=== PATIENT | female | born 1985 | race Hispanic/Latino ===

== ENCOUNTER 2020-05-08 21:41 | Inpatient (IN) | payer SELFPAY ==
--- OUTSIDE RECORDS SUMMARY | 2020-05-08 21:43 | XMS REPORT | Continuity of Care Document ---
:1985 Author Organization [facility] t Address [address] [place] [address] Dr. Adamson [address] [place] [id number] Care Team Providers Name Role Phone Unavailable Unavailable Unavailable Problems This patient has no known problems. Allergies, Adverse Reactions, Alerts This patient has no known allergies or adverse reactions. Medications This patient has no known medications. Procedures This patient has no known procedures. Results This patient has no known results.
[2020-05-08] MEDS ORDERED: IBUPROFEN 200 MG TAB PO ONE (22:23)
[2020-05-08] MEDS ORDERED: IBUPROFEN 400 MG TAB ONE (22:23)
[2020-05-08] MEDS ORDERED: NA CHLORIDE 0.9% 1,000 ML ONE ×2 (23:35→23:48)
[2020-05-08] MEDS ORDERED: CEFTRIAXONE/SWI 1gm 1 GM/10 ML SYR ONE (23:48)
[2020-05-09] MEDS ORDERED: MORPHINE 2 MG/ML SYR ONE (00:16)
[2020-05-09] MEDS ORDERED: ONDANSETRON 4 MG/2 ML VIAL ONE (00:16)
[2020-05-09 00:23] LABS: Absolute Lymphocytes (CBC) 0.6 K/uL (0.7-4.9); Basophils % 0.2 % (0-1.3); Hematocrit 37.4 % (36.0-45.0); Lymphocytes % 2.8 % (15.3-44.8); MPV 8.9 fL (7.6-11.3); RBC Red Blood Cell Count 4.15 M/uL (3.86-4.86)
[2020-05-09 00:24] LABS: Albumin 3.7 g/dL (3.4-5.0); Bilirubin Total 0.3 mg/dL (0.2-1.0); Potassium 3.3 mmol/L (3.5-5.1)
[2020-05-09] MEDS ORDERED: DIPHENHYDRAMINE 50 MG/ML VIAL ONE (00:29)
[2020-05-09] MEDS ORDERED: AZITHROMYCIN 500 MG INJ IVPB ONE (01:17)
[2020-05-09] MEDS ORDERED: NA CHLORIDE 0.9% 0 ML ONE (01:18)
[2020-05-09 01:38] LABS: Blood Morphology Comment NOT SEEN (NOT SEEN); Platelet Estimate ADEQ
--- NOTE | 2020-05-09 01:48 | EDPHYS ---
Physician Documentation [facility] Name: Carmelita Veras Age: 35 yrs Sex: Female : 1985 Arrival Date: 05/08/2020 Time: 21:44 Bed 20 Private MD: ED Physician Nba Reynolds HPI: 05/08 22:37 This 35 yrs old Female presents to ER via Ambulatory with complaints of Fever, derek Cough. 22:37 The patient reports fever, that was measured at 102 degrees Fahrenheit. Onset: The derek symptoms/episode began/occurred 4 day(s) ago. Modifying factors: there are no obvious modifying factors. Associated signs and symptoms: Pertinent positives: arthralgias, cough, runny nose, sinus congestion, sore throat. Severity of symptoms: At their worst the symptoms were. 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 - Social history:: Smoking status: Patient reports the use of cigarette tobacco products, smokes one-half pack cigarettes per day. ROS: 22:37 Eyes: Negative for injury, pain, redness, and discharge, Neck: Negative for injury, derek pain, and swelling, Cardiovascular: Negative for chest pain, palpitations, and edema, Abdomen/GI: Negative for abdominal pain, nausea, vomiting, diarrhea, and constipation, Back: Negative for injury and pain, : Negative for injury, bleeding, discharge, and swelling, MS/Extremity: Negative for injury and deformity, Skin: Negative for injury, rash, and discoloration, Neuro: Negative for headache, weakness, numbness, tingling, and seizure, Psych: Negative for depression, anxiety, suicide ideation, homicidal ideation, and hallucinations, Allergy/Immunology: Negative for hives, rash, and allergies, Endocrine: Negative for neck swelling, polydipsia, polyuria, polyphagia, and marked weight changes, Hematologic/Lymphatic: Negative for swollen nodes, abnormal bleeding, and unusual bruising. 22:37 Constitutional: Positive for body aches, chills, fatigue, fever, malaise. 22:37 Eyes: 22:37 ENT: Positive for sore throat. 22:37 Cardiovascular: Positive for palpitations. 22:37 Respiratory: Positive for cough. 22:37 MS/extremity: Positive for pain, of the right leg and left leg. Exam: 22:37 Head/Face: Normocephalic, atraumatic. Eyes: Pupils equal round and reactive to light, derek extra-ocular motions intact. Lids and lashes normal. Conjunctiva and sclera are non-icteric and not injected. Cornea within normal limits. Periorbital areas with no swelling, redness, or edema. Neck: Trachea midline, no thyromegaly or masses palpated, and no cervical lymphadenopathy. Supple, full range of motion without nuchal rigidity, or vertebral point tenderness. No Meningismus. Chest/axilla: Normal chest wall appearance and motion. Nontender with no deformity. No lesions are appreciated. Cardiovascular: Regular rate and rhythm with a normal S1 and S2. No gallops, murmurs, or rubs. Normal PMI, no JVD. No pulse deficits. Respiratory: Lungs have equal breath sounds bilaterally, clear to auscultation and percussion. No rales, rhonchi or wheezes noted. No increased work of breathing, no retractions or nasal flaring. Abdomen/GI: Soft, non-tender, with normal bowel sounds. No distension or tympany. No guarding or rebound. No evidence of tenderness throughout. Back: No spinal tenderness. No costovertebral tenderness. Full range of motion. Skin: Warm, dry with normal turgor. Normal color with no rashes, no lesions, and no evidence of cellulitis. MS/ Extremity: Pulses equal, no cyanosis. Neurovascular intact. Full, normal range of motion. Neuro: Awake and alert, GCS 15, oriented to person, place, time, and situation. Cranial nerves II-XII grossly intact. Motor strength 5/5 in all extremities. Sensory grossly intact. Cerebellar exam normal. Normal gait. Psych: Awake, alert, with orientation to person, place and time. Behavior, mood, and affect are within normal limits. 22:37 ENT: Posterior pharynx: Airway: normal, no evidence of obstruction, Tonsils: bilaterally enlarged, with erythema, with exudate, Uvula: normal, midline, non-edematous, no erythema, swelling, is not appreciated, erythema, is not appreciated, exudate, is not appreciated, peritonsillar mass, is not appreciated, pooling of secretions, is not appreciated. 23:36 Musculoskeletal/extremity: DVT Exam: No signs of deep vein thrombosis. no pain, no derek swelling, no tenderness, negative Homans' sign noted on exam, no appreciated bluish discoloration, no erythema, no increased warmth. 05/09 00:39 Musculoskeletal/extremity: ROM: intact in all extremities, full active range of motion, derek full passive range of motion, Circulation is intact in all extremities. Sensation intact. Compartment Syndrome exam of affected extremity: is normal. 01:10 Neck: ROM/movement: is normal, no acute changes, Meningeal signs: are not present, derek Kernig's sign is negative, Brudzinski's sign is negative. Vital Signs: 05/08 22:07 BP 103 / 57; Pulse 89; Resp 18; Temp 101.8(O); Pulse Ox 99% on R/A; lp1 22:12 Weight 56.7 kg (R); Height 4 ft. 11 in. (149.86 cm); lp1 05/09 01:31 BP 98 / 55; Pulse 68; Resp 16; Temp 99.6(O); Pulse Ox 100% on R/A; Pain 2/10; jb4 02:18 BP 101 / 62; Pulse 69; Resp 16; Pulse Ox 100% on R/A; jb4 03:05 BP 91 / 47; Pulse 64; Resp 16; Pulse Ox 100% on R/A; jb4 04:04 BP 93 / 53; Pulse 67; Resp 16; Pulse Ox 100% on R/A; jb4 04:18 Temp 98.2(O); jb4 05/08 22:12 Body Mass Index 25.25 (56.70 kg, 149.86 cm) lp1 MDM: 05/08 22:25 Patient medically screened. [facility] 22:49 Data reviewed: vital signs, nurses notes, lab test result(s), radiologic studies, plain derek films. 22:49 Differential diagnosis: viral Infection, bacterial infection, URI, bronchitis, derek pneumonia UTI. 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 rate is 89 beats/min, rhythm is normal sinus rhythm, Pulse oximetry: on room air is 99 %. Test interpretation: by ED physician or midlevel provider: plain radiologic studies. Counseling: I had a detailed discussion with the patient and/or guardian regarding: the historical points, exam findings, and any diagnostic results supporting the discharge/admit diagnosis, lab results, radiology results. 23:33 ED course: improved, follow up pcp/ dr ross. [facility] 05/09 01:08 ED course: pt feeling better, no abd pain, no cvat, non toxic, mono pending, ct pe derek pending, no homans and or cords, no hx dvt. 05/08 22:12 Order name: Flu; Complete Time: 23:31 lp1 05/08 22:12 Order name: Strep; Complete Time: 23:31 [facility] 05/08 22:36 Order name: COVID-19 [facility] 05/08 22:49 Order name: CBC with Diff; Complete Time: 01:44 [facility] 05/08 22:49 Order name: Comprehensive Metabolic Panel; Complete Time: 00:26 [facility] 05/08 23:14 Order name: Throat Culture [facility] 05/08 23:34 Order name: [place] Screen Profile; Complete Time: 01:30 ma 05/09 00:36 Order name: Manual Differential; Complete Time: 01:44 [facility] 05/09 00:39 Order name: Blood Culture Adult (2) [facility] 05/09 00:39 Order name: Lactate; Complete Time: 01:46 [facility] 05/09 00:39 Order name: Procalcitonin; Complete Time: 02:11 [facility] 05/09 01:06 Order name: Urine Dipstick--Ancillary (enter results) ma 05/09 01:06 Order name: Urine --Ancillary (enter results) ma 05/09 01:34 Order name: Urine Culture [facility] 05/08 22:36 Order name: PO challenge; Complete Time: 22:42 [facility] 05/08 22:36 Order name: Chest Single View XRAY [facility] 05/08 22:50 Order name: Urine Dipstick-Ancillary (obtain specimen); Complete Time: 01:06 [facility] 05/08 22:50 Order name: Urine Test (obtain specimen); Complete Time: 01:06 [facility] 05/09 00:39 Order name: CT Chest For PE Angio [facility] 05/09 01:48 Order name: INCENTIVE SPIROMETRY [facility] 05/09 00:27 Order name: PO challenge: juice; Complete Time: 01:32 [facility] Administered Medications: 05/08 22:21 Drug: Motrin 600 mg Route: PO; lp1 05/09 00:00 Follow up: Response: No adverse reaction; Temperature is decreased jb4 00:28 Drug: Zofran (Ondansetron) 4 mg Route: IVP; Site: right forearm; jb4 01:00 Follow up: Response: No adverse reaction; Nausea is decreased jb4 00:30 Drug: NS 0.9% 1000 ml Route: IV; Rate: 1 bolus; Site: right forearm; jb4 01:30 Follow up: Response: No adverse reaction; IV Status: Completed infusion; IV Intake: jb4 1000ml 00:30 Drug: NS 0.9% 1000 ml Route: IV; Rate: 1 bolus; Site: right antecubital; jb4 00:32 Drug: morphine 2 mg Route: IVP; Site: right forearm; jb4 00:33 Follow up: Response: Adverse reaction, Physician notified; Pain is decreased jb4 00:35 Drug: Benadryl 25 mg Route: IVP; Site: right forearm; jb4 01:32 Follow up: Response: No adverse reaction; Marked relief of symptoms jb4 00:36 Drug: Rocephin 1 grams Route: IV; Rate: per protocol; Site: right antecubital; jb4 00:39 Follow up: Response: No adverse reaction; IV Status: Completed infusion jb4 01:15 Not Given (Duplicate Order): Zithromax 500 mg IVPB once over 1 hrs; mix in 250 mL NS [facility] 01:50 Drug: Tylenol 650 mg Route: PO; jb4 02:50 Follow up: Response: No adverse reaction; Pain is decreased jb4 02:08 Not Given (Physician Discretion): Augmentin 875 mg PO once jb4 Disposition: 05/09/20 02:14 Hospitalization ordered by Obed Quiroz for Observation. Preliminary diagnosis are Fever, unspecified, Acute tonsillitis, Malaise and fatigue, Elevated white blood cell count, Bandemia, Urinary tract infection, site not specified. - Bed requested for Telemetry/MedSurg (observation). - Status is Observation. ss - Condition is Stable. - Problem is new. - Symptoms have improved. Signatures: Dispatcher [employer] EDMS Nba Reynolds MD MD cha Smirch, Shelby, RN RN ss Lisa Jones RN RN lp1 Deborah Rubio RN RN tl1 Manuel Altamirano, RN RN jb4 Emmy Justin Corrections: (The following items were deleted from the chart) 02:10 01:47 05/09/2020 01:47 Discharged to Home. Impression: Fever, unspecified; Acute derek tonsillitis; Cough; Hypokalemia; Elevated white blood cell count; Urinary tract infection, site not specified; Bandemia. Condition is Stable. Discharge Instructions: Fever, Adult, Tonsillitis, [id number], Fever, Adult, [id number], Urinary Tract Infection, Adult, Urinary Tract Infection, Adult, [id number], Cough, Adult. Prescriptions for Zofran 4 mg Oral Tablet - take 1 tablet by ORAL route every 12 hours As needed; 14 tablet, Augmentin 875-125 mg Oral Tablet - take 1 tablet by ORAL route every 12 hours for 10 days; 20 tablet. and Forms are Medication Reconciliation Form, Thank You Letter, Antibiotic Education, Prescription Opioid Use. Follow up: Private Physician; When: 2 - 3 days; Reason: Recheck today's complaints, Continuance of care, Re-evaluation by your physician. Follow up: Jose Jordan; When: 2 - 3 days; Reason: Recheck today's complaints, Re-evaluation by your physician. Problem is new. Symptoms have improved. derek 04:17 02:14 Hospitalization Ordered by Obed Quiroz for Observation. Preliminary diagnosis tl1 is Fever, unspecified; Acute tonsillitis; Malaise and fatigue; Elevated white blood cell count; Bandemia; Urinary tract infection, site not specified. Bed requested for Telemetry/MedSurg (observation). Status is Observation. Condition is Stable. Problem is new. Symptoms have improved. derek 07:55 04:17 05/09/2020 02:14 Hospitalization Ordered by Obed Quiroz for Observation. eb Preliminary diagnosis is Fever, unspecified; Acute tonsillitis; Malaise and fatigue; Elevated white blood cell count; Bandemia; Urinary tract infection, site not specified. Bed requested for [facility] ER [facility]. Status is Observation. Condition is Stable. Problem is new. Symptoms have improved. tl1 08:35 07:55 05/09/2020 02:14 Hospitalization Ordered by Obed Quiroz for Observation. ss Preliminary diagnosis is Fever, unspecified; Acute tonsillitis; Malaise and fatigue; Elevated white blood cell count; Bandemia; Urinary tract infection, site not specified. Bed requested for Telemetry/MedSurg (observation). Status is Observation. Condition is Stable. Problem is new. Symptoms have improved. eb
--- NOTE | 2020-05-09 01:48 | ER ---
Nurse's Notes [facility] Name: Carmelita Veras Age: 35 yrs Sex: Female : 1985 Arrival Date: 05/08/2020 Time: 21:44 Bed 20 Private MD: Diagnosis: Fever, unspecified;Acute tonsillitis;Malaise and fatigue;Elevated white blood cell count;Bandemia;Urinary tract infection, site not specified Presentation: 05/08 22:07 Chief complaint: Patient states: Patient complaint of fever, cough, general body lp1 cramps, nausea, throat pain x 3 days; States fever of 103.3 an hour ago, took x2 650 mg Tylenol. Coronavirus screen: Patient reports a cough. Patient denies shortness of breath or difficulty breathing. Patient reports a measured and/or subjective temperature greater than 100.4F. Patient denies travel on a cruise ship or to a country the [facility] currently lists as an affected area. Patient denies contact with known and/or suspected case of COVID-19. Ebola Screen: No symptoms or risks identified at this time. Initial Sepsis Screen: Does the patient meet any 2 criteria? No. Patient's initial sepsis screen is negative. Does the patient have a suspected source of infection? No. Patient's initial sepsis screen is negative. Risk Assessment: Do you want to hurt yourself or someone else? Patient reports no desire to harm self or others. Onset of symptoms was December 05, 2019. 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 - Social history:: Smoking status: Patient reports the use of cigarette tobacco products, smokes one-half pack cigarettes per day. Screenin:10 Abuse screen: Denies threats or abuse. Denies injuries from another. Nutritional lp1 screening: No deficits noted. Tuberculosis screening: No symptoms or risk factors identified. Fall Risk None identified. Assessment: 22:50 General: Appears in no apparent distress. uncomfortable, Behavior is cooperative, jb4 anxious, crying. Pain: Complains of pain in abdomen, right leg and left leg Pain radiates to low back area Pain currently is 10 out of 10 on a pain scale. Quality of pain is described as burning. Neuro: Level of Consciousness is awake, alert, obeys commands, Oriented to person, place, time, situation. Cardiovascular: Patient's skin is warm and dry. Respiratory: Airway is patent Respiratory effort is even, unlabored, Respiratory pattern is regular, symmetrical, Denies shortness of breath. GI: Abdomen is flat, non-distended, Reports lower abdominal pain, nausea. : Reports pain in lower back. EENT: Throat is clear is reddened with gag reflex present. Derm: Skin is intact, Skin is pink, warm \T\ dry. Musculoskeletal: Circulation, motion, and sensation intact. Range of motion: intact in all extremities. 05/09 00:00 Reassessment: Patient appears in no apparent distress at this time. Patient and/or jb4 family updated on plan of care and expected duration. Pain level reassessed. Patient is alert, oriented x 3, equal unlabored respirations, skin warm/dry/pink. 01:00 Reassessment: Patient appears in no apparent distress at this time. Patient and/or jb4 family updated on plan of care and expected duration. Pain level reassessed. Patient is alert, oriented x 3, equal unlabored respirations, skin warm/dry/pink. Patient states feeling better. Patient states symptoms have improved. 01:30 Reassessment: Patient appears in no apparent distress at this time. Patient and/or jb4 family updated on plan of care and expected duration. Pain level reassessed. Patient is alert, oriented x 3, equal unlabored respirations, skin warm/dry/pink. Pt reports leg pain is much better. Patient states feeling better. 02:30 Reassessment: Patient appears in no apparent distress at this time. Patient and/or jb4 family updated on plan of care and expected duration. Pain level reassessed. Patient is alert, oriented x 3, equal unlabored respirations, skin warm/dry/pink. 03:30 Reassessment: Patient appears in no apparent distress at this time. Patient and/or jb4 family updated on plan of care and expected duration. Pain level reassessed. Patient is alert, oriented x 3, equal unlabored respirations, skin warm/dry/pink. Patient states feeling better. 04:04 Reassessment: Patient appears in no apparent distress at this time. Patient and/or jb4 family updated on plan of care and expected duration. Pain level reassessed. Patient is alert, oriented x 3, equal unlabored respirations, skin warm/dry/pink. Pt reports normally having low blood pressure. 04:18 Reassessment: REport given to RAIMUNDO Moreno. jb4 Vital Signs: 05/08 22:07 BP 103 / 57; Pulse 89; Resp 18; Temp 101.8(O); Pulse Ox 99% on R/A; lp1 22:12 Weight 56.7 kg (R); Height 4 ft. 11 in. (149.86 cm); lp1 05/09 01:31 BP 98 / 55; Pulse 68; Resp 16; Temp 99.6(O); Pulse Ox 100% on R/A; Pain 2/10; jb4 02:18 BP 101 / 62; Pulse 69; Resp 16; Pulse Ox 100% on R/A; jb4 03:05 BP 91 / 47; Pulse 64; Resp 16; Pulse Ox 100% on R/A; jb4 04:04 BP 93 / 53; Pulse 67; Resp 16; Pulse Ox 100% on R/A; jb4 04:18 Temp 98.2(O); jb4 05/08 22:12 Body Mass Index 25.25 (56.70 kg, 149.86 cm) lp1 ED Course: 05/08 21:44 Patient arrived in ED. cl3 22:10 Triage completed. lp1 22:10 Arm band placed on right wrist. lp1 22:21 Flu and/or RSV swab sent to lab. Strep swab sent to lab. lp1 22:25 Nba Reynolds MD is Attending Physician. [facility] 22:42 Manuel Altamirano, RAIMUNDO is Primary Nurse. jb4 22:53 Chest Single View XRAY In Process Unspecified. EDMS 05/09 01:22 CT Chest For PE Angio In Process Unspecified. EDMS 01:47 Jose Jordan MD is Referral Physician. [facility] 02:12 Obed Quiroz is Hospitalizing Provider. [facility] Administered Medications: 06/24 22:21 Drug: Motrin 600 mg Route: PO; lp1 05/09 00:00 Follow up: Response: No adverse reaction; Temperature is decreased jb4 00:28 Drug: Zofran (Ondansetron) 4 mg Route: IVP; Site: right forearm; jb4 01:00 Follow up: Response: No adverse reaction; Nausea is decreased jb4 00:30 Drug: NS 0.9% 1000 ml Route: IV; Rate: 1 bolus; Site: right forearm; jb4 01:30 Follow up: Response: No adverse reaction; IV Status: Completed infusion; IV Intake: jb4 1000ml 00:30 Drug: NS 0.9% 1000 ml Route: IV; Rate: 1 bolus; Site: right antecubital; jb4 00:32 Drug: morphine 2 mg Route: IVP; Site: right forearm; jb4 00:33 Follow up: Response: Adverse reaction, Physician notified; Pain is decreased jb4 00:35 Drug: Benadryl 25 mg Route: IVP; Site: right forearm; jb4 01:32 Follow up: Response: No adverse reaction; Marked relief of symptoms jb4 00:36 Drug: Rocephin 1 grams Route: IV; Rate: per protocol; Site: right antecubital; jb4 00:39 Follow up: Response: No adverse reaction; IV Status: Completed infusion jb4 01:15 Not Given (Duplicate Order): Zithromax 500 mg IVPB once over 1 hrs; mix in 250 mL NS derek 01:50 Drug: Tylenol 650 mg Route: PO; jb4 02:50 Follow up: Response: No adverse reaction; Pain is decreased jb4 02:08 Not Given (Physician Discretion): Augmentin 875 mg PO once jb4 Intake: 01:30 IV: 1000ml; Total: 1000ml. jb4 Outcome: 01:47 Discharge ordered by . derek 02:14 Decision to Hospitalize by Provider. derek 08:35 Patient left the ED. ss Signatures: Dispatcher [employer] EDCA Nba Reynolds MD MD cha Smirch, Shelby, RN RN ss Lisa Jones, RN RN lp1 Manuel Altamirano RN RN jb4 Linda Reyes cl3 Corrections: (The following items were deleted from the chart) 01:33 00:00 Response: No adverse reaction; Temperature is decreased jb4 jb4 04:18 04:04 Reassessment: Patient appears in no apparent distress at this time. Patient jb4 and/or family updated on plan of care and expected duration. Pain level reassessed. Patient is alert, oriented x 3, equal unlabored respirations, skin warm/dry/pink. jb4
[2020-05-09] MEDS ORDERED: ACETAMINOPHEN 325 MG TABLET ONE (01:54)
[2020-05-09 02:57] LABS: Urine Blood 2+ (NEG); Urine Glucose NEGATIVE (NEG); Urine Protein TRACE (NEG)
--- NOTE | 2020-05-09 03:30 | P.HP ---
Certification for Inpatient Patient admitted to: Observation With expected LOS: <2 Midnights Practitioner: I am a practitioner with admitting privileges, knowledge of patient current condition, hospital course, and medical plan of care. Services: Services provided to patient in accordance with Admission requirements found in Title 42 Section 412.3 of the Code of Federal Regulations Patient History Date of Service: 05/09/20 Reason for admission: Febrile illness History of Present Illness: 35-year-old woman with a history of nephrolithiasis presented emergency department with a complaint of fever, sore throat, generalized body aches, nausea and vomiting which has been present for 3 days. She reports painful swallowing and nonproductive cough. Workup in the ED revealed leukocytosis, fever up to 101, bandemia and elevated procalcitonin. Rapid Monospot test is negative. Patient is hospitalized for further management. Allergies Tramadol HCl Allergy (Uncoded 08/03/17 17:30) Unknown - Past Medical/Surgical History -: Nephrolithiasis -: Ovarian cyst - Family History Family History: Reviewed- Non-Contributory - Social History Smoking Status: Never smoker Alcohol use: No CD- Drugs: No Place of Residence: Home Review of Systems Other: Except as documented, all other systems reviewed and negative. Physical Examination - Physical Exam General: Alert, In no apparent distress HEENT: Mucous membr. moist/pink, Sclerae nonicteric Neck: Supple, JVD not distended Respiratory: Clear to auscultation bilaterally, Normal air movement Cardiovascular: No edema, Regular rate/rhythm, Normal S1 S2 Gastrointestinal: Normal bowel sounds, Soft and benign, No tenderness Musculoskeletal: No swelling, No erythema Integumentary: No rashes Neurological: Normal speech, Normal strength at 5/5 x4 extr - Studies Laboratory Data (last 24 hrs) 05/08/20 23:50: Sodium 135 L, Potassium 3.3 L, BUN 12, Creatinine 0.84, Glucose 133 H, Total Bilirubin 0.3, AST 47 H, ALT 36, Alkaline Phosphatase 64 05/08/20 23:50: WBC 22.0 H*, Hgb 12.2, Hct 37.4, Plt Count 184 Microbiology Data (last 24 hrs): 05/08/20 22:15 Nasopharnyx Influenza Type A Antigen Screen - Final 05/08/20 22:15 Nasopharnyx Influenza Type B Antigen Screen - Final 05/08/20 22:15 Throat Group A Streptococcus Rapid Screen - Final Assessment and Plan - Problems (Diagnosis) (1) Febrile illness, acute Current Visit: Yes Status: Acute (2) Leukocytosis Current Visit: Yes Status: Acute (3) Acute tonsillitis Current Visit: Yes Status: Acute - Plan Place under observation Supportive measures IV hydration Empiric IV Rocephin. Droplet isolation Screened for COVID 19 - Advance Directives Does patient have a Living Will: No Does patient have a Durable POA for Healthcare: No
[2020-05-09] MEDS ORDERED: ONDANSETRON 4 MG/2 ML VIAL IV PRN (04:37)
[2020-05-09] MEDS: NA CHLORIDE 0.9% 1,000 ML IV SCH ×2 (04:37→14:37)
[2020-05-09] MEDS ORDERED: NA CHLORIDE 0.9% 1,000 ML ONE (05:27)
[2020-05-09] MEDS: HYDROCODONE/APAP 5/325 MG TAB PO PRN ×3 (05:48→20:06)
[2020-05-09] MEDS ORDERED: HYDROCODONE/APAP 5/325 MG TAB ONE (05:51)
[2020-05-09] MEDS ORDERED: CEFTRIAXONE/SWI 1gm 1 GM/10 ML SYR ONE (07:00)
[2020-05-09] MEDS ORDERED: CEFTRIAXONE 1 GM/NS 50 ML 1 GM/50 ML BAG IV SCH (07:00)
--- NOTE | 2020-05-09 08:50 | RAD REPORT ---
EXAM DESCRIPTION: RAD - Chest Single View - 05/08/2020 10:53 pm CLINICAL HISTORY: Cough;Fever Chest pain. COMPARISON: Chest Single View dated 08/03/2017; CHEST PA AND LAT 2 VIEW dated 01/22/2014; CHEST SINGLE VIEW dated 09/17/2008; CHEST PA AND LAT 2 VIEW dated 07/02/1998 FINDINGS: Portable technique limits examination quality. The lungs are grossly clear. The heart is normal in size. No displaced fractures. IMPRESSION: No acute intrathoracic process suspected.
[2020-05-09] MEDS ORDERED: ACETAMINOPHEN 325 MG TABLET PO ONE (08:53)
[2020-05-09] MEDS: CEFTRIAXONE/SWI 1gm 1 GM/10 ML SYR IV SCH (09:48)
[2020-05-09] MEDS: ENOXAPARIN 40 MG/0.4 ML SQ SCH (09:49)
[2020-05-09] MEDS ORDERED: KETOROLAC 30 MG/ML INJ IV ONE ×2 (11:54→23:07)
[2020-05-09] MEDS ORDERED: PHENOL 1.4% ORAL SPRAY 180ML MM PRN (11:54)
[2020-05-09 12:08] VITALS: BMI 25.2
[2020-05-09] MEDS ORDERED: POTASSIUM CL SA 10 MEQ TAB PO ONE (14:19)
[2020-05-09] MEDS: MORPHINE 2 MG/ML SYR IV PRN ×2 (15:04→18:46)
--- NOTE | 2020-05-09 20:10 | PN ---
Date of Progress Note: 05/09/2020 Subjective: Patient continues to complain of some headache, which was improved with Toradol. Still having some sore throat. Medications: List reviewed. Physical Examination: Deferred. Patient was seen around 4 a.m. this morning by admitting physician. Due to risk of COVID transition physical examination has been deferred. Laboratory Data: Procalcitonin 25. [place] screen negative. UA shows trace leukocyte esterase. Influenza screen is negative. Group A strep rapid screen also negative. Assessment And Plan: 1. Acute febrile illness. I am suspecting Coronavirus disease. Patient is under investigation. Test has been sent out to [facility], currently pending. We will continue with supportive care. 2. Acute tonsillitis. 3. Abnormal urinalysis, possible urinary tract infection. We will start on Rocephin. 4. Deep vein thrombosis prophylaxis, Lovenox. PLAN: Continue droplet isolation. Follow up on COVID screening. We will adjust pain medications. CT angio chest shows no pulmonary embolism, no focal consolidation, mild interstitial edema and/or atelectasis. We will continue symptomatic treatment. BHUPENDRA Voice ID: [id number] Report ID: [id number] MARCELO
[2020-05-10] MEDS: NA CHLORIDE 0.9% 1,000 ML IV SCH ×2 (00:37→10:05)
[2020-05-10] MEDS ORDERED: MORPHINE 4 MG/ML SYR IV ONE (00:41)
[2020-05-10 00:59] VITALS: TEMP 98.4
[2020-05-10] MEDS: ACETAMINOPHEN 500 MG TAB PO PRN ×3 (01:00→11:07)
--- NOTE | 2020-05-10 02:51 | RAD REPORT ---
EXAM DESCRIPTION: CT Angiography Chest With Intravenous Contrast CLINICAL HISTORY: The patient is 35 years old and is Female; 22 k wbc;Chest pain;Dyspnea;Fever TECHNIQUE: Axial computed tomographic angiography images of the chest with intravenous contrast. T his CT exam was performed using one or more of the following dose reduction techniques: automated e xposure control, adjustment of the mA and/or kV according to patient size, and/or use of iterative re construction technique. MIP reconstructed images were created and reviewed. Oblique reformatted images were created and reviewed. DLP: 200 mGy*cm COMPARISON: Chest radiograph of the same day. FINDINGS: PULMONARY ARTERIES: Unremarkable. No pulmonary embolism. AORTA: No acute findings. No thoracic aortic aneurysm. LUNGS: Mild interlobular septal thickening. Dependent subsegmental atelectasis. No focal consolida tion. PLEURAL SPACE: Unremarkable. No significant effusion. No pneumothorax. HEART: Unremarkable. No cardiomegaly. No significant pericardial effusion. No evidence of RV dysfunction. BONES/JOINTS: No acute fracture. No dislocation. SOFT TISSUES: Bilateral breast implants. LYMPH NODES: Unremarkable. No enlarged lymph nodes. IMPRESSION: 1. No pulmonary embolism. No focal consolidation. 2. Mild interstitial edema and/or atelectasis. Electronically signed by: Chrisitan Cancino DO 05/09/2020 1:32 AM CDT Due to temporary technical issues with the PACS/Fluency reporting system, reports are being signed by the in house radiologist without review as a courtesy to ensure prompt reporting. The interpreting r adiologist is fully responsible for the content of the report.
[2020-05-10 05:36] LABS: Absolute Lymphocytes (CBC) 1.9 K/uL (0.7-4.9); Basophils % 0.3 % (0-1.3); Hematocrit 30.6 % (36.0-45.0); Lymphocytes % 14.3 % (15.3-44.8); MPV 9.3 fL (7.6-11.3); RBC Red Blood Cell Count 3.38 M/uL (3.86-4.86)
[2020-05-10 05:43] LABS: BUN Blood Urea Nitrogen 6 mg/dL (7-18); Bicarbonate 20 mmol/L (21-32); Glucose Level 100 mg/dL (74-106); Magnesium 2.2 mg/dL (1.8-2.4); Phosphorus 2.1 mg/dL (2.5-4.9); Potassium 4.4 mmol/L (3.5-5.1); Sodium Level 140 mmol/L (136-145)
[2020-05-10] MEDS ORDERED: POTASS/SODIUM PHOSPHATE 1 PKT POWD.PACK PO SCH (07:00)
[2020-05-10] MEDS: CEFTRIAXONE/SWI 1gm 1 GM/10 ML SYR IV SCH (07:37)
[2020-05-10] MEDS: ENOXAPARIN 40 MG/0.4 ML SQ SCH (07:38)
[2020-05-10 07:46] VITALS: O2SAT 98
[2020-05-10 09:47] VITALS: BP 98/51
--- NOTE | 2020-05-11 01:42 | DS ---
Date of Discharge: 05/10/2020 Consultants: Dr. Allan IRVIN. Discharge Diagnoses: 1.Febrile illness, acute, Coronavirus disease test negative. 2.Leukocytosis, improved. 3.Acute tonsillitis. 4.Urinary tract infection, acute cystitis without hematuria. Hospital Course: Patient is a 35-year-old female, came in with fevers, sore throat and viral type sy mptoms. Chest x-ray was negative. CT scan showed no PE, did show some atelectasis and mild intersti tial edema. Patient's UA showed trace leukocyte esterase, negative nitrite. Patient did have elevat ed white blood cell count of 22,000. She was started on Rocephin. White blood cell count improved. Her symptoms improved significantly. Procal was up to 25. Patient has been afebrile since admissio n. No further fevers. Blood pressure is stable. She has significant improvement in her symptoms in cluding her throat. She will be discharged on cefuroxime for another 4 days to complete course of an tibiotics for her UTI. She is to follow up with primary care physician in 2-3 days. Follow up with Dr. Lemus in 2 weeks. Return to ER for worsening condition due to abundance of caution she should c ontinue to self isolate for 14 days despite her COVID testing being negative due to high symptoms and possibility of false negative test, does not need to be in the hospital. Afebrile. Tolerating diet . No hypoxia. Not a candidate for convalescent plasma or Remdesivir as her test was negative. Diet: Regular. Activities: As tolerated. Physical Examination: General: Awake, alert, oriented x3. No acute distress. CV: S1, S2. Respiratory: Moving air well bilaterally. Abdomen: Soft, nontender, nondistended. Positive bowel sounds. Extremities: No clubbing, cyanosis, edema. Neurologic: Nonfocal. SA/MODL Voice ID: [id number] Report ID: [id number]
== END 2020-05-10 12:35 | disposition home or self-care (01) | DRG 864 ==
LOC: ER 21:41 → ERHOLD 05-09 03:40 → OBSVTOIN 05-09 07:58 → 4TH 05-09 08:17
PROVIDERS: ADMIT Internal Medicine; ATTEND Family Medicine
PROC: 8E0ZXY6 Isolation (ICD-10-PCS; principal; 2020-05-09)
DX: R50.9 Fever, unspecified (principal); N30.00 Acute cystitis without hematuria; J03.90 Acute tonsillitis, unspecified; D72.829 Elevated white blood cell count, unspecified; R05 Cough; R60.9 Edema, unspecified; Z88.5 Allergy status to narcotic agent; Z20.828 Contact with and (suspected) exposure to other viral communicable diseases
CPT/HCPCS: 36415; 71045; 71275; 80048; 80053; 81003; 81025; 83605; 83735; 84100; 84145; 85025; 86308; 87040; 87070; 87081; 87086; 87088; 87804; 96361; 96374; 96375; 99284; G0378; J0456; J0696; J1200; J1650; J2270; J2405; J7030; Q9967; U0002

== ENCOUNTER 2021-11-11 13:30 | Emergency (ER) | payer SELFPAY ==
[2021-11-11 15:19] LABS: SARS-COV-2 RT PCR NEGATIVE (NEGATIVE)
--- NOTE | 2021-11-11 16:01 | EDPHYS ---
Physician Documentation [facility] Name: Carmelita Veras Age: 36 yrs Sex: Female : 1985 Arrival Date: 11/11/2021 Time: 13:34 Bed Waiting Private MD: ED Physician Jonh Mooney HPI: 11/11 16:55 This 36 yrs old Female presents to ER via Ambulatory with complaints of Sore kb Throat, Headache. 16:55 The patient presents with sore throat. The patient describes throat pain as constant. kb Onset: The symptoms/episode began/occurred last night. Severity of symptoms: At their worst the symptoms were mild, in the emergency department the symptoms are unchanged. Modifying factors: The symptoms are alleviated by nothing, the symptoms are aggravated by swallowing, Patient's oral intake status: good. Associated signs and symptoms: Pertinent positives: headache, Sore throat sneezing. The patient has not experienced similar symptoms in the past. The patient has not recently seen a physician. Pt reports headache, sore throat and sneezing since last night. ROS: 16:54 Constitutional: Negative for fever, chills, and weight loss. kb 16:54 ENT: Positive for sore throat, sneezing. 16:54 Neuro: Positive for headache. 16:54 All other systems are negative. Exam: 16:54 Constitutional: This is a well developed, well nourished patient who is awake, alert, kb and in no acute distress. Head/Face: Normocephalic, atraumatic. ENT: Moist Mucous membranes Cardiovascular: Regular rate and rhythm with a normal S1 and S2. No gallops, murmurs, or rubs. No pulse deficits. Respiratory: Respirations even and unlabored. No increased work of breathing. Talking in full sentences Skin: Warm, dry with normal turgor. Normal color. MS/ Extremity: Pulses equal, no cyanosis. Neurovascular intact. Full, normal range of motion. Neuro: Awake and alert, GCS 15, oriented to person, place, time, and situation. Moves all extremities. Normal gait. Psych: Awake, alert, with orientation to person, place and time. Behavior, mood, and affect are within normal limits. Vital Signs: 14:13 BP 103 / 64; Pulse 59; Resp 18; Temp 97.1; Pulse Ox 100% ; Weight 74.84 kg; Height 4 5 ft. 11 in. (149.86 cm); 14:13 Body Mass Index 33.33 (74.84 kg, 149.86 cm) [facility] MDM: 14:16 Patient medically screened. 16:53 Data reviewed: vital signs, nurses notes. Data interpreted: Pulse oximetry: on room air kb is 100 %. Interpretation: normal. Counseling: I had a detailed discussion with the patient and/or guardian regarding: the historical points, exam findings, and any diagnostic results supporting the discharge/admit diagnosis, lab results, the need for outpatient follow up, a family practitioner, to return to the emergency department if symptoms worsen or persist or if there are any questions or concerns that arise at home. 11/11 14:15 Order name: COVID-19/FLU A+B (Document "Date of Onset" if Symptomatic) 11/11 14:15 Order name: Strep 11/11 14:16 Order name: COVID-19/FLU A+B; Complete Time: 15:26 EDCO 11/11 14:16 Order name: Group A Streptococcus Rapid Sc; Complete Time: 15:26 EDCO 11/11 15:11 Order name: Throat Culture EDCO Administered Medications: No medications were administered Disposition: 17:22 Co-signature as Attending Physician, Jonh Mooney MD I agree with the assessment and kdr plan of care. Disposition Summary: 11/11/21 16:00 Discharge Ordered Location: Home kb Condition: Stable kb Diagnosis - Acute pharyngitis, unspecified kb Followup: kb - With: Emergency Department - When: As needed - Reason: Worsening of condition Followup: kb - With: Private Physician - When: 2 - 3 days - Reason: Recheck today's complaints, Continuance of care, Re-evaluation by your physician Discharge Instructions: - Discharge Summary Sheet kb - Pharyngitis, [id number]-me-[id number] kb Forms: - Medication Reconciliation Form kb - Thank You Letter kb - Antibiotic Education kb - Prescription Opioid Use kb Signatures: Dispatcher [employer] EDMS Lay Lo, GEOPHYSICAL DATA TECHNICIAN-C BERTHA-Jonh Quintanilla MD MD kdr
--- NOTE | 2021-11-11 16:01 | ER ---
Nurse's Notes [facility] Name: Carmelita Veras Age: 36 yrs Sex: Female : 1985 Arrival Date: 11/11/2021 Time: 13:34 Bed Waiting Private MD: Diagnosis: Acute pharyngitis, unspecified Presentation: 11/11 14:13 Chief complaint: Patient states: sore throat, GALARZA. Coronavirus screen: Vaccine status: [facility] Patient reports being unvaccinated. Client denies travel out of the [place] in the last 14 days. Ebola Screen: Patient negative for fever greater than or equal to 101.5 degrees Fahrenheit, and additional compatible Ebola Virus Disease symptoms Patient denies exposure to infectious person. Patient denies travel to an Ebola-affected area in the 21 days before illness onset. Initial Sepsis Screen: Does the patient meet any 2 criteria? No. Patient's initial sepsis screen is negative. Does the patient have a suspected source of infection? No. Patient's initial sepsis screen is negative. Risk Assessment: Do you want to hurt yourself or someone else? Patient reports no desire to harm self or others. 14:13 Method Of Arrival: Ambulatory [facility] 14:13 Acuity: JOSEFINA 4 [facility] Vital Signs: 14:13 BP 103 / 64; Pulse 59; Resp 18; Temp 97.1; Pulse Ox 100% ; Weight 74.84 kg; Height 4 [facility] ft. 11 in. (149.86 cm); 14:13 Body Mass Index 33.33 (74.84 kg, 149.86 cm) [facility] ED Course: 13:34 Patient arrived in ED. am2 14:15 Lay Lo FNP-C is [facility] abdoulaye 14:15 Jonh Mooney MD is Attending Physician. kb 14:17 Triage completed. [facility] Administered Medications: No medications were administered Outcome: 16:00 Discharge ordered by . kb 16:57 Patient left the ED. kb Signatures: Lay Lo FNP-C FNP-Ckb Moreno, Amanda am2 Ivet Mcpherson RN RN [facility]
[2021-11-11 17:21] VITALS: BP 103/64; TEMP 97.1; O2SAT 100
== END 2021-11-11 16:57 | disposition home or self-care (01) ==
LOC: ER 13:30
DX: J02.9 Acute pharyngitis, unspecified (principal); Z20.822 Contact with and (suspected) exposure to COVID-19
CPT/HCPCS: 0240U; 87070; 87081; 99281

== ENCOUNTER → 2023-11-08 | Emergency (ER) | payer SELFPAY ==
[~2023-11-08] MED LIST: CODEINE 30MG/APAP 300MG TAB ONE; CYCLOBENZAPRINE 10 MG TAB ONE; DIAZEPAM 5 MG TABLET ONE; IBUPROFEN 400 MG TAB ONE; PROMETHAZINE 25 MG TABLET ONE
--- OUTSIDE RECORDS SUMMARY | 2023-11-08 05:45 | XMS REPORT | Continuity of Care Document ---
Author Name Unknown Address [address] [place] [address] [address] thconnect Address [address] [facility] [address] [place] [address] Care Team Providers Care Right Of Way Appraiser Name Role Phone Unavailable Unavailable Unavailable Encounters Start Date/Time End Date/Time Encounter Type Admission Type Attending Clinicians Care Facility Care Department Encounter ID Source 2023-02-22 10:41:58 2023-02-22 10:41:58 Outpatient [facility] [id number] Ankit Ireland 2023-02-11 15:43:26 2023-02-11 15:43:26 Outpatient [facility] [id number] Ankit Ireland
--- NOTE | 2023-11-08 07:27 | EDPHYS ---
Physician Documentation [facility] Name: Carmelita Veras Age: 38 yrs Sex: Female : 1985 Arrival Date: 11/08/2023 Time: 05:41 Bed 13 Private MD: ED Physician Prakash Mckeon HPI: 11/08 06:05 This 38 yrs old Female presents to ER via Ambulatory with complaints of Cough, sp4 Congestion, Sore Throat, MUSCLE ACHES, Nausea/Vomiting. 06:10 Very pleasant 38-year-old female who presents with acute onset of chills, subjective sp4 fever, vomiting, body aches, sore throat, runny eyes. Is also associated cough that is dry. Muscle aches, nausea, and congestion. Patient has history of bilateral tubal ligation.. [employer]: 05:59 LMP 10/2023, unknown as6 Historical: - Allergies: 05:59 Tramadol HCl; as6 - PMHx: 05:59 Kidney stones; Ovarian cyst; as6 - PSHx: 05:59 Cholecystectomy; as6 - Immunization history:: Adult Immunizations up to date. - Social history:: Smoking status: Reported history of juuling and/or vaping. - Family history:: not pertinent. ROS: 06:10 Constitutional: Positive subjective fever, positive chills, positive cough, positive sp4 congestion, positive sore throat, positive body aches, positive nausea, positive vomit. Positive overall feeling unwell 06:10 All other systems are negative, Exam: 06:10 Constitutional: This is a well developed, well nourished patient who is awake, alert, sp4 uncomfortable appearing, nontoxic Head/Face: Normocephalic, atraumatic. Eyes: Pupils equal round and reactive to light, extra-ocular motions intact. Lids and lashes normal. Conjunctiva and sclera are not injected. Cornea within normal limits. Periorbital areas with no swelling, redness, or edema. ENT: Nares patent. No nasal discharge, no septal abnormalities noted. Tympanic membranes are normal and external auditory canals are clear. Positive bilateral pharyngeal erythema without exudates, positive bilateral tears, Neck: Trachea midline, no thyromegaly or masses palpated, and no cervical lymphadenopathy. Supple, full range of motion without nuchal rigidity, or vertebral point tenderness. Chest/axilla: Normal chest wall appearance and motion. Nontender with no deformity. No lesions are appreciated. Cardiovascular: Regular rate and rhythm with a normal S1 and S2. No gallops, murmurs, or rubs. Normal PMI, no JVD. No pulse deficits. Respiratory: Lungs have equal breath sounds bilaterally, clear to auscultation and percussion. No rales, rhonchi or wheezes noted. No increased work of breathing, no retractions or nasal flaring. Abdomen/GI: Soft, non-tender, with normal bowel sounds. No distension or tympany. No guarding or rebound. No evidence of tenderness throughout. Back: No spinal tenderness. No costovertebral tenderness. Skin: Warm, dry with normal turgor. Normal color with no rashes, no lesions, and no evidence of cellulitis. MS/ Extremity: Pulses equal, no cyanosis. Neurovascular intact. Full, normal range of motion. Neuro: Awake and alert, GCS 15, oriented to person, place, time, and situation. Cranial nerves II-XII grossly intact. Motor strength 5/5 in all extremities. Sensory grossly intact. Psych: Awake, alert, with orientation to person, place and time. Behavior, mood, and affect are within normal limits Vital Signs: 05:57 BP 94 / 58; Pulse 70; Resp 18 S; Temp 98.6(TE); Pulse Ox 100% on R/A; Weight 65.77 kg as6 (R); Height 4 ft. 11 in. (R); Pain 9/10; 07:24 BP 117 / 74; Pulse 62; Resp 17 S; Pulse Ox 100% on R/A; kc6 05:57 Body Mass Index 29.29 (65.77 kg, 149.86 cm) as6 05:57 Pain Scale: Adult as6 Prosper Coma Score: 06:09 Eye Response: spontaneous(4). Motor Response: obeys commands(6). Verbal Response: nw1 oriented(5). Total: 15. MDM: 06:33 Patient medically screened. sp4 07:24 Differential Diagnosis: Bronchitis Influenza Upper Respiratory Infection Sinusitis sp4 Pharyngitis. Data reviewed: vital signs, nurses notes, lab test result(s), Flu: positive. Consideration of Admission/Observation Escalation of care including admission/observation considered. ED course: Is positive for influenza B. Will prescribe ondansetron, Tamiflu, dextromethorphan, high-dose ibuprofen. COVID-19 negative. ED course: Patient had moderate to prominent anxiety attack in the emergency department and Valium p.o. was administered for acute anxiety attack . 11/08 06:05 Order name: Influenza Screen (a \T\ B) sp4 11/08 06:28 Order name: SARS-COV-2 RT PCR EDMS 11/08 06:28 Order name: Influenza Screen (A ; Complete Time: 07:11 EDMS Administered Medications: 06:24 Drug: Acetaminophen-Codeine PO (300 mg-30 mg) 2 tabs PO once; RASS on ADMIN: Combtv4, la4 Very Agttd3, Agttd2, Rstlss1, AlertClm0, Drwsy-1, Lt Sdtn-2, Mod Sdtn-3, Dp Sdtn-4, UnArsble-5 Route: PO; 07:25 Follow up: Response: No adverse reaction; Pain is decreased; RASS: Alert and Calm (0) kc6 06:24 Drug: Cyclobenzaprine PO 10 mg PO once Route: PO; la4 07:25 Follow up: Response: No adverse reaction; Pain is decreased; RASS: Alert and Calm (0) kc6 06:25 Drug: Ibuprofen PO 800 mg PO once Route: PO; la4 07:24 Follow up: Response: No adverse reaction; Pain is decreased kc6 06:25 Drug: Promethazine PO 25 mg PO once Route: PO; la4 07:24 Follow up: Response: No adverse reaction; Nausea is decreased; Vomiting decreased kc6 07:17 Not Given (Other Intervention Used): diazepam5 mg IVP once kc6 07:17 Drug: Diazepam PO 5 mg PO once Route: PO; kc6 07:45 Follow up: Response: No adverse reaction; Pain is decreased; Anxiety decreased; RASS: kc6 Alert and Calm (0) Disposition Summary: 11/08/23 07:26 Discharge Ordered Problem: new sp4 Symptoms: have improved sp4 Condition: Stable sp4 Diagnosis - Other specified viral diseases sp4 - Influenza B, acute anxiety attack sp4 Followup: sp4 - With: Private Physician - When: 7 - 10 days - Reason: Recheck today's complaints Discharge Instructions: - Discharge Summary Sheet sp4 - Influenza, Adult, Unbd-lf-Hqft sp4 Forms: - Patient Portal Instructions sp4 Prescriptions: - dextromethorphan-guaifenesin 10-200 mg Oral capsule - take 2 capsule ORAL route every 6 hours as needed for cough; 60 capsule; sp4 Refills: 0, Product Selection Permitted - Ibuprofen 800 mg Oral Tablet - take 1 tablet ORAL route every 8 hours As needed take with food; 30 tablet; sp4 Refills: 0, Product Selection Permitted - Tamiflu 75 mg Oral capsule - take 1 tablet ORAL route every 12 hours for 5 days; 10 tablet; Refills: 0, sp4 Product Selection Permitted - ondansetron 8 mg Oral Tablet,disintegrating - take 1 tablet ORAL route every 8 hours PRN vomiting; 30 tablet; Refills: 0, sp4 Product Selection Permitted Signatures: Dispatcher [employer] Jamison Jeronimo RN RN as6 Denisha Meneses RN RN kc6 Prakash Mckeon MD MD sp4 Elmira Nice RN RN la4
--- NOTE | 2023-11-08 07:27 | ER ---
Nurse's Notes [facility] Name: Carmelita Veras Age: 38 yrs Sex: Female : 1985 Arrival Date: 11/08/2023 Time: 05:41 Bed 13 Private MD: Diagnosis: Other specified viral diseases;Influenza B, acute anxiety attack Presentation: 11/08 05:57 Chief complaint: Patient states: flu like symptoms that started Wednesday and have been as6 worsening. Coronavirus screen: At this time, the client does not indicate any symptoms associated with coronavirus-19. Ebola Screen: No symptoms or risks identified at this time. Initial Sepsis Screen: Does the patient meet any 2 criteria? No. Patient's initial sepsis screen is negative. Does the patient have a suspected source of infection? No. Patient's initial sepsis screen is negative. Risk Assessment: Do you want to hurt yourself or someone else? Patient reports no desire to harm self or others. Onset of symptoms was November 05, 2023. 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 - Social history:: Smoking status: Reported history of juuling and/or vaping. - Family history:: not pertinent. Screenin:09 [facility] ED Fall Risk Assessment (Adult) History of falling in the last 3 months, nw1 including since admission No falls in past 3 months (0 pts) Confusion or Disorientation No (0 pts) Intoxicated or Sedated No (0 pts) Impaired Gait No (0 pts) Mobility Assist Device Used No (0 pt) Altered Elimination No (0 pt) Score/Fall Risk Level 0 - 2 = Low Risk Oriented to surroundings, Provided non-skid footwear, Hourly rounding (assess needs \T\ fall precautionary measures) done, Used ambulatory aids as needed (educated on \T\ assisted with). Abuse screen: Denies threats or abuse. Denies injuries from another. Nutritional screening: No deficits noted. Tuberculosis screening: No symptoms or risk factors identified. Assessment: 06:09 General: Appears uncomfortable, well groomed, well developed, Behavior is calm, nw1 cooperative, appropriate for age. Pain: Complains of pain in generalized. Neuro: Level of Consciousness is awake, alert, obeys commands, Oriented to person, place, time, situation, Appropriate for age Reports headache. Cardiovascular: Reports fatigue, nausea, Capillary refill < 3 seconds Rhythm is regular. Respiratory: Airway is patent Trachea midline Respiratory effort is even, unlabored, Respiratory pattern is regular, symmetrical, Sputum is thick, yellow Breath sounds are coarse. GI: Reports nausea. EENT: Reports nasal congestion since 11/04/23 nasal discharge pain. Derm: Skin is intact, is healthy with good turgor, Skin is dry, Skin is pale. 06:50 Reassessment: Pt states pain after receiving pain medication and MD notified. Per nw1 Linda, pt is to allow time for medication to work. Patient notified and continues to push call light 1 min after leaving room. Nurse Jerson Nice made aware. 07:00 Reassessment: Patient appears in no apparent distress at this time. Patient and/or kc6 family updated on plan of care and expected duration. Pain level reassessed. Patient is alert, oriented x 3, equal unlabored respirations, skin warm/dry/pink. Vital Signs: 05:57 BP 94 / 58; Pulse 70; Resp 18 S; Temp 98.6(TE); Pulse Ox 100% on R/A; Weight 65.77 kg as6 (R); Height 4 ft. 11 in. (R); Pain 9/10; 07:24 BP 117 / 74; Pulse 62; Resp 17 S; Pulse Ox 100% on R/A; kc6 05:57 Body Mass Index 29.29 (65.77 kg, 149.86 cm) as6 05:57 Pain Scale: Adult as6 Prosper Coma Score: 06:09 Eye Response: spontaneous(4). Motor Response: obeys commands(6). Verbal Response: nw1 oriented(5). Total: 15. ED Course: 05:45 Patient arrived in ED. jj6 05:58 Triage completed. as6 05:59 Arm band placed on. as6 06:03 Lauryn Marie, RAIMUNDO is Primary Nurse. nw1 06:04 Prakash Mckeon MD is Attending Physician. sp4 06:09 Patient has correct armband on for positive identification. Bed in low position. Call nw1 light in reach. Side rails up X2. Provided Education on: POC. 06:09 No provider procedures requiring assistance completed. Patient did not have IV access nw1 during this emergency room visit. 06:18 Influenza Screen (a \T\ B) Sent. nw1 06:18 SARS RAPID Sent. nw1 06:24 Elmira Nice RN is Primary Nurse. la4 07:00 Report received from Lauryn Marie RN. kc6 Administered Medications: 06:24 Drug: Acetaminophen-Codeine PO (300 mg-30 mg) 2 tabs PO once; RASS on ADMIN: Combtv4, la4 Very Agttd3, Agttd2, Rstlss1, AlertClm0, Drwsy-1, Lt Sdtn-2, Mod Sdtn-3, Dp Sdtn-4, UnArsble-5 Route: PO; 07:25 Follow up: Response: No adverse reaction; Pain is decreased; RASS: Alert and Calm (0) kc6 06:24 Drug: Cyclobenzaprine PO 10 mg PO once Route: PO; la4 07:25 Follow up: Response: No adverse reaction; Pain is decreased; RASS: Alert and Calm (0) kc6 06:25 Drug: Ibuprofen PO 800 mg PO once Route: PO; la4 07:24 Follow up: Response: No adverse reaction; Pain is decreased kc6 06:25 Drug: Promethazine PO 25 mg PO once Route: PO; la4 07:24 Follow up: Response: No adverse reaction; Nausea is decreased; Vomiting decreased kc6 07:17 Not Given (Other Intervention Used): diazepam5 mg IVP once kc6 07:17 Drug: Diazepam PO 5 mg PO once Route: PO; 6 07:45 Follow up: Response: No adverse reaction; Pain is decreased; Anxiety decreased; RASS: [facility] Alert and Calm (0) Medication: 06:09 VIS not applicable for this client. nw1 Outcome: 07:26 Discharge ordered by . sp4 07:45 Discharged to home ambulatory, with significant other, 6 07:45 Condition: improved 07:45 Discharge instructions given to patient, Instructed on discharge instructions, follow up and referral plans. medication usage, Demonstrated understanding of instructions, follow-up care, medications, Prescriptions given X 4, 07:45 Patient left the ED. kc6 Signatures: Ely Ivana jj6 Jamison Patterson RN RN jean paul6 Denisha Meneses RN RN kc6 Prakash Mckeon MD MD sp4 Elmira Nice RN RN la4 Lauryn Marie RN RN nw1 Corrections: (The following items were deleted from the chart) 06:52 06:50 Reassessment: Pt states pain after receiving pain medication and MD notified. Per nw1 MD Mckeon, pt is to allow time for medication to work. Patient notified and continues to push call light 1 min after leaving room. nw1
[2023-11-08 08:34] VITALS: BP 117/74; TEMP 98.6; O2SAT 100
== END ==
LOC: ER 05:41
DX: J10.1 Influenza due to other identified influenza virus with other respiratory manifestations (principal); B33.8 Other specified viral diseases; F41.0 Panic disorder [episodic paroxysmal anxiety]; Z11.52 Encounter for screening for COVID-19
CPT/HCPCS: 87635; 87804; 99283; Q0169

== ENCOUNTER 2024-12-13 06:56 | Emergency (ER) | payer OTHER, SELFPAY ==
--- OUTSIDE RECORDS SUMMARY | 2024-12-13 07:01 | XMS REPORT | Continuity of Care Document ---
Author Name Unknown Address [address] [facility] [place] [address] [facility] Address [address] [facility] [place] [address] Care Team Providers Care Robotics Testing Technician Name Role Phone PCP, PATIENT DOES NOT HAVE A Primary Care Physic flora Unavailable NEHAL AKBAR Attending Clinician Unavailab Nehal Chase Attending Clinician [phone] SHERICE MCMAHON Attending Clinician Unavailable SHERICE MCMAHON Attending Clinician Unavailable AURORA SPENCER Attending Clinician Unavailable Alton Calderon MD Attending Clinician [phone] Aurora Spencer MD Attending Clinician [phone] PUSHPA KRAFT Attending Clinician Unavailable James De Jesus DO Attending Clinician [phone] Pushpa Kraft MD Attending Clinician [phone] NIRMAL ACEVES Attending Clinician UnavailNirmal Ruiz MD Attending Clinician [phone] AURORA SPENCER Admitting Clinician Unavailable PUSHPA KRAFT Admitting Clinician Unavailable Pushpa Kraft MD Admitting Clinician [phone] NIRMAL ACEVES Admitting Clinician Unavailsherita cordero Payers Payer Name Policy Type Policy Number Effective Date Expirati on Date Source [employer] [id number] 2023 00:00:00 Problems Condition Name Condition Details Condition Category Status Onset Date Resolution Date Last Treatment Date Treating Clinician Comments Source Abnormal EKG Abnormal EKG Disease Active 07-06 00:00: 00 [facility] RUQ abdominal pain RUQ abdominal pain Disease Active 07-05 00:00: 00 [facility] Biliary colic Biliary colic Disease Active 07-05 00:00: 00 [facility] Sinus bradycardi a Sinus bradycardi a Disease Active 07-05 00:00: 00 [facility] Hepatomega ly Hepatomega ly Disease Active 2016-11 00:00: 00 Overview: Formattin g of this note might be different from the original. Tayo Veras is a 32 year old female with Alcohol abuse, with CT findings consisten t with hepatomeg dharmesh during hospital stay in 07/2017 [facility] Recurrent pyelonephr itis Recurrent pyelonephr itis Disease Active 07-19 00:00: 00 [facility] Alcohol abuse Alcohol abuse Disease Active [facility] Allergies, Adverse Reactions, Alerts Allergy Name Allergy Type Status Severity Reaction(s) Onset Date Inactive Date Treating Clinician Comments Source Tramadol Propensi ty to adverse reaction s to drug Active Hallucinatio ns 07-25 00:00: 00 [facility] TRAMADOL DRUG INGREDI Active Low Anxiety 07-25 00:00: 00 [facility] Social History Social Habit Start Date Stop Date Quantity Comments Source History of tobacco use Cigarette Smoker [facility] Alcohol intake 2023-07-20 00:00:00 2023-07-20 00:00:00 Ex-drinker (finding) [facility] History of Social function 2023-07-20 00:00:00 2023-07-20 00:00:00 [facility] Cigarettes smoked current (pack per day) - Reported 2023-07-05 00:00:00 2023-07-05 00:00:00 [facility] Cigarette pack-years 2023-07-05 00:00:00 2023-07-05 00:00:00 [facility] Tobacco use and exposure 2023-07-05 00:00:00 2023-07-05 00:00:00 Smokeless tobacco non-user [facility] Tobacco Comment 2023-07-05 00:00:00 2023-07-05 00:00:00 half packet a day, vapes. [facility] Exposure to SARS-CoV-2 (event) 2023-01-26 00:00:00 2023-02-05 08:12:00 Not sure [facility] Alcohol Comment 2017-07-26 00:00:00 2017-07-26 00:00:00 6 pack every other day [facility] Sex Assigned At 1985 00:00:00 1985 00:00:00 [facility] Smoking Status Start Date Stop Date Source Ex-smoker 2023-07-05 00:00:00 2023-07-05 00:00:00 [facility] Medications Ordered Medication Name Filled Medication Name Start Date Stop Date Current Medication? Ordering Clinician Indication Dosage Frequency Signature (SIG) Comments Components Source ondansetron 4 mg disintegrat ing tablet 11-26 00:00: 00 11-26 00:00 :00 No [id number] 4mg Take 1 tablet by mouth every 8 (eight) hours as needed for Nausea and Vomiting (N/V) for up to 5 days. [facility] benzonatate 100 mg capsule 11-26 00:00: 00 11-26 00:00 :00 No [id number] 100mg Take 1 capsule by mouth 3 (three) times daily as needed for Cough. [facility] albuterol 90 mcg/actuati on inhaler 11-26 00:00: 00 11-26 00:00 :00 No [id number] 2{puff} Inhale 2 Puffs every 4 (four) hours as needed for Wheezing or Shortness of Breath. [facility] nirmatrelvi r-ritonavir 300 mg (150 mg x 2)-100 mg tablet 11-26 00:00: 00 11-26 00:00 :00 No [id number] 3{tbl} Take 3 tablets by mouth in the morning and 3 tablets in the evening. [facility] ketorolac (TORADOL) injection 30 mg 07-20 14:30: 00 07-20 13:55 :00 No 30mg 30 mg, Slow IV Push, ONCE, 1 dose, On Wed07/20/23 at 0930, JUANITA [facility] iopamidol (ISOVUE 370-500 mL) injection 75 mL 07-20 14:15: 00 07-20 14:15 :00 No [id number] 75mL 75 mL, Intravenou s, ONCE, 1 dose, On Wed07/20/23 at 0915, Routine [facility] maalox:diph enhydrAMINE :lidocaine 2 % viscous 1:1:1 (FIRST-MOUT [facility]) oral suspension 15 mL 07-20 14:00: 00 07-20 13:51 :00 No 15mL 15 mL, Oral, ONCE, 1 dose, On Wed07/20/23 at 0900, JUANITA [facility] FENTanyl PF (SUBLIMAZE (PF)) injection 50 mcg 07-20 11:30: 00 07-20 10:46 :00 No 50ug 50 mcg, Slow IV Push, ONCE, 1 dose, On Wed07/20/23 at 0630, Routine [facility] iopamidol (ISOVUE 370-500 mL) injection 100 mL 07-20 11:30: 00 07-20 11:30 :00 No [id number] 100mL 100 mL, Intravenou s, ONCE, 1 dose, On Wed07/20/23 at 0630, Routine [facility] NaCl 0.9% (NS) bolus infusion 1,000 mL 07-20 11:00: 00 07-20 12:06 :00 No 1000mL at 999 mL/hr, 1,000 mL, IV Infusion, ONCE, 1 dose, On Wed07/20/23 at 0600, STAT [facility] famotidine (PEPCID) 40 mg tablet 07-07 11:34: 06 Yes 40mg Take 1 tablet by mouth in the morning and 1 tablet in the evening. [facility] phenoL (SORE THROAT (PHENOL)) 1.4 % spray bottle 1 [place] 07-07 09:21: 46 Yes 1{spray } 1 [place], Oral, PRN, Starting on Wed07/07/23 at 0421, Until Discontinu ed, Routine, Sore throat [facility] benzocaine (HURRICAINE ONE) 20 % mucosal spray 1 [place] 07-07 04:45: 00 07-07 05:15 :00 No 1{spray } 1 [place], Oral, ONCE, 1 dose, On Wed07/06/23 at 2345, Routine [facility] HYDROcodone -acetaminop hen 5-325 mg tablet 07-07 00:00: 00 07-13 04:59 :00 No [id number] 1{tbl} Take 1 tablet by mouth every 6 (six) hours as needed for Pain (scale 4-6) for up to 5 days. Indication s: acute pain [facility] ketorolac (TORADOL) injection 15 mg 07-06 23:00: 00 07-09 22:59 :00 No 15mg 15 mg, Slow IV Push, Q6H, 12 doses, First dose on Wed07/06/23 at 1800, Last dose on Wed07/09/23 at 1200, Routine [facility] pantoprazol e (PROTONIX) injection 40 mg 07-06 21:30: 00 07-06 20:46 :00 No 40mg 40 mg, Slow IV Push, ONCE, 1 dose, On Wed07/06/23 at 1630 [facility] proMETHazin e (PHENERGAN) 12.5 mg in NaCl 0.9% (NS) 50 mL IV piggyback 07-06 20:21: 45 Yes 12.5mg 12.5 mg, IV Piggyback, Q4HPRN, Starting on Wed07/06/23 at 1521, Until Discontinu ed, Routine, N/V unresponsi ve to oral antiemetic s [facility] HYDROcodone -acetaminop hen (NORCO 5) 5-325 mg tablet 1 tablet 07-06 18:00: 00 07-06 18:32 :00 No 1{tbl} 1 tablet, Oral, ONCE, 1 dose, On Wed07/06/23 at 1300, Routine, PACU [facility] ondansetron (ZOFRAN (PF)) injection 4 mg 07-06 17:47: 57 07-06 18:13 :00 No 4mg 4 mg, Slow IV Push, PRN, 1 dose, Starting on Wed07/06/23 at 1247, Until Wed07/06/23 at 1313, Routine, Nausea and Vomiting (N/V), PACU [facility] FENTanyl PF (SUBLIMAZE (PF)) injection 25 mcg 07-06 17:47: 57 07-06 19:33 :10 No 25ug 25 mcg, Slow IV Push, Q5MIN PRN, 4 doses, Starting on Wed07/06/23 at 1247, Until Wed07/06/23 at 1433, Routine, Pain (scale 4-6), PACU [facility] bupivacaine (preserv free) (SENSORCAIN E MPF) 0.25 % (2.5 mg/mL) injection 07-06 16:42: 00 07-06 17:55 :05 No PRN, Starting on Wed07/06/23 at 1142, Until Wed07/06/23 at 1255, Routine, Intra-op [facility] sodium chloride 0.9 % irrigation solution 07-06 16:39: 00 07-06 17:55 :05 No PRN, Starting on Wed07/06/23 at 1139, Until Wed07/06/23 at 1255, Intra-op [facility] lactated ringers IV infusion 1,000 mL 07-06 14:15: 00 07-06 14:08 :00 No 1000mL at 42 mL/hr, 1,000 mL, IV Infusion, ONCE, 1 dose, On Wed07/06/23 at 0915, Routine, DSU Pre-op [facility] sulfur hexafluorid e microsphr (LUMASON) injection 5 mL 07-06 13:45: 00 07-06 13:45 :00 No [id number] 5mL 5 mL, Intravenou s, ONCE, 1 dose, On Wed07/06/23 at 0845, Routine
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 Restricted medication : SHAY SELLERS [facility] famotidine (PEPCID AC) tablet 40 mg 07-06 01:00: 00 Yes 40mg 40 mg, Oral, BID, First dose on Wed07/05/23 at 2000, Until Discontinu ed, Routine [facility] enoxaparin (LOVENOX) injection 40 mg 07-05 22:00: 00 Yes 40mg 40 mg, Subcutaneo us, DAILY, First dose on Wed07/05/23 at 1700, Until Discontinu ed, Routine [facility] NaCl 0.9% (NS) IV infusion 1,000 mL 07-05 19:45: 00 07-06 23:18 :58 No 1000mL at 125 mL/hr, IV Infusion, CONTINUOUS , Starting on Wed07/05/23 at 1445, Until Wed07/06/23 at 1818, Routine [facility] ondansetron (ZOFRAN (PF)) injection 4 mg 07-05 19:42: 11 Yes 4mg 4 mg, Slow IV Push, Q6HPRN, Starting on Wed07/05/23 at 1442, Until Discontinu ed, Routine, Nausea and Vomiting (N/V) [facility] morpHINE (2 mg/mL) injection 4 mg 07-05 19:42: 09 07-06 19:41 :09 No 4mg 4 mg, Slow IV Push, Q4HPRN, Starting on Wed07/05/23 at 1442, Until Wed07/06/23 at 1441, Routine, Pain (scale 7-10) [facility] HYDROcodone -acetaminop hen (NORCO 5) 5-325 mg tablet 1 tablet 07-05 19:42: 06 07-07 19:41 :06 No 1{tbl} 1 tablet, Oral, Q6HPRN, Starting on Wed07/05/23 at 1442, Until Wed07/07/23 at 1441, Routine, Pain (scale 4-6) [facility] acetaminoph en (TYLENOL) tablet 650 mg 07-05 19:41: 59 Yes 650mg 650 mg, Oral, Q6HPRN, Starting on Wed07/05/23 at 1441, Until Discontinu ed, Routine, Pain (scale 1-3), Temp > 38 C [facility] ondansetron (ZOFRAN (PF)) injection 4 mg 07-05 14:30: 00 07-05 13:33 :00 No 4mg 4 mg, Slow IV Push, ONCE, 1 dose, On Wed07/05/23 at 0930, Routine [facility] morpHINE (4 mg/mL) injection 4 mg 07-05 13:22: 44 07-05 19:43 :31 No 4mg 4 mg, Slow IV Push, Q4HPRN, Starting on Wed07/05/23 at 0822, Until Wed07/05/23 at 1443, Routine, Pain (scale 7-10) [facility] dicyclomine 20 mg tablet 07-05 00:00: 00 Yes [id number] 20mg Take 1 tablet by mouth 4 (four) times daily. [facility] NaCl 0.9% (NS) bolus infusion 1,000 mL 02-05 14:15: 00 02-05 15:49 :00 No 1000mL at 999 mL/hr, 1,000 mL, IV Infusion, ONCE, 1 dose, On Wed02/05/23 at 0915, JUANITA [facility] maalox:diph enhydrAMINE :lidocaine 2 % viscous 1:1:1 (FIRST-MOUT [facility]) oral suspension 15 mL 02-05 14:00: 00 02-05 13:56 :00 No 15mL 15 mL, Oral, ONCE, 1 dose, On Wed02/05/23 at 0900, [facility] ondansetron (ZOFRAN (PF)) injection 8 mg 02-05 13:30: 00 02-05 13:30 :00 No 8mg 8 mg, Slow IV Push, ONCE, 1 dose, On Wed02/05/23 at 0830, [facility] famotidine (PEPCID (PF)) injection 20 mg 02-05 13:30: 00 02-05 13:32 :00 No 20mg 20 mg, Slow IV Push, ONCE, 1 dose, On Wed02/05/23 at 0830, [facility] ondansetron 4 mg tablet 02-05 00:00: 00 Yes [id number] 1-2 tablets every 8 hours as needed for nausea [facility] sucralfate 1 gram tablet 02-05 00:00: 00 Yes [id number] 1g Take 1 tablet by mouth before meals and at bedtime. [facility] acetaminoph en-codeine 300-30 mg tablet 01-03 00:00: 02-05 00:00 :00 No [id number] 1{tbl} Take 1 tablet by mouth every 4 (four) hours as needed for Pain (scale 4-6) (Cough). [facility] ibuprofen 600 mg tablet 01-03 00:00: 02-05 00:00 :00 No [id number] 600mg Take 1 tablet by mouth 3 (three) times daily with meals. [facility] levoFLOXaci n 750 mg tablet 04-06 00:00: 00 02-05 00:00 :00 No 750mg Take 1 tablet by mouth daily. [facility] acetaminoph en-codeine (TYLENOL-CO DEINE #3) 300-30 mg tablet 04-06 00:00: 02-05 00:00 :00 No 1{tbl} Take 1 tablet by mouth every 8 (eight) hours as needed for Pain (scale 4-6). [facility] proMETHazin e 25 mg tablet 04-06 00:00: 00 02-05 00:00 :00 No 25mg Take 1 tablet by mouth every 6 (six) hours as needed for Nausea and Vomiting (N/V). [facility] HYDROcodone -acetaminop hen 5-325 mg tablet 1-29 00:00: 00 02-05 00:00 :00 No 1{tbl} Take 1 tablet by mouth every 6 (six) hours as needed for Pain (scale 7-10). [facility] Lactobacill us acidophilus (PROBIOTIC) 10 billion cell capsule 07-27 00:00: 00 02-05 00:00 :00 No 1{capsu le} Take 1 capsule by mouth daily. Take at least 2 hours after morning dose of antibiotic s before taking probiotic [facility] Vital Signs Vital Name Observation Time Observation Value Comments S ource Systolic blood pressure 2023-11-26 23:14:00 103 mm[Hg[facility] Diastolic blood pressure 2023-11-26 23:14:00 71 mm[Hg] [facility] Heart rate 2023-11-26 23:14:00 75 /min [facility] Body temperature 2023-11-26 23:14:00 37.61 Marichuy [facility] Respiratory rate 2023-11-26 23:14:00 16 /min [facility] Body height 2023-11-26 23:14:00 149.9 cm [facility] Body weight 2023-11-26 23:14:00 74.844 kg [facility] BMI 2023-11-26 23:14:00 33.33 kg/m2 [facility] Oxygen saturation in Arterial blood by Pulse oximetry 2023-11-26 23:14:00 100 /min [facility] Systolic blood pressure 2023-07-20 14:00:00 107 mm[Hg] [facility] Diastolic blood pressure 2023-07-20 14:00:00 54 mm[Hg] [facility] Heart rate 2023-07-20 14:00:00 52 /min [facility] Respiratory rate 2023-07-20 14:00:00 17 /min [facility] Oxygen saturation in Arterial blood by Pulse oximetry 2023-07-20 14:00:00 97 /min [facility] Body temperature 2023-07-20 10:05:00 36.11 Marichuy [facility] Body height 2023-07-20 10:05:00 149.9 cm [facility] Body weight 2023-07-20 10:05:00 65.772 kg [facility] BMI 2023-07-20 10:05:00 29.29 kg/m2 [facility] Systolic blood pressure 2023-07-07 12:34:00 109 mm[Hg] [facility] Diastolic blood pressure 2023-07-07 12:34:00 53 mm[Hg] [facility] Heart rate 2023-07-07 12:34:00 51 /min [facility] Body temperature 2023-07-07 12:34:00 35.94 Marichuy [facility] Respiratory rate 2023-07-07 12:34:00 19 /min [facility] Oxygen saturation in Arterial blood by Pulse oximetry 2023-07-07 12:34:00 98 /min [facility] Body weight 2023-07-07 08:27:00 61.961 kg [facility] BMI 2023-07-07 08:27:00 27.59 kg/m2 [facility] Body height 2023-07-05 18:35:00 149.9 cm [facility] Systolic blood pressure 2023-07-06 18:50:00 94 mm[Hg] [facility] Diastolic blood pressure 2023-07-06 18:50:00 57 mm[Hg] [facility] Heart rate 2023-07-06 18:50:00 59 /min [facility] Respiratory rate 2023-07-06 18:50:00 17 /min [facility] Oxygen saturation in Arterial blood by Pulse oximetry 2023-07-06 18:50:00 96 /min [facility] Body temperature 2023-07-06 17:52:00 36.06 Marichuy [facility] Body weight 2023-07-06 09:53:00 60.963 kg [facility] BMI 2023-07-06 09:53:00 27.59 kg/m2 [facility] Body height 2023-07-05 18:35:00 149.9 cm [facility] Systolic blood pressure 2023-02-05 15:49:00 101 mm[Hg] [facility] Diastolic blood pressure 2023-02-05 15:49:00 57 mm[Hg] [facility] Heart rate 2023-02-05 15:49:00 56 /min [facility] Respiratory rate 2023-02-05 15:49:00 14 /min [facility] Oxygen saturation in Arterial blood by Pulse oximetry 2023-02-05 15:49:00 99 /min [facility] Body temperature 2023-02-05 13:13:00 36.44 [facility] Body height 2023-02-05 13:13:00 149.9 cm [facility] Body weight 2023-02-05 13:13:00 65.772 kg [facility] BMI 2023-02-05 13:13:00 29.29 kg/m2 [facility] Procedures Procedure Date / Time Performed Performing Clinician Source ASSIGNMENT OF BENEFITS 2023-11-26 23:24:04 Docto r Unassigned, Halfway [facility] RAPID INFLUENZA A/B 2023-11-26 23:19:00 Nehal Akbar [facility] COVID-19 (ID NOW RAPID TESTING) 2023-11-26 23:19:00 Nehal Akbar [facility] CONSENT/REFUSAL FOR DIAGNOSIS AND TREATMENT 2023-11-26 22:49:10 Doctor Unassigned, Halfway [facility] CT CHEST PULMONARY ANGIOGRAM 2023-07-20 13:19:03 Aurora Spencer [facility] TROPONIN I 2023-07-20 12:06:00 Alton Calderon [facility] EKG-12 LEAD 2023-07-20 12:02:47 Alton Calderon [facility] CT ABDOMEN PELVIS W CONTRAST 2023-07-20 10:36:59 Alton Calderon [facility] LIPASE 2023-07-20 10:11:00 Alton Calderon [facility] TROPONIN I 2023-07-20 10:11:00 Alton Calderon [facility] COMP. METABOLIC PANEL ([id number]) 2023-07-20 10:11:00 Alton Calderon [facility] CBC WITH DIFF 2023-07-20 10:11:00 Alton Calderon [facility] BASIC METABOLIC PANEL (NA, K, CL, CO2, GLUCOSE, BUN, CREATININE, CA) 2023-07-07 09:12:00 Abeba [facility] CBC WITH DIFF 2023-07-07 09:12:00 AbebaLaci levine [facility] BASIC METABOLIC PANEL (NA, K, CL, CO2, GLUCOSE, BUN, CREATININE, CA) 2023-07-07 09:12:00 Abeba [facility] CBC WITH DIFF 2023-07-07 09:12:00 Laci Us [facility] LAPAROSCOPIC CHOLECYSTECTOMY 2023-07-06 15:42:00 Britt [facility] UMBILICAL HERNIORRHAPHY 2023-07-06 15:42:00 Clover Mcmahon [facility] LAPAROSCOPIC CHOLECYSTECTOMY 2023-07-06 15:42:00 Britt [facility] UMBILICAL HERNIORRHAPHY 2023-07-06 15:42:00 Clover Mcmahon [facility] TRANSTHORACIC ECHO (TTE) COMPLETE W/ CONTRAST 2023-07-06 13:34:15 Abena [facility] TRANSTHORACIC ECHO (TTE) COMPLETE W/ CONTRAST 2023-07-06 13:34:15 Pushpa Kraft [facility] MAGNESIUM 2023-07-06 09:52:00 Pushpa Kraft [facility] COMP. METABOLIC PANEL ([id number]) 2023-07-06 09:52:00 [facility] 2023-07-06 09:52:00 Pushpa Kraft [facility] MAGNESIUM 2023-07-06 09:52:00 Pushpa Kraft [facility] COMP. METABOLIC PANEL ([id number]) 2023-07-06 09:52:00 Abena [facility] CBC WITH DIFF 2023-07-06 09:52:00 Pushpa Kraft [facility] GALL BLADDER 2023-07-05 14:00:[address] [facility] GALL BLADDER 2023-07-05 14:00:00 James De Jesus [facility] POCT TEST 2023-07-05 13:31:00 Chasity De Jesus [facility] POCT TEST 2023-07-05 13:31:00 Chasity De Jesus [facility] LIPASE 2023-07-05 13:28:00 [facility] THYROID STIMULATING HORMONE 2023-07-05 13:28:00 [facility] COMP. METABOLIC PANEL ([id number]) 2023-07-05 13:28:00 James De Jesus [facility] CBC WITH DIFF 2023-07-05 13:28:00 James De Jesus [facility] URINALYSIS 2023-07-05 13:28:00 [facility] LIPASE 2023-07-05 13:28:00 [facility] THYROID STIMULATING HORMONE 2023-07-05 13:28:00 Fred [facility] COMP. METABOLIC PANEL ([id number]) 2023-07-05 13:28:00 James De Jesus [facility] CBC WITH DIFF 2023-07-05 13:28:00 [facility] 2023-07-05 13:28:00 James De Jesus [facility] CONSENT/REFUSAL FOR DIAGNOSIS AND TREATMENT 2023-07-05 12:44:38 Doctor Unassigned, Halfway [facility] CONSENT/REFUSAL FOR DIAGNOSIS AND TREATMENT 2023-07-05 12:44:38 Doctor Unassigned, Halfway [facility] EKG-12 LEAD 2023-02-05 15:29:55 Nirmal Aceves [facility] LIPASE 2023-02-05 13:24:00 Nirmal Aceves [facility] TEST, SERUM 2023-02-05 13:24:00 Tiago Aceves [facility] TROPONIN I 2023-02-05 13:24:00 Nirmal Aceves [facility] COMP. METABOLIC PANEL ([id number]) 2023-02-05 13:24:00 Nirmal Aceves [facility] CBC WITH DIFF 2023-02-05 13:24:00 [facility]REFUS[facility] FOR [facility]AG[facility]IS AND TREATMENT 2023-02-05 13:07:07 Doctor Unassigned, Halfway [facility] Encounters Start Date/Time End Date/Time Encounter Type Admission Type Attending [facility] Care Facility Care Department Encounter ID Source 2023-11-26 17:17:00 2023-11-26 18:30:00 Emergency X LEELEEMATY NEHAL [facility] ERT [id number] [facility] 2023-11-26 17:17:00 2023-11-26 18:30:00 Emergency Nehal Akbar Beth [facility] [id number] [id number] [facility] 2023-07-28 13:15:00 2023-07-28 13:15:00 Outpatient SHERICE FUENTES [facility] [id number] [facility] 2023-07-20 04:58:00 2023-07-20 09:33:00 Emergency X AURORA SPENCER [facility] ERT [id number] [facility] 2023-07-20 04:58:00 2023-07-20 09:33:00 Emergency Alton Calderon Donnell [facility] [id number] [id number] [facility] 2023-07-05 07:53:00 2023-07-07 11:30:00 Outpatient X [facility] [id number] [facility] 2023-07-05 07:53:00 2023-07-07 11:30:00 Emergency James De Jesus [facility] [id number] [id number] [facility] 2023-07-06 11:25:00 2023-07-06 13:54:00 Surgery Sherice Mcmahon [facility] [id number] [id number] [id number] [id number] [facility] 2023-02-22 10:41:58 2023-02-22 10:41:58 Outpatient [facility] [id number] Ankit Son Beka 2023-02-11 15:43:26 2023-02-11 15:43:26 Outpatient [facility] [id number] Ankit Son Beka 2023-02-05 08:10:00 2023-02-05 10:52:00 Emergency X NIRMAL ACEVES [facility] ERT [id number] [facility] 2023-02-05 08:10:00 2023-02-05 10:52:00 Emergency Nirmal Aceves [facility] [id number] [facility] Results Test Description Test Time Test Comments Results Result Co mments Source [facility] WITH [id number] 11:29:39* Test Item Value Reference Range Interpretation Comme nts WBC (test code = 6690-2) 10.73 See_Comment [Automated messa ge] The system which generated this result transmitted reference range: 4.30 - 11.10 10*3/?L. The reference range was not used to interpret this result as normal/abnormal. RBC (test code = 789-8) 3.98 See_Comment [Automated messa ge] The system which generated this result transmitted reference range: 3.93 - 5.25 10*6/?L. The reference range was not used to interpret this result as normal/abnormal. HGB (test code = 718-7) 11.3 g/dL 11.6-15.0 L HCT (test code = 4544-3) 34.4 % 35.7-45.2 L MCV (test code = 787-2) 86.4 fL 80.6-95.5 MCH (test code = 785-6) 28.4 pg 25.9-32.8 MCHC (test code = 786-4) 32.8 g/dL 31.6-35.1 RDW-SD (test code = 35697-5) 47.2 fL 39.0-49.9 RDW-CV (test code = 788-0) 14.8 % 12.0-15.5 PLT (test code = 777-3) 368 See_Comment H [Automated messa ge] The system which generated this result transmitted reference range: 166 - 358 10*3/?L. The reference range was not used to interpret this result as normal/abnormal. MPV (test code = 92420-5) 10.5 fL 9.5-12.9 NRBC/100 WBC (test code = 4316637997) 0.0 See_Comment [Automated me ssage] The system which generated this result transmitted reference range: 0.0 - 10.0 /100 WBCs. The reference range was not used to interpret this result as normal/abnormal. NRBC x10^3 (test code = 0550520239) See_Comment [Automated messa ge] The system which generated this result transmitted reference range: 10*3/?L. The reference range was not used to interpret this result as normal/abnormal. GRAN MAT (NEUT) % (test code = 770-8) 52.8 % IMM GRAN % (test code = 8227546975) 0.30 % LYMPH % (test code = 736-9) 40.0 % MONO % (test code = 5905-5) 4.9 % EOS % (test code = 713-8) 1.3 % BASO % (test code = 706-2) 0.7 % GRAN MAT x10^3(ANC) (test code = 7650009709) 5.66 10*3/uL 1.88-7.09 IMM GRAN x10^3 (test code = 7402366582) 0.03 10*3/uL 0.00-0.06 LYMPH x10^3 (test code = 731-0) 4.29 10*3/uL 1.32-3.29 H MONO x10^3 (test code = 742-7) 0.53 10*3/uL 0.33-0.92 EOS x10^3 (test code = 711-2) 0.14 10*3/uL 0.03-0.39 BASO x10^3 (test code = 704-7) 0.08 10*3/uL 0.01-0.07 H Lab Interpretation (test code = 04707-5) [facility] [id number] 11:00:29* Test Item Value Reference Range Interpretation Comme nts TROPONIN I (test code = 8336004931) 0.001 ng/mL <=0.034 CHINO (test code = CHINO) Reference (Normal) Range (defined by the 99th percentile reference limit): <= 0.034 ng/mL Note: Cardiac troponin begins to rise 3-4 hours after the onset of ischemia. Repeat in 4-6 hours if the sample was drawn within 3-4 hours of the onset of the symptom and found normal. Diagnosis of myocardial injury is made with acute changes in cTn concentrations with at least one serial sample above the 99th percentile upper reference limit (URL), taken together with the patient's clinical presentation. Biotin has been reported to cause a negative bias, interpret results relative to patient's use of biotin. Lab Interpretation (test code = 02244-5) Normal [facility]. METABOLIC PANEL ([id number])2023-07-20 10:48:47* Test Item Value Reference Range Interpretation Comme nts NA (test code = 0034736293) 137 mmol/L 135-145 K (test code = 9344193328) 3.5 mmol/L 3.5-5.0 CL (test code = 9198282226) 107 mmol/L 98-108 CO2 TOTAL (test code = 2773813703) 21 mmol/L 23-31 L AGAP (test code = 8847475885) 9 2-16 BUN (test code = 0370357109) 13 mg/dL 7-23 GLUCOSE (test code = 0864937087) 109 mg/dL 70-110 CREATININE (test code = 0682951149) 0.70 mg/dL 0.50-1.04 TOTAL BILI (test code = 8286133892) 0.1 mg/dL 0.1-1.1 CALCIUM (test code = 1103719509) 8.8 mg/dL 8.6-10.6 T PROTEIN (test code = 6407213529) 7.1 g/dL 6.3-8.2 ALBUMIN (test code = 2148379796) 4.1 g/dL 3.5-5.0 ALK PHOS (test code = 6419190042) 58 U/L 34-122 ALTv (test code = 1742-6) 20 U/L 5-35 AST(SGOT) (test code = 3355426109) 27 U/L 13-40 eGFR (test code = 6095234023) 92.7 mL/min/1.73m2 CHINO (test code = CHINO) Association of Glomerular Filtration Rate (GFR) and Staging of Kidney Disease* + --+ --+ ------+| GFR (mL/min/1.73 m2) ?| With Kidney Damage ?| ?Without Kidney Damage+ --------+ --------+ +| ?>90 ?| ?Stage one ?| ? Normal ?+ ---+ ---+ -------+| ?60-89 ?| ?Stage two ?| ? Decreased GFR ? + --+ --+ ------+| ?30-59 ?| ?Stage three ?| ? Stage three ? + --+ --+ ------+| ?15-29 ?| ?Stage four ? | ? Stage four ?+ ---+ ---+ -------+| ?<15 (or dialysis) ? ?| ?Stage five ? | ? Stage five ?+ ---+ ---+ -------+ *Each stage assumes the associated GFR level has been in effect for at least three months. ?Stages 1 to 5, with or without kidney disease, indicate chronic kidney disease. Notes: Determination of stages one and two (with eGFR >59mL/min/1.73 m2) requires estimation of kidney damage for at least three months as defined by structural or functional abnormalities of the kidney, manifested by either:Pathological abnormalities or Markers of kidney damage (including abnormalities in the composition of the blood or urine or abnormalities in imaging tests). Lab Interpretation (test code = 81819-1) [facility]48:31* Test Item Value Reference Range Interpretation Comme nts LIPASE (test code = 4706861531) 79 U/L 0-220 Lab Interpretation (test cod e = 23776-8) [facility] MET[facility]OLIC PANEL ([id number])2023-07-06 11:53:10* Test Item Value Reference Range Interpretation Comme nts NA (test code = 2003080437) 139 mmol/L 135-145 K (test code = 5687938123) 4.1 mmol/L 3.5-5.0 CL (test code = 1524255055) 112 mmol/L 98-108 H CO2 TOTAL (test code = 7615356399) 22 mmol/L 23-31 L AGAP (test code = 5542683780) 5 2-16 BUN (test code = 0671621918) 8 mg/dL 7-23 GLUCOSE (test code = 6019774800) 85 mg/dL 70-110 CREATININE (test code = 3790328527) 0.67 mg/dL 0.50-1.04 TOTAL BILI (test code = 5717926509) 0.1-1.1 L CALCIUM (test code = 9206545291) 7.8 mg/dL 8.6-10.6 L T PROTEIN (test code = 0873866298) 5.3 g/dL 6.3-8.2 L ALBUMIN (test code = 3976284768) 3.1 g/dL 3.5-5.0 L ALK PHOS (test code = 8169550775) 48 U/L 34-122 ALTv (test code = 1742-6) 14 U/L 5-35 AST(SGOT) (test code = 1601012003) 27 U/L 13-40 eGFR (test code = 9879867921) 97.5 mL/min/1.73m2 CHINO (test code = CHINO) Association of Glomerular Filtration Rate (GFR) and Staging of Kidney Disease* + --+ --+ ------+| GFR (mL/min/1.73 m2) ?| With Kidney Damage ?| ?Without Kidney Damage+ --------+ --------+ +| ?>90 ?| ?Stage one ?| ? Normal ?+ ---+ ---+ -------+| ?60-89 ?| ?Stage two ?| ? Decreased GFR ? + --+ --+ ------+| ?30-59 ?| ?Stage three ?| ? Stage three ? + --+ --+ ------+| ?15-29 ?| ?Stage four ? | ? Stage four ?+ ---+ ---+ -------+| ?<15 (or dialysis) ? ?| ?Stage five ? | ? Stage five ?+ ---+ ---+ -------+ *Each stage assumes the associated GFR level has been in effect for at least three months. ?Stages 1 to 5, with or without kidney disease, indicate chronic kidney disease. Notes: Determination of stages one and two (with eGFR >59mL/min/1.73 m2) requires estimation of kidney damage for at least three months as defined by structural or functional abnormalities of the kidney, manifested by either:Pathological abnormalities or Markers of kidney damage (including abnormalities in the composition of the blood or urine or abnormalities in imaging tests). Lab Interpretation (test code = 33141-8) Abnormal [facility]. METABOLIC PANEL (35213)2023-07-06 11:53:10* Test Item Value Reference Range Interpretation Comme nts NA (test code = 8090547018) 139 mmol/L 135-145 K (test code = 1127413424) 4.1 mmol/L 3.5-5.0 CL (test code = 2098491978) 112 mmol/L 98-108 H CO2 TOTAL (test code = 9560127725) 22 mmol/L 23-31 L AGAP (test code = 3832905115) 5 2-16 BUN (test code = 4056818717) 8 mg/dL 7-23 GLUCOSE (test code = 1813897750) 85 mg/dL 70-110 CREATININE (test code = 0907474611) 0.67 mg/dL 0.50-1.04 TOTAL BILI (test code = 5201633087) 0.1-1.1 L CALCIUM (test code = 2600825020) 7.8 mg/dL 8.6-10.6 L T PROTEIN (test code = 2491932200) 5.3 g/dL 6.3-8.2 L ALBUMIN (test code = 2846009287) 3.1 g/dL 3.5-5.0 L ALK PHOS (test code = 7744521829) 48 U/L 34-122 ALTv (test code = 1742-6) 14 U/L 5-35 AST(SGOT) (test code = 6400006741) 27 U/L 13-40 eGFR (test code = 7447926312) 97.5 mL/min/1.73m2 CHINO (test code = CHINO) Association of Glomerular Filtration Rate (GFR) and Staging of Kidney Disease* + --+ --+ ------+| GFR (mL/min/1.73 m2) ?| With Kidney Damage ?| ?Without Kidney Damage+ --------+ --------+ +| ?>90 ?| ?Stage one ?| ? Normal ?+ ---+ ---+ -------+| ?60-89 ?| ?Stage two ?| ? Decreased GFR ? + --+ --+ ------+| ?30-59 ?| ?Stage three ?| ? Stage three ? + --+ --+ ------+| ?15-29 ?| ?Stage four ? | ? Stage four ?+ ---+ ---+ -------+| ?<15 (or dialysis) ? ?| ?Stage five ? | ? Stage five ?+ ---+ ---+ -------+ *Each stage assumes the associated GFR level has been in effect for at least three months. ?Stages 1 to 5, with or without kidney disease, indicate chronic kidney disease. Notes: Determination of stages one and two (with eGFR >59mL/min/1.73 m2) requires estimation of kidney damage for at least three months as defined by structural or functional abnormalities of the kidney, manifested by either:Pathological abnormalities or Markers of kidney damage (including abnormalities in the composition of the blood or urine or abnormalities in imaging tests). Lab Interpretation (test code = 39142-8) [facility] 11:52:29* Test Item Value Reference Range Interpretation Comme nts MAGNESIUM (test code = 8911064624) 1.9 mg/dL 1.7-2.4 Lab Interpretation (test cod e = 00755-3) [facility]:52:29* Test Item Value Reference Range Interpretation Comme nts MAGNESIUM (test code = 5528065607) 1.9 mg/dL 1.7-2.4 Lab Interpretation (test cod e = 46328-0) [facility] with [id number] 11:13:08* Test Item Value Reference Range Interpretation Comme nts WBC (test code = 6690-2) 8.01 See_Comment [Automated [employer]] The system which generated this result transmitted reference range: 4.30 - 11.10 10*3/?L. The reference range was not used to interpret this result as normal/abnormal. RBC (test code = 789-8) 3.50 See_Comment L [Automated [employer]] The system which generated this result transmitted reference range: 3.93 - 5.25 10*6/?L. The reference range was not used to interpret this result as normal/abnormal. HGB (test code = 718-7) 9.9 g/dL 11.6-15.0 L HCT (test code = 4544-3) 30.2 % 35.7-45.2 L MCV (test code = 787-2) 86.3 fL 80.6-95.5 MCH (test code = 785-6) 28.3 pg 25.9-32.8 MCHC (test code = 786-4) 32.8 g/dL 31.6-35.1 RDW-SD (test code = 93954-6) 48.2 fL 39.0-49.9 RDW-CV (test code = 788-0) 15.4 % 12.0-15.5 PLT (test code = 777-3) 236 See_Comment [Automated messa ge] The system which generated this result transmitted reference range: 166 - 358 10*3/?L. The reference range was not used to interpret this result as normal/abnormal. MPV (test code = 14686-7) 10.7 fL 9.5-12.9 NRBC/100 WBC (test code = 1218350842) 0.0 See_Comment [Automated [employer] ssage] The system which generated this result transmitted reference range: 0.0 - 10.0 /100 WBCs. The reference range was not used to interpret this result as normal/abnormal. NRBC x10^3 (test code = 1955198829) See_Comment [Automated messa ge] The system which generated this result transmitted reference range: 10*3/?L. The reference range was not used to interpret this result as normal/abnormal. GRAN MAT (NEUT) % (test code = 770-8) 45.3 % IMM GRAN % (test code = 0801826752) 0.40 % LYMPH % (test code = 736-9) 46.9 % MONO % (test code = 5905-5) 5.2 % EOS % (test code = 713-8) 1.6 % BASO % (test code = 706-2) 0.6 % GRAN MAT x10^3(ANC) (test code = 2293874642) 3.62 10*3/uL 1.88-7.09 IMM GRAN x10^3 (test code = 3069278264) 0.03 10*3/uL 0.00-0.06 LYMPH x10^3 (test code = 731-0) 3.76 10*3/uL 1.32-3.29 H MONO x10^3 (test code = 742-7) 0.42 10*3/uL 0.33-0.92 EOS x10^3 (test code = 711-2) 0.13 10*3/uL 0.03-0.39 BASO x10^3 (test code = 704-7) 0.05 10*3/uL 0.01-0.07 Lab Interpretation (test code = 41269-1) Abnormal [facility] with Bgznwfsueezt4435-75-19 11:13:08* Test Item Value Reference Range Interpretation Comme nts WBC (test code = 6690-2) 8.01 See_Comment [Automated messa ge] The system which generated this result transmitted reference range: 4.30 - 11.10 10*3/?L. The reference range was not used to interpret this result as normal/abnormal. RBC (test code = 789-8) 3.50 See_Comment L [Automated messa ge] The system which generated this result transmitted reference range: 3.93 - 5.25 10*6/?L. The reference range was not used to interpret this result as normal/abnormal. HGB (test code = 718-7) 9.9 g/dL 11.6-15.0 L HCT (test code = 4544-3) 30.2 % 35.7-45.2 L MCV (test code = 787-2) 86.3 fL 80.6-95.5 MCH (test code = 785-6) 28.3 pg 25.9-32.8 MCHC (test code = 786-4) 32.8 g/dL 31.6-35.1 RDW-SD (test code = 44372-0) 48.2 fL 39.0-49.9 RDW-CV (test code = 788-0) 15.4 % 12.0-15.5 PLT (test code = 777-3) 236 See_Comment [Automated messa ge] The system which generated this result transmitted reference range: 166 - 358 10*3/?L. The reference range was not used to interpret this result as normal/abnormal. MPV (test code = 85366-2) 10.7 fL 9.5-12.9 NRBC/100 WBC (test code = 6561048008) 0.0 See_Comment [Automated me ssage] The system which generated this result transmitted reference range: 0.0 - 10.0 /100 WBCs. The reference range was not used to interpret this result as normal/abnormal. NRBC x10^3 (test code = 3536977559) See_Comment [Automated messa ge] The system which generated this result transmitted reference range: 10*3/?L. The reference range was not used to interpret this result as normal/abnormal. GRAN MAT (NEUT) % (test code = 770-8) 45.3 % IMM GRAN % (test code = 9259567500) 0.40 % LYMPH % (test code = 736-9) 46.9 % MONO % (test code = 5905-5) 5.2 % EOS % (test code = 713-8) 1.6 % BASO % (test code = 706-2) 0.6 % GRAN MAT x10^3(ANC) (test code = 0434692075) 3.62 10*3/uL 1.88-7.09 IMM GRAN x10^3 (test code = 1368575181) 0.03 10*3/uL 0.00-0.06 LYMPH x10^3 (test code = 731-0) 3.76 10*3/uL 1.32-3.29 H MONO x10^3 (test code = 742-7) 0.42 10*3/uL 0.33-0.92 EOS x10^3 (test code = 711-2) 0.13 10*3/uL 0.03-0.39 BASO x10^3 (test code = 704-7) 0.05 10*3/uL 0.01-0.07 Lab Interpretation (test code = 96280-6) Abnormal [facility] [id number] 13:31:00* Test Item Value Reference Range Interpretation Comme nts POCT PREG (test code = 1605) Negative On board controls acceptable with C Line (test code = 3574) Yes POCT PREG LOT # (test code = 3575) [id number] POCT PREG TEST DATE ( test code = 3576) 11/17/2024 Lab Interpretation (test cod e = 91362-5) [id number] 13:31:00* Test Item Value Reference Range Interpretation Comme nts POCT PREG (test code = 1605) Negative On board controls acceptable with C Line (test code = 3574) Yes POCT PREG LOT # (test code = 3575) [id number] POCT PREG TEST DATE ( test code = 3576) 11/17/2024 Lab Interpretation (test cod e = 38932-7) Normal [facility] Consult Notes Date/Time Note Provider Source 2023-07-05 21:41:59 Associated Order(s): CONSULT CARDIOLOGY [facility] Cardiology Consult PCP: PATIENT DOES NOT HAVE A PCP Date of Service: 07/05/2023 CHIEF COMPLAINT/reason for consult: Bradycardia HISTORY OF PRESENT ILLNESS This is a 38 years old female with significant past medical history who presented to [facility] emergency room with epigastric pain. She was found to have severe biliary colic and surgery is being planned for tomorrow. She was noted to have sinus bradycardia. She denies dizziness or syncope. PAST MEDICAL HISTORY Past Medical History: Diagnosis Date Alcohol abuse Recurrent pyelonephritis Past Surgical History: Procedure Laterality Date BREAST SURGERY PARTIAL REMOVAL OF OVARY(S) Bilateral 2009 2/2 cysts TUBAL LIGATION Family History Problem Relation Age of Onset Hypertension Father Cancer Brother 40 brain CA AR (myocardial infarction) Paternal Grandfather ALLERGIES Allergies Allergen Reactions Tramadol Anxiety and Hallucinations MEDICATIONS No current facility-administered medications on file prior to encounter. Current Outpatient Medications on File Prior to Encounter Medication Sig Dispense Refill famotidine (PEPCID) 40 mg tablet Take 1 tablet by mouth in the morning and 1 tablet in the evening. ondansetron 4 mg tablet 1-2 tablets every 8 hours as needed for nausea 20 tablet 0 sucralfate 1 gram tablet Take 1 tablet by mouth before meals and at bedtime. 30 tablet 0 SOCIAL HISTORY Social History Socioeconomic History Marital status: Single Occupational History Occupation: none Tobacco Use Smoking status: Former Packs/day: 0.30 Years: 10.00 Additional pack years: 0.00 Total pack years: 3.00 Types: Cigarettes Smokeless tobacco: Never Tobacco comments: half packet a day, vapes. Vaping Use Vaping Use: Every day Substance and Sexual Activity Alcohol use: Not Currently Comment: 6 pack every other day Drug use: No Social History Narrative Lives with and 2 daughters REVIEW OF SYSTEMS At least 10 systems reviewed, negative except as mentioned in HPI PHYSICAL EXAMINATION Vitals: 07/05/23 1326 07/05/23 1335 07/05/23 1637 07/05/23 1953 BP: 101/57 104/57 97/50 Pulse: 54 (!) 48 (!) 49 Resp: 18 18 20 Temp: 36.1 ?C (97 ?F) 36.2 ?C (97.1 ?F) 36.2 ?C (97.1 ?F) TempSrc: SpO2: 99% 98% 98% Weight: 59.5 kg (131 lb 1.6 oz) Height: 1.499 m (4' 11") Constitutional: alert and oriented x 3 (person, place and date/time); no apparent distress ENT: normocephalic atraumatic, supple, no lymphadenopathy, no bruits, no JVD Lungs: clear to auscultation bilaterally Cardiovascular: S1, S2 normal, regular; no murmurs, rubs or gallops GI: soft; non-tender; non-distended; normoactive bowel sounds : not examined Musculoskeletal: Extremities: no clubbing, cyanosis, or edema Skin: no rashes Neuro: no focal deficits LABS - reviewed pertinent labs as below: CBC BMP PT/INR WBC (10*3/?L) Date Value 07/05/2023 8.68 NA (mmol/L) Date Value 07/05/2023 139 No results found for: "PT" PLT (10*3/?L) Date Value 07/05/2023 264 K (mmol/L) Date Value 07/05/2023 4.1 No results found for: "PTINR" HGB (g/dL) Date Value 07/05/2023 11.2 (L) BUN (mg/dL) Date Value 07/05/2023 13 HCT (%) Date Value 07/05/2023 34.2 (L) CREATININE (mg/dL) Date Value 07/05/2023 0.65 LIPID PROFILE GLUCOSE (mg/dL) Date Value 07/05/2023 89 No results found for: "CHOL" TSH No results found for: "LDL" TSH (mIU/L) Date Value 07/05/2023 2.05 CARDIAC ENZYMES No results found for: "HDL" No results found for: "CK" No results found for: "TRIG" LFTs No results found for: "CKMB" AST(SGOT) (U/L) Date Value 07/05/2023 21 TROPONIN I (ng/mL) Date Value 02/05/2023 0.007 ALT(SGPT) (U/L) Date Value 01/03/2019 16 ALTv (U/L) Date Value 07/05/2023 17 No results found for: "BNP" EKG: Sinus bradycardia, nonspecific T wave abnormality ASSESSMENT/PLAN Principal Problem: RUQ abdominal pain Active Problems: Biliary colic Sinus bradycardia Biliary colic-defer to primary team and surgery team. Sinus bradycardia-according to the patient, she has chronic bradycardia. Probably exacerbated by abdominal pain, vagal reaction and pain medications. No major cardiac risk factors. No concerning cardiac symptoms. EKG showed nonspecific abnormalities. Echocardiogram to assess structural heart disease. She does not have significant AV block or pauses. Consider as needed atropine if symptomatic bradycardia develops perioperatively. Probably low to intermediate cardiac risk, mainly for symptomatic bradycardia. Her TSH was normal. Thank you for allowing us to participate in the care of your patient. Please feel free to contact us for any questions or if we can be of further assistance. Payton Ibarra MD, FACC, DOREEN [facility] Division of Cardiovascular Medicine [facility] 2023-07-05 10:20:54 Formatting of this n ote is different from the original. General Surgery Consult Reason for Consult: "biliary colic" History of Present Illness: Tayo Veras is a 38 year old female presenting with right upper quadrant abdominal pain concerning for severe biliary colic. Symptoms first started 6 months ago and are localized to the right upper quadrant. This most recent episode started 3 days ago. It is associated with nausea, vomiting, and heartburn. She has been treated with antiemetics and antiacids without relief. She has never had EGD. She has had 2 major episodes and weekly minor episodes. On arrival, vital signs were within normal limits and the patient was not febrile. Garcia sign was not present. Labs were within normal limits. US scan showed no signs of acute cholecystitis, but did show two large stones. Past Medical History: Patient has a past medical history of Alcohol abuse and Recurrent pyelonephritis. Past Surgical History: Patient has a past surgical history that includes partial removal of ovary(s) (Bilateral, 2009). Family History: Patient's family history includes AR (myocardial infarction) in her paternal grandfather. Social History: Patient reports that she has quit smoking. She has a 3.00 pack-year smoking history. She has never used smokeless tobacco. She reports current alcohol use. She reports that she does not use drugs. Review of systems: Constitutional: (-) fever, (-) chills, (-) weight change Integumentary: (-) rash, (-) lesion Head: (-) headache, (-) change in hearing, (-) change in vision Neck: (-) pain, (-) difficulty swallowing, (-) mass Hematologic: (-) bleeding disorder Pulmonary: (-) cough, (-) shortness of breath Cardiovascular: (-) chest pain, (-) palpitations, (-) syncope Gastrointestinal: (+) abdominal pain, (+) vomiting, (-) diarrhea Genitourinary: (-) dysuria, (-) increased frequency Endocrine: (-) heat intolerance, (-) cold intolerance, (-) polyuria, (-) polydipsia Neurologic: (-) numbness, (-) tingling, (-) weakness Back: (-) pain, (-) spasms Musculoskeletal: (-) muscle pain, (-) joint pain, (-) claudication Psychiatric: (-) anxiety, (-) depression, (-) psychiatric disorder Objective: Vitals: Temp: [36.8 ?C (98.2 ?F)] Pulse: [52-60] Resp: [14-16] BP: (100-101)/(48-65) MAP (mmHg): [63-70] Physical exam: General: no apparent distress Neurologic: alert and oriented to person, place, and time Cardiac: regular rate and rhythm Chest: unlabored breathing Extremities: no gross deformities or injuries Vascular: pulses palpable and equal Abdomen: no rebound, guarding, or point tenderness Skin: no rashes Laboratory: There are no current results on file for these tests and/or test for 1 year. Recent Labs 07/05/23 0828 WBC 8.68 HGB 11.2* PLT 264 Recent Labs 07/05/23 0828 NA 139 K 4.1 CL 106 TCO2 25 BUN 13 CREAT 0.65 GLU 89 CA 8.9 Recent Labs 07/05/23 0828 BILIT 0.2 ALT 17 AST 21 ALKPHOS 53 ALB 3.9 LIPASE 70 There are no current results on file for these tests and/or test for 1 year. Recent Labs 02/05/23 0824 TROPNI 0.007 There are no current results on file for these tests and/or test for 1 year. Radiology: No final results containing an impression from the past 30 days were found. Microbiology: N/A Pathology: N/A Assessment: The patient is presenting with a picture consistent with severe biliary colic based off of imaging and laboratory findings. The patient would likely benefit from surgical intervention given that she cannot schedule a case given that she is uninsured and disabled from the pain. After a discussion of the risks, benefits, and alternatives of the procedure, they would like to proceed with surgical intervention. Recommendations: - Admit to floor - NPO past midnight with IVF - Multimodal pain and nausea control - Consented and posted for laparoscopy cholecystectomy +/- IOC Patient was discussed with the attending surgeon television maintenance worker. Laci Us MD 07/05/2023 10:21 Associated attestation - Sherice Mcmahon MD - 07/05/2023 12:47 PM CDT I personally examined the patient on 07/05/[address] Us's resident note as written . I actively participated in the decision-making process. Please see the resident's note for additional details. Will plan for Lap aide tomorrow NPO after midnight Risks and benefits of surgeries discussed with patient Sherice Mcmahon MD ELISA-SURGERY [facility] - Health History and Physical Notes Date/Time Note Provider Source 2023-07-05 18:05:46 Formatting of this n ote is different from the original. [facility] Hospitalist Admission H&P Date of Service: 07/05/2023 CHIEF COMPLAINT: Epigastric pain HISTORY OF PRESENT ILLNESS Tayo Veras is a 38 year old female with no significant past medical history who presents with epigastric pain and discomfort for the past 12 hours. Patient stated that she has had gallbladder issues in the past and have been dealing with this intermittently for about 6 months. Patient reports that the discomfort and pain begin late last night in the right upper epigastric quadrant 06/24. Patient denies chest pain, nausea, vomiting, shortness of breath, alcohol use or abuse. Hospitalist were consulted for inpatient admission and further evaluation. PAST MEDICAL HISTORY Past Medical History: Diagnosis Date Alcohol abuse Recurrent pyelonephritis PAST SURGICAL HISTORY Past Surgical History: Procedure Laterality Date BREAST SURGERY PARTIAL REMOVAL OF OVARY(S) Bilateral 2009 2/2 cysts TUBAL LIGATION ALLERGIES Allergies Allergen Reactions Tramadol Anxiety and Hallucinations MEDICATIONS Current home medication list reviewed: Current Discharge Medication List START taking these medications Details dicyclomine 20 mg tablet Take 1 tablet by mouth 4 (four) times daily. Qty: 25 tablet, Refills: 0 Associated Diagnoses: Biliary colic STOP taking these medications famotidine (PEPCID) 40 mg tablet Comments: Reason for Stopping: ondansetron 4 mg tablet Comments: Reason for Stopping: sucralfate 1 gram tablet Comments: Reason for Stopping: FAMILY HISTORY Family History Problem Relation Age of Onset Hypertension Father Cancer Brother 40 brain CA AR (myocardial infarction) Paternal Grandfather SOCIAL HISTORY Social History Socioeconomic History Marital status: Single Occupational History Occupation: none Tobacco Use Smoking status: Former Packs/day: 0.30 Years: 10.00 Additional pack years: 0.00 Total pack years: 3.00 Types: Cigarettes Smokeless tobacco: Never Tobacco comments: half packet a day, vapes. Vaping Use Vaping Use: Every day Substance and Sexual Activity Alcohol use: Not Currently Comment: 6 pack every other day Drug use: No Social History Narrative Lives with and 2 daughters REVIEW OF SYSTEMS Constitutional: negative fevers/chills, weight changes Eyes: negative acute blurry vision, eye discharge Ears, Nose, Mouth, Throat: negative dysphagia, runny nose, sore throat, tinnitus Cardiovascular: negative chest pain, paplitaitons Respiratory: negative sob, cough Gastrointestinal: Positive for abd pain Genitourinary: Negative dysuria, hematuria Musculoskeletal: negative calf pain, swelling Integumentray: negative rash, itching Neurological: negative syncope, focal weakness Psychiatric: negative hallucinations PHYSICAL EXAMINATION BP 104/57 | Pulse (!) 48 | Temp 36.2 ?C (97.1 ?F) | Resp 18 | Ht 1.499 m (4' 11") | Wt 59.5 kg (131 lb 1.6 oz) | SpO2 98% | BMI 26.48 kg/m? General: No acute distress HEENT: Normal oral mucosa, anicteric sclerae, NCAT Cardiovascular: RRR, strong symmetric radial pulses Lungs: CTAB Abdomen: Soft, NTND Musculoskeletal: Normal ROM, normal muscle mass Genitourinary: Normal Skin: No rash, lesions Neuro: AAOx3, no focal deficits Psych: Normal affect LABS - reviewed pertinent labs as below: CBC BMP PT/INR WBC (10*3/?L) Date Value 07/05/2023 8.68 NA (mmol/L) Date Value 07/05/2023 139 No results found for: "PT" RBC (10*6/?L) Date Value 07/05/2023 3.94 K (mmol/L) Date Value 07/05/2023 4.1 No results found for: "PTINR" PLT (10*3/?L) Date Value 07/05/2023 264 CALCIUM (mg/dL) Date Value 07/05/2023 8.9 HGB (g/dL) Date Value 07/05/2023 11.2 (L) CL (mmol/L) Date Value 07/05/2023 106 aPTT HCT (%) Date Value 07/05/2023 34.2 (L) BUN (mg/dL) Date Value 07/05/2023 13 No results found for: "APTTPAT" CREATININE (mg/dL) Date Value 07/05/2023 0.65 IMAGING - reviewed, pertinent results as below: Hospital Encounter on 07/05/23 US GALL BLADDER Narrative EXAM: US GALL BLADDER HISTORY: 38 years-old Female; evaluate for cholecystitis TECHNIQUE: Limited abdominal ultrasound focused on the gallbladder was performed. The main portal vein was evaluated with color Doppler. Supervisor Rough End images were obtained for the record. COMPARISON: Gallbladder ultrasound dated 02/05/2023. CT abdomen and pelvis dated 04/06/2018. FINDINGS: PANCREAS: The pancreatic head and body display normal echogenicity to the extent visualized. LIVER: Parenchyma: The liver parenchyma exhibits normal hepatic echogenicity and echotexture. MPV: The main portal vein measures 0.8 cm in diameter and demonstrates hepatopedal flow. The MPV velocity measures 20.0 cm/s. BILE DUCTS: No intra- or extrahepatic biliary dilatation is visualized. The common duct diameter is normal and measures 0.2 cm. GALLBLADDER: Multiple echogenic areas projecting over the gallbladder lumen with density shadow, compatible with gas within the adjacent antrum/duodenal bulb. Of note, this may obscure tiny stones. The gallbladder is physiologically distended. The gallbladder wall thickness is normal and measures 0.1 cm. No pericholecystic fluid is visualized. Garcia's sign was elicited. Impression No cholecystitis or cholelithiasis. Preliminary Report Dictated by Resident: Tommy Mcmanus I, Daniac Walters MD., have reviewed this study and agree with the above report. ASSESSMENT/PLAN Tayo Veras 38 year old female Abdominal pain likely severe biliary colic based on ultrasound imaging. -- Consulted surgery for laparoscopic cholecystectomy plus or minus IOC likely to be performed on 07/06/2023 -- N.p.o. after midnight -- Supportive care for pain -- Antiemetic as needed -- Cardiology consulted for surgical clearance will appreciate your recommendation Prophylaxis: DVT- enoxaparin Stress Ulcer: no indication for prophylaxis Advanced Care Planning (Z71.89) Above assessment and plan discussed at length with patient, patient expressed full understanding. Questions and concerned addressed, I spent 18 minutes discussing the advance care plan. Surrogate decision maker: self Level of care expected after discharge: independent Code status: Full code Smoking Cessation: (Z71.6) Tobacco user?: Former smoker, Present Vapor Observation [facility] was viewed during this stay BERTHA Marcos Associated attestation - Pushpa Kraft MD - 07/05/2023 8:19 PM CDT I have independently seen and evaluated this patient. I agree with the findings and documentation provided in the MANO[facility]'s notes. Patient is a 38 y/o F with PMH of recurrent pyelonephritis/UTIs and alcohol abuse who presented with symptomatic cholelithiasis. General surgery was consulted and plans for laparoscopic cholecystectomy tomorrow. I agree with PO diet, IVFs, analgesics and antiemetics. NPO after midnight. Management discussed with Dr. Mcmahon, general surgeon, who agrees with the current plan. Medicine team will continue to provide daily care. Pushpa Kraft MD 07/05/2023 8:16 PM [facility]
[2024-12-13] MEDS ORDERED: CYCLOBENZAPRINE 10 MG TAB ONE (07:24)
[2024-12-13] MEDS ORDERED: ONDANSETRON 4 MG/2 ML VIAL ONE (07:24)
[2024-12-13] MEDS ORDERED: GABAPENTIN 300 MG CAP ONE (07:24)
[2024-12-13 07:55] LABS: Absolute Basophils 0.1 K/uL (0-0.5); Absolute Eosinophils 0.1 K/uL (0-0.5); Absolute Lymphocytes (CBC) 2.5 K/uL (0.7-4.9); Absolute Monocytes 0.7 K/uL (0.1-1.3); Basophils % 0.8 % (0-1.3); Eosinophils % 1.5 % (0-4.4); Hematocrit 36.6 % (36.0-45.0); Hemoglobin 11.9 g/dL (12.0-15.0); Lymphocytes % 26.5 % (15.3-44.8); MCH 27.6 pg (27.0-35.0); MCHC 32.6 g/dL (32.0-36.0); MCV 84.9 fL (80-100); MPV 8.5 fL (7.6-11.3); Monocytes % 7.1 % (3.3-12.3); Neutrophils % 64.1 % (41.7-73.7); Nucleated Red Blood Cells % 0.1 % (0-0); Platelets 314 thou/uL (152-406); RBC Red Blood Cell Count 4.31 M/uL (3.86-4.86)
[2024-12-13 07:58] LABS: Specific Gravity > 1.030 (1.005-1.030)
[2024-12-13 07:59] LABS: Specific Gravity > 1.030 (1.005-1.030); Transitional Epithelial <5 /HPF (None Seen); Urine Bacteria <20 /HPF (<20); Urine Bilirubin NEGATIVE (Negative); Urine Blood Negative (Negative); Urine Clarity Turbid (Clear); Urine Color Yellow (Yellow); Urine Culture Reflex Order NOT NEEDED; Urine Glucose NEGATIVE (Negative); Urine Ketones NEGATIVE (Negative); Urine Microscopic Reflex YN ORDER UMIC; Urine Mucus 2+ /HPF (None Seen); Urine Nitrite NEGATIVE (Negative); Urine Protein TRACE (Negative); Urine RBC <5 /HPF (None Seen); Urine Urobilinogen 1+ (Normal); Urine WBC <5 /HPF (<5); Urine pH 5.5 (5.0-7.0)
[2024-12-13 08:15] LABS: ALT/SGPT 15 U/L (13-56); Albumin 3.5 g/dL (3.4-5.0); Albumin/Globulin Ratio 1.1 (1.1-1.8); Alkaline Phosphatase 59 U/L (45-117); Anion Gap 10.9 mEq/L (5.0-15.0); BUN Blood Urea Nitrogen 15 mg/dL (7-18); Bicarbonate 21 mEq/L (21-32); Bilirubin Total 0.3 mg/dL (0.2-1.0); Globulin 3.3 g/dL (2.3-3.5); Glomerular Filtration Rate 89 ml/min (=/>90); Glucose Level 107 mg/dL (74-106); Lipase 34 U/L (13-75); Potassium 3.9 mEq/L (3.5-5.1); Protein, Total 6.8 g/dL (6.4-8.2); Sodium Level 137 mEq/L (136-145)
--- NOTE | 2024-12-13 08:19 | RAD REPORT ---
EXAMINATION: CT ABDOMEN AND PELVIS stone protocol WITHOUT CONTRAST CLINICAL INDICATION: Female, 39 years old.right flank pain/back pain TECHNIQUE: CT abdomen and pelvis stone protocol was performed, without IV contrast, as per department protocol. Axial, sagittal and coronal reconstructions were obtained. One or more of the following dose reduction techniques were used: Automated exposure control, adjustment of the mA and/or kV accor ding to the patient size, and/or iterative reconstruction. Unless otherwise specified, incidental findings do not require dedicated imaging follow-up. [id number]. IV CONTRAST: Not administered. COMPARISON: 09/29/2010 FINDINGS: The lack of intravenous contrast limits the sensitivity of this exam for evaluation of solid visceral organs, vascular structures, and retroperitoneum. LOWER CHEST: No acute process identified.No significant pericardial effusion. Mild circumferential th ickening of the distal esophagus which could reflect esophagitis. Breast prostheses. UPPER GI: No significant abnormality. LIVER: No significant focal abnormality. GALLBLADDER/BILE DUCTS: Cholecystectomy. No significant biliary ductal dilatation.? PANCREAS: No mass, ductal dilation, or fabricio-pancreatic fluid. SPLEEN: Unremarkable. ADRENALS: No adrenal masses. KIDNEYS AND URETERS: No hydronephrosis.Within the limitations of a noncontrast CT, no suspicious lee l lesions.No urinary tract calculi. ABDOMINAL AORTA AND OTHER VESSELS: Normal caliber aorta and IVC. PERITONEUM: No abnormal free fluid. No free air. LYMPH NODES: No pathologic lymphadenopathy. ABDOMINAL WALL: Small fat containing umbilical hernia. SMALL BOWEL/COLON: Small bowel has normal course and caliber. No colonic wall thickening or pericolon ic inflammatory changes.Normal appendix. URINARY BLADDER: Underdistended but grossly unremarkable. REPRODUCTIVE ORGANS: No pathologic process. MUSCULOSKELETAL: No acute or suspicious osseous abnormality. ADDITIONAL FINDINGS: None. IMPRESSION: No acute or significant abnormalities in the abdomen or pelvis, with evaluation limited by lack of IV contrast. No urinary tract calculi.
[2024-12-13 08:23] LABS: AST/SGOT < 10 U/L (15-37)
--- NOTE | 2024-12-13 09:09 | ER ---
Nurse's Notes [facility] Name: Carmelita Veras Age: 39 yrs Sex: Female : 1985 Arrival Date: 12/13/2024 Time: 06:56 Bed 23 Private MD: Diagnosis: Back pain;Muscle spasm of back Presentation: 12/13 07:10 Chief complaint: Patient states: R FLANK PAIN x3 DAYS, NOW EXTENDING TO R SCIATIC bp PATTERN. DENIES TRAUMA, BUT DID START NEW JOB [employer]. Coronavirus screen: At this time, the client does not indicate any symptoms associated with coronavirus-19. Ebola Screen: No symptoms or risks identified at this time. Initial Sepsis Screen: Does the patient meet any 2 criteria? No. Patient's initial sepsis screen is negative. Does the patient have a suspected source of infection? No. Patient's initial sepsis screen is negative. Risk Assessment: Do you want to hurt yourself or someone else? Patient reports no desire to harm self or others. Onset of symptoms is unknown. 07:10 Method Of Arrival: Ambulatory bp 07:10 Acuity: JOSEFINA 3 bp Triage Assessment: 07:11 General: Appears distressed, uncomfortable, Behavior is cooperative, appropriate for bp age, anxious. Pain: Complains of pain in back. EENT: No deficits noted. Neuro: No deficits noted. Cardiovascular: No deficits noted. Respiratory: No deficits noted. GI: No signs and/or symptoms were reported involving the gastrointestinal system. : Reports pain in right flank(s). Derm: No deficits noted. Musculoskeletal: Circulation, motion, and sensation intact. Range of motion: intact in all extremities. Historical: - Allergies: 07:11 Tramadol HCl; bp - PMHx: 07:11 Kidney stones; Ovarian cyst; bp - PSHx: 07:11 Cholecystectomy; bp - Immunization history:: Adult Immunizations up to date. - Infectious Disease History:: Denies. - Social history:: Smoking status: Patient denies any tobacco usage or history of. - Family history:: not pertinent. - Hospitalizations: : No recent hospitalization is reported. Screenin:12 [facility] ED Fall Risk Assessment (Adult) History of falling in the last 3 months, bp including since admission No falls in past 3 months (0 pts) Confusion or Disorientation No (0 pts) Intoxicated or Sedated No (0 pts) Impaired Gait No (0 pts) Mobility Assist Device Used No (0 pt) Altered Elimination No (0 pt) Score/Fall Risk Level 0 - 2 = Low Risk Oriented to surroundings. Abuse screen: Denies threats or abuse. Denies injuries from another. Nutritional screening: No deficits noted. Tuberculosis screening: No symptoms or risk factors identified. Assessment: 07:13 General: Appears in no apparent distress. uncomfortable, Behavior is cooperative, bp appropriate for age, anxious. Pain: Complains of pain in back. Neuro: Level of Consciousness is awake, alert, obeys commands, Oriented to Appropriate for age Gait is steady. Vital Signs: 07:10 BP 113 / 68; Pulse 65; Resp 20; Temp 97.6; Pulse Ox 100% ; Weight 65.77 kg; Height 4 bp ft. 11 in. ; 09:26 BP 117 / 63; Pulse 67; Resp 18; Pulse Ox 100% ; bp 07:10 Body Mass Index 29.29 (65.77 kg, 149.86 cm) bp ED Course: 07:00 Patient arrived in ED. mr 07:02 Fernando Infante MD is Attending Physician. rn 07:03 Brent Helm, RAIMUNDO is Primary Nurse. bp 07:11 Triage completed. bp 07:11 Arm band placed on. bp 07:12 Patient has correct armband on for positive identification. Provided Education on: NA. bp 07:36 Initial lab(s) drawn, by me, sent to lab. Urine collected: clean catch specimen, clear. bp Inserted saline lock: 20 gauge in right forearm, using aseptic technique. Blood collected. Flushed with 10 mL NS. 08:05 CT Stone Protocol In Process Unspecified. EDMS 09:26 No provider procedures requiring assistance completed. IV discontinued, intact, bp bleeding controlled, No redness/swelling at site. Pressure dressing applied. Administered Medications: 07:30 Drug: Gabapentin PO 300 mg PO once Route: PO; bp 09:06 Follow up: Response: No adverse reaction bp 07:30 Drug: Cyclobenzaprine PO 10 mg PO once Route: PO; bp 09:06 Follow up: Response: No adverse reaction bp 07:30 Drug: Ondansetron IVP 4 mg IVP once; over 2 minutes Route: IVP; Site: right forearm; bp 09:06 Follow up: Response: No adverse reaction bp 09:15 Drug: Ketorolac IVP 30 mg IVP once Route: IVP; Site: right forearm; bp 09:27 Follow up: Response: No adverse reaction bp Medication: : VIS not applicable for this client. bp Outcome: 09:08 Discharge ordered by . rn 09:26 Discharged to home ambulatory, with family, bp 09:26 Condition: stable 09:26 Discharge instructions given to patient, family, Instructed on discharge instructions, follow up and referral plans. medication usage, Demonstrated understanding of instructions, follow-up care, medications, Prescriptions given X 3, :27 Patient left the ED. bp Signatures: Dispatcher [employer] EDMS Nikki Savage, Reg Aryan mr Fernando Infante MD MD rn Peltier, Brian, RN RN bp
--- NOTE | 2024-12-13 09:09 | EDPHYS ---
Physician Documentation [facility] Name: Carmelita Veras Age: 39 yrs Sex: Female : 1985 Arrival Date: 12/13/2024 Time: 06:56 Bed 23 Private MD: ED Physician Fernando Infante HPI: 12/13 07:33 This 39 yrs old Female presents to ER via Ambulatory with complaints of Back rn Pain. 07:33 The patient presents with pain that is acute. The symptoms are located in the right mid rn back. Onset: The symptoms/episode began/occurred yesterday. The pain does not radiate. Associated signs and symptoms: Pertinent positives: nausea, Pertinent negatives: chest pain, fever, hematuria, incontinence, numbness, tingling, urinary retention. Modifying factors: The patient symptoms are alleviated by nothing, the patient symptoms are aggravated by any movement. Severity of symptoms: At their worst the symptoms were moderate, in the emergency department the symptoms are unchanged. The patient has not experienced similar symptoms in the past. Patient denies any trauma. reports sudden onset back pain while sitting, right flank pain, worse with any movement and worsened with TENS units. No fever or chills. No chest pain. No abdominal pain. Does has history of kidney stones. States this feels different from her previous kidney stones. Historical: - Allergies: 07:11 Tramadol HCl; bp - PMHx: 07:11 Kidney stones; Ovarian cyst; bp - PSHx: 07:11 Cholecystectomy; bp - Immunization history:: Adult Immunizations up to date. - Infectious Disease History:: Denies. - Social history:: Smoking status: Patient denies any tobacco usage or history of. - Family history:: not pertinent. - Hospitalizations: : No recent hospitalization is reported. ROS: 07:33 Constitutional: Negative for fever, chills, and weight loss, Cardiovascular: Negative rn for chest pain, palpitations, and edema, Respiratory: Negative for shortness of breath, cough, wheezing, and pleuritic chest pain, Abdomen/GI: Negative for abdominal pain, nausea, vomiting, diarrhea, and constipation, Back: + back pain : Negative for injury, bleeding, discharge, and swelling, MS/Extremity: Negative for injury and deformity, Neuro: Negative for headache, weakness, numbness, tingling, and seizure, Exam: 07:33 Constitutional: This is a well developed, well nourished patient who is awake, alert, rn appears uncomfortable Cardiovascular: Regular rate and rhythm with a normal S1 and S2. No gallops, murmurs, or rubs. Normal PMI, no JVD. No pulse deficits. Respiratory: Lungs have equal breath sounds bilaterally, clear to auscultation and percussion. No rales, rhonchi or wheezes noted. No increased work of breathing, no retractions or nasal flaring. Abdomen/GI: Soft, non-tender, with normal bowel sounds. No distension or tympany. No guarding or rebound. No evidence of tenderness throughout. Back: No spinal tenderness. No costovertebral tenderness. Neuro: Awake and alert, GCS 15 Vital Signs: 07:10 BP 113 / 68; Pulse 65; Resp 20; Temp 97.6; Pulse Ox 100% ; Weight 65.77 kg; Height 4 bp ft. 11 in. ; 09:26 BP 117 / 63; Pulse 67; Resp 18; Pulse Ox 100% ; bp 07:10 Body Mass Index 29.29 (65.77 kg, 149.86 cm) bp MDM: 07:02 Medical Screening Exam initiated rn 09:07 Differential diagnosis: arthritis, Pyelonephritis sprain, Ureterolithiasis Gastritis, rn esophagitis, muscle spasm. Data reviewed: vital signs, nurses notes, lab test result(s), radiologic studies, CT scan, and as a result, I will discharge patient. Counseling: I had a detailed discussion with the patient and/or guardian regarding the historical points, exam findings, and any diagnostic results supporting the discharge/admit diagnosis, lab results, radiology results, the need for outpatient follow up, to return to the emergency department if symptoms worsen or persist or if there are any questions or concerns that arise at home. Special discussion: I discussed with the patient/guardian in detail that at this point there is no indication for admission to the hospital. It is understood, however, that if the symptoms persist or worsen the patient needs to return immediately for re-evaluation. Based on the history and exam findings, there is no indication for further emergent testing or inpatient evaluation. I discussed with the patient/guardian the need to see the primary care provider for further evaluation of the symptoms. ED course: I have personally reviewed all of the results, including but not limited to blood tests and imaging deemed necessary to safely discharge this patient at this time. All results given to and printed out for patient. I personally went over all the results with the patient and answered all questions. Patient will follow-up with PCP and or specialist as discussed. Return precautions given and understood. Will add Protonix given findings of esophagitis. 12/13 07:20 Order name: CBC with Diff; Complete Time: 08:59 rn 12/13 07:20 Order name: CMP; Complete Time: 08:59 rn 12/13 07:20 Order name: Lipase; Complete Time: 08:59 rn 12/13 07:20 Order name: Urinalysis w/ reflexes; Complete Time: 08:59 rn 12/13 07:35 Order name: Test, Urine; Complete Time: 08:59 bp 12/13 07:20 Order name: CT Stone Protocol; Complete Time: 08:59 rn 12/13 07:20 Order name: IV Saline Lock; Complete Time: 07:35 rn 12/13 07:20 Order name: Labs collected and sent; Complete Time: 07:35 rn Administered Medications: 07:30 Drug: Gabapentin PO 300 mg PO once Route: PO; bp 09:06 Follow up: Response: No adverse reaction bp 07:30 Drug: Cyclobenzaprine PO 10 mg PO once Route: PO; bp 09:06 Follow up: Response: No adverse reaction bp 07:30 Drug: Ondansetron IVP 4 mg IVP once; over 2 minutes Route: IVP; Site: right forearm; bp 09:06 Follow up: Response: No adverse reaction bp 09:15 Drug: Ketorolac IVP 30 mg IVP once Route: IVP; Site: right forearm; bp 09:27 Follow up: Response: No adverse reaction bp Disposition Summary: 12/13/24 09:08 Discharge Ordered Notes: Location: Home rn Problem: new rn Symptoms: have improved rn Condition: Stable rn Diagnosis - Back pain rn - Muscle spasm of back rn Followup: rn - With: Private Physician - When: As needed - Reason: Recheck today's complaints, Re-evaluation by your physician Discharge Instructions: - Discharge Summary Sheet rn - Muscle Cramps and Spasms rn - Back Exercises rn Forms: - Work release form bd - Family Work Release bd - Medication Reconciliation Form rn - Antibiotic rn behavioral health - Prescription Opioid Use rn - Patient Portal Instructions rn - Leadership Thank You Letter rn Prescriptions: - Protonix 40 mg Oral Tablet - take 1 tablet ORAL route once daily; 30 tablet; Refills: 0, Product Selection rn Permitted - Cyclobenzaprine 10 mg Oral tablet - take 1 tablet ORAL route every 8 hours As needed; 15 tablet; Refills: 0, rn Product Selection Permitted - Medrol (Erick) 4 mg Oral Tablets, Dose Pack - take 1 tablet ORAL route as directed - follow package instructions; 1 packet; rn Refills: 0, Product Selection Permitted Signatures: Dispatcher [employer] EDSD Fernando Infante MD MD rn Peltier, Brian, RN RN bp Corrections: (The following items were deleted from the chart) 07:20 07:20 CBC+H.LAB.BRZ ordered. [facility] 07:20 07:20 COMPREHENSIVE METABOLIC PANEL+C.LAB.BRZ ordered. [facility] 07:20 07:20 LIPASE+C.LAB.BRZ ordered. [facility] 07:20 07:20 Urinalysis+U.LAB.BRZ ordered. [facility] 07:20 07:20 Stone Protocol+CT.RAD.BRZ ordered. [facility] 07:35 07:33 Constitutional: Negative for fever, chills, and weight loss, Cardiovascular: rn Negative for chest pain, palpitations, and edema, Respiratory: Negative for shortness of breath, cough, wheezing, and pleuritic chest pain, Abdomen/GI: Negative for abdominal pain, nausea, vomiting, diarrhea, and constipation, Back: + back pain MS/Extremity: Negative for injury and deformity, Neuro: Negative for headache, weakness, numbness, tingling, and seizure, rn 07:37 07:33 Constitutional: This is a well developed, well nourished patient who is awake, rn alert, and in no acute distress. Cardiovascular: Regular rate and rhythm with a normal S1 and S2. No gallops, murmurs, or rubs. Normal PMI, no JVD. No pulse deficits. Respiratory: Lungs have equal breath sounds bilaterally, clear to auscultation and percussion. No rales, rhonchi or wheezes noted. No increased work of breathing, no retractions or nasal flaring. Abdomen/GI: Soft, non-tender, with normal bowel sounds. No distension or tympany. No guarding or rebound. No evidence of tenderness throughout. Back: No spinal tenderness. No costovertebral tenderness. Neuro: Awake and alert, GCS 15 rn
[2024-12-13] MEDS ORDERED: KETOROLAC 30 MG/ML INJ ONE (09:16)
[2024-12-13 16:08] VITALS: TEMP 97.6; O2SAT 100
[2024-12-13 16:09] VITALS: BP 117/63
== END 2024-12-13 09:27 | disposition home or self-care (01) ==
LOC: ER 06:56
DX: M62.830 Muscle spasm of back (principal); Z87.442 Personal history of urinary calculi
CPT/HCPCS: 36415; 74176; 76377; 80053; 81001; 81025; 83690; 85025; J2405

== ENCOUNTER 2025-02-14 08:21 | Emergency (ER) | payer SELFPAY ==
--- OUTSIDE RECORDS SUMMARY | 2025-02-14 08:26 | XMS REPORT | Continuity of Care Document ---
Author Name Unknown Address [address] [facility] [address] [place] [address] [facility] Address [address] [facility] [address] [place] [address] Care Team Providers Care Pole Shaver Name Role Phone PCP, PATIENT DOES NOT HAVE A Primary Care Physic flora Unavailable NEHAL AKBAR Attending Clinician Unavailab Nehal Chase Attending Clinician [phone] SHERICE MCMAHON Attending Clinician Unavailable SHERICE MCMAHON Attending Clinician Unavailable AURORA SPENCER Attending Clinician Unavailable Alton Caledron MD Attending Clinician [phone] Aurora Spencer MD Attending Clinician [phone] PUSHPA KRAFT Attending Clinician Unavailable James De Jesus DO Attending Clinician [phone] Pushpa Kraft MD Attending Clinician [phone] NIRMAL ACEVES Attending Clinician UnavailNirmal Ruiz MD Attending Clinician + [phone] AURORA SPENCER Admitting Clinician Unavailable PUSHPA KRAFT Admitting Clinician Unavailable Pushpa Kraft MD Admitting Clinician [phone] NIRMAL ACEVES Admitting Clinician Unavailsherita cordero Payers Payer Name Policy Type Policy Number Effective Date Expirati on Date Source [employer] [id number] 2023 00:00:00 Problems Condition Name Condition Details Condition Category Status Onset Date Resolution Date Last Treatment Date Treating Clinician Comments Source Abnormal EKG Abnormal EKG Disease Active 07-06 00:00: 00 [facility] RUQ abdominal pain RUQ abdominal pain Disease Active 07-05 00:00: 00 [facility] Biliary colic Biliary colic Disease Active 07-05 00:00: 00 [facility] Sinus bradycardi a Sinus bradycardi a Disease Active 07-05 00:00: 00 [facility] Hepatomega ly Hepatomega ly Disease Active 2016-11 00:00: 00 Overview: Formattin g of this note might be different from the original. Tayo Veras is a 32 year old female with Alcohol abuse, with CT findings consisten t with hepatomeg dharmesh during hospital stay in 07/2017 [facility] Recurrent pyelonephr itis Recurrent pyelonephr itis Disease Active 07-19 00:00: 00 [facility] Alcohol abuse Alcohol abuse Disease Active [facility] Allergies, Adverse Reactions, Alerts Allergy Name Allergy Type Status Severity Reaction(s) Onset Date Inactive Date Treating Clinician Comments Source Tramadol Propensi ty to adverse reaction s to drug Active Hallucinatio ns 07-25 00:00: 00 [facility] TRAMADOL DRUG INGREDI Active Low Anxiety 07-25 00:00: 00 [facility] Social History Social Habit Start Date Stop Date Quantity Comments Source History of tobacco use Cigarette Smoker [facility] Alcohol intake 2023-07-20 00:00:00 2023-07-20 00:00:00 Ex-drinker (finding) [facility] History of Social function 2023-07-20 00:00:00 2023-07-20 00:00:00 [facility] Cigarettes smoked current (pack per day) - Reported 2023-07-05 00:00:00 2023-07-05 00:00:00 [facility] Cigarette pack-years 2023-07-05 00:00:00 2023-07-05 00:00:00 [facility] Tobacco use and exposure 2023-07-05 00:00:00 2023-07-05 00:00:00 Smokeless tobacco non-user [facility] Tobacco Comment 2023-07-05 00:00:00 2023-07-05 00:00:00 half packet a day, vapes. [facility] Exposure to SARS-CoV-2 (event) 2023-01-26 00:00:00 2023-02-05 08:12:00 Not sure [facility] Alcohol Comment 2017-07-26 00:00:00 2017-07-26 00:00:00 6 pack every other day [facility] Sex Assigned At 1985 00:00:00 1985 00:00:00 [facility] Smoking Status Start Date Stop Date Source Ex-smoker 2023-07-05 00:00:00 2023-07-05 [facility]00[facility] Medications Ordered Medication Name Filled Medication Name Start Date Stop Date Current Medication? Ordering Clinician Indication Dosage Frequency Signature (SIG) Comments Components Source ondansetron 4 mg disintegrat ing tablet 11-26 00:00: 00 11-26 00:00 :00 No [id number] 4mg Take 1 tablet by mouth every 8 (eight) hours as needed for Nausea and Vomiting (N/V) for up to 5 days. [facility] benzonatate 100 mg capsule 11-26 00:00: 00 11-26 00:00 :00 No [id number] 100mg Take 1 capsule by mouth 3 (three) times daily as needed for Cough. [facility] albuterol 90 mcg/actuati on inhaler 11-26 00:00: 00 11-26 00:00 :00 No [id number] 2{puff} Inhale 2 Puffs every 4 (four) hours as needed for Wheezing or Shortness of Breath. [facility] nirmatrelvi r-ritonavir 300 mg (150 mg x 2)-100 mg tablet 11-26 00:00: 00 11-26 00:00 :00 No [id number] 3{tbl} Take 3 tablets by mouth in the morning and 3 tablets in the evening. [facility] ketorolac (TORADOL) injection 30 mg 07-20 14:30: 00 07-20 13:55 :00 No 30mg 30 mg, Slow IV Push, ONCE, 1 dose, On Wed07/20/23 at 0930, JUANITA [facility] iopamidol (ISOVUE 370-500 mL) injection 75 mL 07-20 14:15: 00 07-20 14:15 :00 No [id number] 75mL 75 mL, Intravenou s, ONCE, 1 dose, On Wed07/20/23 at 0915, Routine [facility] maalox:diph enhydrAMINE :lidocaine 2 % viscous 1:1:1 ([facility] oral suspension 15 mL 07-20 14:00: 00 07-20 13:51 :00 No 15mL 15 mL, Oral, ONCE, 1 dose, On Wed07/20/23 at 0900, JUANITA [facility] FENTanyl PF (SUBLIMAZE (PF)) injection 50 mcg 07-20 11:30: 00 07-20 10:46 :00 No 50ug 50 mcg, Slow IV Push, ONCE, 1 dose, On Wed07/20/23 at 0630, Routine [facility] iopamidol (ISOVUE 370-500 mL) injection 100 mL 07-20 11:30: 00 07-20 11:30 :00 No [id number] 100mL 100 mL, Intravenou s, ONCE, 1 dose, On Wed07/20/23 at 0630, Routine [facility] NaCl 0.9% (NS) bolus infusion 1,000 mL 07-20 11:00: 00 07-20 12:06 :00 No 1000mL at 999 mL/hr, 1,000 mL, IV Infusion, ONCE, 1 dose, On Wed07/20/23 at 0600, STAT [facility] famotidine (PEPCID) 40 mg tablet 07-07 11:34: 06 Yes 40mg Take 1 tablet by mouth in the morning and 1 tablet in the evening. [facility] phenoL (SORE THROAT (PHENOL)) 1.4 % spray bottle 1 [place] 07-07 09:21: 46 Yes 1{spray } 1 [place], Oral, PRN, Starting on Wed07/07/23 at 0421, Until Discontinu ed, Routine, Sore throat [facility] benzocaine (HURRICAINE ONE) 20 % mucosal spray 1 [place] 07-07 04:45: 00 07-07 05:15 :00 No 1{spray } 1 [place], Oral, ONCE, 1 dose, On Wed07/06/23 at 2345, Routine [facility] HYDROcodone -acetaminop hen 5-325 mg tablet 07-07 00:00: 00 07-13 04:59 :00 No [id number] 1{tbl} Take 1 tablet by mouth every 6 (six) hours as needed for Pain (scale 4-6) for up to 5 days. Indication s: acute pain [facility] ketorolac (TORADOL) injection 15 mg 07-06 23:00: 00 07-09 22:59 :00 No 15mg 15 mg, Slow IV Push, Q6H, 12 doses, First dose on Wed07/06/23 at 1800, Last dose on Wed07/09/23 at 1200, Routine [facility] pantoprazol e (PROTONIX) injection 40 mg 07-06 21:30: 00 07-06 20:46 :00 No 40mg 40 mg, Slow IV Push, ONCE, 1 dose, On Wed07/06/23 at 1630 [facility] proMETHazin e (PHENERGAN) 12.5 mg in NaCl 0.9% (NS) 50 mL IV piggyback 07-06 20:21: 45 Yes 12.5mg 12.5 mg, IV Piggyback, Q4HPRN, Starting on Wed07/06/23 at 1521, Until Discontinu ed, Routine, N/V unresponsi ve to oral antiemetic s [facility] HYDROcodone -acetaminop hen (NORCO 5) 5-325 mg tablet 1 tablet 07-06 18:00: 00 07-06 18:32 :00 No 1{tbl} 1 tablet, Oral, ONCE, 1 dose, On Wed07/06/23 at 1300, Routine, PACU [facility] ondansetron (ZOFRAN (PF)) injection 4 mg 07-06 17:47: 57 07-06 18:13 :00 No 4mg 4 mg, Slow IV Push, PRN, 1 dose, Starting on Wed07/06/23 at 1247, Until Wed07/06/23 at 1313, Routine, Nausea and Vomiting (N/V), PACU [facility] FENTanyl PF (SUBLIMAZE (PF)) injection 25 mcg 07-06 17:47: 57 07-06 19:33 :10 No 25ug 25 mcg, Slow IV Push, Q5MIN PRN, 4 doses, Starting on Wed07/06/23 at 1247, Until Wed07/06/23 at 1433, Routine, Pain (scale 4-6), PACU [facility] bupivacaine (preserv free) (SENSORCAIN E MPF) 0.25 % (2.5 mg/mL) injection 07-06 16:42: 00 07-06 17:55 :05 No PRN, Starting on Wed07/06/23 at 1142, Until Wed07/06/23 at 1255, Routine, Intra-op [facility] sodium chloride 0.9 % irrigation solution 07-06 16:39: 00 07-06 17:55 :05 No PRN, Starting on Wed07/06/23 at 1139, Until Wed07/06/23 at 1255, Intra-op [facility] lactated ringers IV infusion 1,000 mL 07-06 14:15: 00 07-06 14:08 :00 No 1000mL at 42 mL/hr, 1,000 mL, IV Infusion, ONCE, 1 dose, On Wed07/06/23 at 0915, Routine, DSU Pre-op [facility] sulfur hexafluorid e microsphr (LUMASON) injection 5 mL 07-06 13:45: 00 07-06 13:45 :00 No [id number] 5mL 5 mL, Intravenou s, ONCE, 1 dose, On Wed07/06/23 at 0845, Routine
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 medication : SHAY SELLERS [facility] famotidine (PEPCID AC) tablet 40 mg 07-06 01:00: 00 Yes 40mg 40 mg, Oral, BID, First dose on Wed07/05/23 at 2000, Until Discontinu ed, Routine [facility] enoxaparin (LOVENOX) injection 40 mg 07-05 22:00: 00 Yes 40mg 40 mg, Subcutaneo us, DAILY, First dose on Wed07/05/23 at 1700, Until Discontinu ed, Routine [facility] NaCl 0.9% (NS) IV infusion 1,000 mL 07-05 19:45: 00 07-06 23:18 :58 No 1000mL at 125 mL/hr, IV Infusion, CONTINUOUS , Starting on Wed07/05/23 at 1445, Until Wed07/06/23 at 1818, Routine [facility] ondansetron (ZOFRAN (PF)) injection 4 mg 07-05 19:42: 11 Yes 4mg 4 mg, Slow IV Push, Q6HPRN, Starting on Wed07/05/23 at 1442, Until Discontinu ed, Routine, Nausea and Vomiting (N/V) [facility] morpHINE (2 mg/mL) injection 4 mg 07-05 19:42: 09 07-06 19:41 :09 No 4mg 4 mg, Slow IV Push, Q4HPRN, Starting on Wed07/05/23 at 1442, Until Wed07/06/23 at 1441, Routine, Pain (scale 7-10) [facility] HYDROcodone -acetaminop hen (NORCO 5) 5-325 mg tablet 1 tablet 07-05 19:42: 06 07-07 19:41 :06 No 1{tbl} 1 tablet, Oral, Q6HPRN, Starting on Wed07/05/23 at 1442, Until Wed07/07/23 at 1441, Routine, Pain (scale 4-6) [facility] acetaminoph en (TYLENOL) tablet 650 mg 07-05 19:41: 59 Yes 650mg 650 mg, Oral, Q6HPRN, Starting on Wed07/05/23 at 1441, Until Discontinu ed, Routine, Pain (scale 1-3), Temp > 38 C [facility] ondansetron (ZOFRAN (PF)) injection 4 mg 07-05 14:30: 00 07-05 13:33 :00 No 4mg 4 mg, Slow IV Push, ONCE, 1 dose, On Wed07/05/23 at 0930, Routine [facility] morpHINE (4 mg/mL) injection 4 mg 07-05 13:22: 44 07-05 19:43 :31 No 4mg 4 mg, Slow IV Push, Q4HPRN, Starting on Wed07/05/23 at 0822, Until Wed07/05/23 at 1443, Routine, Pain (scale 7-10) [facility] dicyclomine 20 mg tablet 07-05 00:00: 00 Yes [id number] 20mg Take 1 tablet by mouth 4 (four) times daily. [facility] NaCl 0.9% (NS) bolus infusion 1,000 mL 02-05 14:15: 00 02-05 15:49 :00 No 1000mL at 999 mL/hr, 1,000 mL, IV Infusion, ONCE, 1 dose, On Wed02/05/23 at 0915, JUANITA [facility] maalox:diph enhydrAMINE :lidocaine 2 % viscous 1:1:1 (FIRST-MOUT [facility] BLM) oral suspension 15 mL 02-05 14:00: 00 02-05 13:56 :00 No 15mL 15 mL, Oral, ONCE, 1 dose, On Wed02/05/23 at 0900, [facility] ondansetron (ZOFRAN (PF)) injection 8 mg 02-05 13:30: 00 02-05 13:30 :00 No 8mg 8 mg, Slow IV Push, ONCE, 1 dose, On Wed02/05/23 at 0830, [facility] famotidine (PEPCID (PF)) injection 20 mg 02-05 13:30: 00 02-05 13:32 :00 No 20mg 20 mg, Slow IV Push, ONCE, 1 dose, On Wed02/05/23 at 0830, [facility] ondansetron 4 mg tablet 02-05 00:00: 00 Yes [id number] 1-2 tablets every 8 hours as needed for nausea [facility] sucralfate 1 gram tablet 02-05 00:00: 00 Yes [id number] 1g Take 1 tablet by mouth before meals and at bedtime. [facility] acetaminoph en-codeine 300-30 mg tablet 01-03 00:00: 02-05 00:00 :00 No [id number] 1{tbl} Take 1 tablet by mouth every 4 (four) hours as needed for Pain (scale 4-6) (Cough). [facility] ibuprofen 600 mg tablet 01-03 00:00: 02-05 00:00 :00 No [id number] 600mg Take 1 tablet by mouth 3 (three) times daily with meals. [facility] levoFLOXaci n 750 mg tablet 04-06 00:00: 00 02-05 00:00 :00 No 750mg Take 1 tablet by mouth daily. [facility] acetaminoph en-codeine (TYLENOL-CO DEINE #3) 300-30 mg tablet 04-06 00:00: 02-05 00:00 :00 No 1{tbl} Take 1 tablet by mouth every 8 (eight) hours as needed for Pain (scale 4-6). [facility] proMETHazin e 25 mg tablet 04-06 00:00: 00 02-05 00:00 :00 No 25mg Take 1 tablet by mouth every 6 (six) hours as needed for Nausea and Vomiting (N/V). [facility] HYDROcodone -acetaminop hen 5-325 mg tablet 1-29 00:00: 00 02-05 00:00 :00 No 1{tbl} Take 1 tablet by mouth every 6 (six) hours as needed for Pain (scale 7-10). [facility] Lactobacill us acidophilus (PROBIOTIC) 10 billion cell capsule 07-27 00:00: 00 02-05 00:00 :00 No 1{capsu le} Take 1 capsule by mouth daily. Take at least 2 hours after morning dose of antibiotic s before taking probiotic [facility] Vital Signs Vital Name Observation Time Observation Value Comments S ource Systolic blood pressure 2023-11-26 23:14:00 103 mm[Hg] [facility] Diastolic blood pressure 2023-11-26 23:14:00 71 mm[Hg] [facility] Heart rate 2023-11-26 23:14:00 75 /min [facility] Body temperature 2023-11-26 23:14:00 37.61 Marichuy [facility] Respiratory rate 2023-11-26 23:14:00 16 /min [facility] Body height 2023-11-26 23:14:00 149.9 cm [facility] Body weight 2023-11-26 23:14:00 74.844 kg [facility] BMI 2023-11-26 23:14:00 33.33 kg/m2 [facility] Oxygen saturation in Arterial blood by Pulse oximetry 2023-11-26 23:14:00 100 /min [facility] Systolic blood pressure 2023-07-20 14:00:00 107 mm[Hg] [facility] Diastolic blood pressure 2023-07-20 14:00:00 54 mm[Hg] [facility] Heart rate 2023-07-20 14:00:00 52 /min [facility] Respiratory rate 2023-07-20 14:00:00 17 /min [facility] Oxygen saturation in Arterial blood by Pulse oximetry 2023-07-20 14:00:00 97 /min [facility] Body temperature 2023-07-20 10:05:00 36.11 Marichuy [facility] Body height 2023-07-20 10:05:00 149.9 cm [facility] Body weight 2023-07-20 10:05:00 65.772 kg [facility] BMI 2023-07-20 10:05:00 29.29 kg/m2 [facility] Systolic blood pressure 2023-07-07 12:34:00 109 mm[Hg] [facility] Diastolic blood pressure 2023-07-07 12:34:00 53 mm[Hg] [facility] Heart rate 2023-07-07 12:34:00 51 /min [facility] Body temperature 2023-07-07 12:34:00 35.94 Marichuy [facility] Respiratory rate 2023-07-07 12:34:00 19 /min [facility] Oxygen saturation in Arterial blood by Pulse oximetry 2023-07-07 12:34:00 98 /min [facility] Body weight 2023-07-07 08:27:00 61.961 kg [facility] BMI 2023-07-07 08:27:00 27.59 kg/m2 [facility] Body height 2023-07-05 18:35:00 149.9 cm [facility] Systolic blood pressure 2023-07-06 18:50:00 94 mm[Hg] [facility] Diastolic blood pressure 2023-07-06 18:50:00 57 mm[Hg] [facility] Heart rate 2023-07-06 18:50:00 59 /min [facility] Respiratory rate 2023-07-06 18:50:00 17 /min [facility] Oxygen saturation in Arterial blood by Pulse oximetry 2023-07-06 18:50:00 96 /min [facility] Body temperature 2023-07-06 17:52:00 36.06 Marichuy [facility] Body weight 2023-07-06 09:53:00 60.963 kg [facility] BMI 2023-07-06 09:53:00 27.59 kg/m2 [facility] Body height 2023-07-05 18:35:00 149.9 cm [facility] Systolic blood pressure 2023-02-05 15:49:00 101 mm[Hg] [facility] Diastolic blood pressure 2023-02-05 15:49:00 57 mm[Hg] [facility] Heart rate 2023-02-05 15:49:00 56 /min [facility] Respiratory rate 2023-02-05 15:49:00 14 /min [facility] Oxygen saturation in Arterial blood by Pulse oximetry 2023-02-05 15:49:00 99 /min [facility] Body temperature 2023-02-05 13:13:00 36.44 [facility] Body height 2023-02-05 13:13:00 149.9 cm [facility] Body weight 2023-02-05 13:13:00 65.772 kg [facility] BMI 2023-02-05 13:13:00 29.29 kg/m2 [facility] Procedures Procedure Date / Time Performed Performing Clinician Source ASSIGNMENT OF BENEFITS 2023-11-26 23:24:04 Docto r Unassigned, Goldenrod [facility] RAPID INFLUENZA A/B 2023-11-26 23:19:00 Nehal Akbar [facility] COVID-19 (ID NOW RAPID TESTING) 2023-11-26 23:19:00 Nehal Akbar [facility] CONSENT/REFUSAL FOR DIAGNOSIS AND TREATMENT 2023-11-26 22:49:10 Doctor Unassigned, [place]rod [facility] CT CHEST PULMONARY ANGIOGRAM 2023-07-20 13:19:03 Aurora Spencer [facility] TROPONIN I 2023-07-20 12:06:00 Alton Calderon [facility] EKG-12 LEAD 2023-07-20 12:02:47 Alton Calderon [facility] CT ABDOMEN PELVIS W CONTRAST 2023-07-20 10:36:59 Alton Calderon [facility] LIPASE 2023-07-20 10:11:00 Alton Calderon [facility] TROPONIN I 2023-07-20 10:11:00 Alton Calderon [facility] COMP. METABOLIC PANEL ([id number]) 2023-07-20 10:11:00 Alton Calderon [facility] CBC WITH DIFF 2023-07-20 10:11:00 Alton Calderon [facility] BASIC METABOLIC PANEL (NA, K, CL, CO2, GLUCOSE, BUN, CREATININE, CA) 2023-07-07 09:12:00 Abeba [facility] CBC WITH DIFF 2023-07-07 09:12:00 [facility] BASIC METABOLIC PANEL (NA, K, CL, CO2, GLUCOSE, BUN, CREATININE, CA) 2023-07-07 09:12:00 Abeba [facility] CBC WITH DIFF 2023-07-07 09:12:00 AbebaLaci mccullough [facility] LAPAROSCOPIC CHOLECYSTECTOMY 2023-07-06 15:42:00 Britt [facility] UMBILICAL HERNIORRHAPHY 2023-07-06 15:42:00 Clover Mcmahon [facility] LAPAROSCOPIC CHOLECYSTECTOMY 2023-07-06 15:42:00 Britt [facility] UMBILICAL HERNIORRHAPHY 2023-07-06 15:42:00 Clover Mcmahon [facility] TRANSTHORACIC ECHO (TTE) COMPLETE W/ CONTRAST 2023-07-06 13:34:15 Abena Parma [facility] TRANSTHORACIC ECHO (TTE) COMPLETE W/ CONTRAST 2023-07-06 13:34:15 Pushpa Kraft [facility] MAGNESIUM 2023-07-06 09:52:00 Pushpa Kraft [facility] COMP. METABOLIC PANEL ([id number]) 2023-07-06 09:52:00 [facility] 2023-07-06 09:52:[address] [facility] MAGNESIUM 2023-07-06 09:52:00 Pushpa Kraft [facility] COMP. METABOLIC PANEL ([id number]) 2023-07-06 09:52:00 [facility] 2023-07-06 09:52:00 Pushpa Kraft [facility] GALL BLADDER 2023-07-05 14:00:00 James De Jesus [facility] GALL BLADDER 2023-07-05 14:00:00 James De Jesus [facility] POCT TEST 2023-07-05 13:31:00 Chasity De Jesus [facility] POCT TEST 2023-07-05 13:31:00 Chasity De Jesus [facility] LIPASE 2023-07-05 13:28:[address] [facility] THYROID STIMULATING HORMONE 2023-07-05 13:28:00 [facility] COMP. METABOLIC PANEL ([id number]) 2023-07-05 13:28:00 James De Jesus [facility] CBC WITH DIFF 2023-07-05 13:28:00 James De Jesus [facility] URINALYSIS 2023-07-05 13:28:[address] [facility] LIPASE 2023-07-05 13:28:[address] [facility] THYROID STIMULATING HORMONE 2023-07-05 13:28:00 [facility] COMP. METABOLIC PANEL ([id number]) 2023-07-05 13:28:00 James De Jesus [facility] CBC WITH DIFF 2023-07-05 13:28:00 James De Jesus [facility] URINALYSIS 2023-07-05 13:28:[address] [facility] CONSENT/REFUSAL FOR DIAGNOSIS AND TREATMENT 2023-07-05 12:44:38 Doctor Unassigned, [place]rod [facility] CONSENT/REFUSAL FOR DIAGNOSIS AND TREATMENT 2023-07-05 12:44:38 Doctor Unassigned, [place]rod [facility] EKG-12 LEAD 2023-02-05 15:29:55 Nirmal Aceves [facility] LIPASE 2023-02-05 13:24:00 Nirmal Aceves [facility] TEST, SERUM 2023-02-05 13:24:00 Tiago Aceves [facility] TROPONIN I 2023-02-05 13:24:00 Nirmal Aceves [facility] COMP. METABOLIC PANEL ([id number]) 2023-02-05 13:24:00 Nirmal Aceves [facility] CBC WITH DIFF 2023-02-05 13:24:00 [facility] FOR [facility]AG[facility] AND TREATMENT 2023-02-05 13:07:07 Doctor Unassigned, [place]rod [facility] Encounters Start Date/Time End Date/Time Encounter Type Admission Type Attending [facility] Care Facility Care Department Encounter ID Source 2023-11-26 17:17:00 2023-11-26 18:30:00 Emergency [id number] 2023-11-26 17:17:00 2023-11-26 18:30:00 Emergency Nehal Akbar [facility] [id number] [facility] 2023-07-28 13:15:00 2023-07-28 13:15:00 Outpatient SHERICE FUENTES [facility] [id number] [facility] 2023-07-20 04:58:00 2023-07-20 09:33:00 Emergency X [facility]ORA SPENC[facility] [id number] [facility] 2023-07-20 04:58:00 2023-07-20 09:33:00 Emergency Alton Calderon Donnell [facility] [id number] [facility] 2023-07-05 07:53:00 2023-07-07 11:30:00 [facility] [id number] [facility] 2023-07-05 07:53:00 2023-07-07 11:30:00 [facility] [id number] [facility] [facility] 2023-07-06 11:25:00 2023-07-06 13:54:00 Surgery Sherice Mcmahon [facility] [place] [id number] [id number] [id number] [id number] [facility] 2023-02-22 10:41:58 2023-02-22 10:41:58 Outpatient [facility] [id number] Ankit Son Beka 2023-02-11 15:43:26 2023-02-11 15:43:26 Outpatient [facility] [id number] Ankit Son Beka 2023-02-05 08:10:00 2023-02-05 10:52:00 Emergency [facility] [id number] [facility] 2023-02-05 08:10:00 2023-02-05 10:52:00 Emergency Nirmal Aceves [facility] [id number] [id number] [facility] Results Test Description Test Time Test Comments Results Result Co mments Source [facility] WITH [id number] 11:29:39* Test Item Value Reference Range Interpretation [...] 32.8 g/dL 31.6-35.1 RDW-SD (test code = 27157-2) 47.2 fL 39.0-49.9 RDW-CV (test code = 788-0) 14.8 % 12.0-15.5 PLT (test code = 777-3) 368 See_Comment H [Automated messa ge] The system which generated this result transmitted reference range: 166 - 358 10*3/?L. The reference range was not used to interpret this result as normal/abnormal. MPV (test code = 20201-8) 10.5 fL 9.5-12.9 NRBC/100 WBC (test code = 5323912682) 0.0 See_Comment [Automated me ssage] The system which generated this result transmitted reference range: 0.0 - 10.0 /100 WBCs. The reference range was not used to interpret this result as normal/abnormal. NRBC x10^3 (test code = 1092513820) See_Comment [Automated messa ge] The system which generated this result transmitted reference range: 10*3/?L. The reference range was not used to interpret this result as normal/abnormal. GRAN MAT (NEUT) % (test code = 770-8) 52.8 % IMM GRAN % (test code = 6895867329) 0.30 % LYMPH % (test code = 736-9) 40.0 % MONO % (test code = 5905-5) 4.9 % EOS % (test code = 713-8) 1.3 % BASO % (test code = 706-2) 0.7 % GRAN MAT x10^3(ANC) (test code = 3895474806) 5.66 10*3/uL 1.88-7.09 IMM GRAN x10^3 (test code = 3218045399) 0.03 10*3/uL 0.00-0.06 LYMPH x10^3 (test code = 731-0) 4.29 10*3/uL 1.32-3.29 H MONO x10^3 (test code = 742-7) 0.53 10*3/uL 0.33-0.92 EOS x10^3 (test code = 711-2) 0.14 10*3/uL 0.03-0.39 BASO x10^3 (test code = 704-7) 0.08 10*3/uL 0.01-0.07 H Lab Interpretation (test code = 29323-4) [id number] 11:00:29* Test Item Value Reference Range Interpretation Comme nts TROPONIN I (test code = 2330472170) 0.001 ng/mL <=0.034 CHINO (test code = [...] of biotin. Lab Interpretation (test code = 97903-2) Normal [facility]. METABOLIC PANEL (83702)2023-07-20 10:48:47* Test Item Value Reference Range Interpretation Comme nts NA (test code = 8581282606) 137 mmol/L 135-145 K (test code = 5955325195) 3.5 mmol/L 3.5-5.0 CL (test code = 2894269919) 107 mmol/L 98-108 CO2 TOTAL (test code = 8809444730) 21 mmol/L 23-31 L AGAP (test code = 4298189849) 9 2-16 BUN (test code = 5455992447) 13 mg/dL 7-23 GLUCOSE (test code = 7475448389) 109 mg/dL 70-110 CREATININE (test code = 7506517989) 0.70 mg/dL 0.50-1.04 TOTAL BILI (test code = 1373968733) 0.1 mg/dL 0.1-1.1 CALCIUM (test code = 8112722337) 8.8 mg/dL 8.6-10.6 T PROTEIN (test code = 2450966547) 7.1 g/dL 6.3-8.2 ALBUMIN (test code = 7378241394) 4.1 g/dL 3.5-5.0 ALK PHOS (test code = 1617709625) 58 U/L 34-122 ALTv (test code = 1742-6) 20 U/L 5-35 AST(SGOT) (test code = 9297343218) 27 U/L 13-40 eGFR (test code = 6775665060) 92.7 mL/min/1.73m2 CHINO (test code = CHINO) [...] imaging tests). Lab Interpretation (test code = 86160-4) [facility] 10[facility]48:31* Test Item Value Reference Range Interpretation Comme nts LIPASE (test code = 2224850863) 79 U/L 0-220 Lab Interpretation (test cod e = 84605-5) Normal [facility] MET[facility]OLIC PANEL (96283)2023-07-06 11:53:10* Test Item Value Reference Range Interpretation Comme nts NA (test code = 9467951152) 139 mmol/L 135-145 K (test code = 2739466933) 4.1 mmol/L 3.5-5.0 CL (test code = 6075444811) 112 mmol/L 98-108 H CO2 TOTAL (test code = 5974914942) 22 mmol/L 23-31 L AGAP (test code = 1905471504) 5 2-16 BUN (test code = 5639143663) 8 mg/dL 7-23 GLUCOSE (test code = 0696395471) 85 mg/dL 70-110 CREATININE (test code = 5889025346) 0.67 mg/dL 0.50-1.04 TOTAL BILI (test code = 8396342103) 0.1-1.1 L CALCIUM (test code = 7782522263) 7.8 mg/dL 8.6-10.6 L T PROTEIN (test code = 5940676782) 5.3 g/dL 6.3-8.2 L ALBUMIN (test code = 8460523054) 3.1 g/dL 3.5-5.0 L ALK PHOS (test code = 6115742847) 48 U/L 34-122 ALTv (test code = 1742-6) 14 U/L 5-35 AST(SGOT) (test code = 4265058056) 27 U/L 13-40 eGFR (test code = 5710267789) 97.5 mL/min/1.73m2 CHINO (test code = CHINO) [...] imaging tests). Lab Interpretation (test code = 45636-2) Abnormal [facility]. METABOLIC PANEL (52943)2023-07-06 11:53:10* Test Item Value Reference Range Interpretation Comme nts NA (test code = 8824059985) 139 mmol/L 135-145 K (test code = 0454422080) 4.1 mmol/L 3.5-5.0 CL (test code = 0204734606) 112 mmol/L 98-108 H CO2 TOTAL (test code = 0313901481) 22 mmol/L 23-31 L AGAP (test code = 1032829217) 5 2-16 BUN (test code = 6773146132) 8 mg/dL 7-23 GLUCOSE (test code = 0611687696) 85 mg/dL 70-110 CREATININE (test code = 7333746436) 0.67 mg/dL 0.50-1.04 TOTAL BILI (test code = 8991371598) 0.1-1.1 L CALCIUM (test code = 9143308539) 7.8 mg/dL 8.6-10.6 L T PROTEIN (test code = 4459815235) 5.3 g/dL 6.3-8.2 L ALBUMIN (test code = 2767304190) 3.1 g/dL 3.5-5.0 L ALK PHOS (test code = 1451598816) 48 U/L 34-122 ALTv (test code = 1742-6) 14 U/L 5-35 AST(SGOT) (test code = 6240919711) 27 U/L 13-40 eGFR (test code = 5282001528) 97.5 mL/min/1.73m2 CHINO (test code = CHINO) [...] imaging tests). Lab Interpretation (test code = 64985-2) [facility]normal [facility] 11:52:29* Test Item Value Reference Range Interpretation Comme nts MAGNESIUM (test code = 1626041841) 1.9 mg/dL 1.7-2.4 Lab Interpretation (test cod e = 39498-3) [facility] 11:52:29* Test Item Value Reference Range Interpretation Comme nts MAGNESIUM (test code = 4626050405) 1.9 mg/dL 1.7-2.4 Lab Interpretation (test cod e = 79612-8) Normal [facility] with [id number] 11:13:08* Test Item Value Reference Range Interpretation Comme nts WBC (test code = 6690-2) 8.01 See_Comment [Automated [employer]] The system which generated this result transmitted reference range: 4.30 - 11.10 10*3/?L. The reference range was not used to interpret this result as normal/abnormal. RBC (test code = 789-8) 3.50 See_Comment L [Automated [facility] [place]] The system which generated this result transmitted [...] 32.8 g/dL 31.6-35.1 RDW-SD (test code = 13638-1) 48.2 fL 39.0-49.9 RDW-CV (test code = 788-0) 15.4 % 12.0-15.5 PLT (test code = 777-3) 236 See_Comment [Automated messa ge] The system which generated this result transmitted reference range: 166 - 358 10*3/?L. The reference range was not used to interpret this result as normal/abnormal. MPV (test code = 23454-8) 10.7 fL 9.5-12.9 NRBC/100 WBC (test code = 0693522908) 0.0 See_Comment [Automated [employer] ssage] The system which generated this result transmitted reference range: 0.0 - 10.0 /100 WBCs. The reference range was not used to interpret this result as normal/abnormal. NRBC x10^3 (test code = 8911034855) See_Comment [Automated messa ge] The system which generated this result transmitted reference range: 10*3/?L. The reference range was not used to interpret this result as normal/abnormal. GRAN MAT (NEUT) % (test code = 770-8) 45.3 % IMM GRAN % (test code = 2531317013) 0.40 % LYMPH % (test code = 736-9) 46.9 % MONO % (test code = 5905-5) 5.2 % EOS % (test code = 713-8) 1.6 % BASO % (test code = 706-2) 0.6 % GRAN MAT x10^3(ANC) (test code = 6955184314) 3.62 10*3/uL 1.88-7.09 IMM GRAN x10^3 (test code = 1532466742) 0.03 10*3/uL 0.00-0.06 LYMPH x10^3 (test code = 731-0) 3.76 10*3/uL 1.32-3.29 H MONO x10^3 (test code = 742-7) 0.42 10*3/uL 0.33-0.92 EOS x10^3 (test code = 711-2) 0.13 10*3/uL 0.03-0.39 BASO x10^3 (test code = 704-7) 0.05 10*3/uL 0.01-0.07 Lab Interpretation (test code = 40721-1) Abnormal [facility] with [id number] 11:13:08* Test Item Value Reference Range Interpretation [...] 32.8 g/dL 31.6-35.1 RDW-SD (test code = 86319-5) 48.2 fL 39.0-49.9 RDW-CV (test code = 788-0) 15.4 % 12.0-15.5 PLT (test code = 777-3) 236 See_Comment [Automated messa ge] The system which generated this result transmitted reference range: 166 - 358 10*3/?L. The reference range was not used to interpret this result as normal/abnormal. MPV (test code = 89934-0) 10.7 fL 9.5-12.9 NRBC/100 WBC (test code = 3827348758) 0.0 See_Comment [Automated [employer] ssage] The system which generated this result transmitted reference range: 0.0 - 10.0 /100 WBCs. The reference range was not used to interpret this result as normal/abnormal. NRBC x10^3 (test code = 8652468490) See_Comment [Automated messa ge] The system which generated this result transmitted reference range: 10*3/?L. The reference range was not used to interpret this result as normal/abnormal. GRAN MAT (NEUT) % (test code = 770-8) 45.3 % IMM GRAN % (test code = 8013334906) 0.40 % LYMPH % (test code = 736-9) 46.9 % MONO % (test code = 5905-5) 5.2 % EOS % (test code = 713-8) 1.6 % BASO % (test code = 706-2) 0.6 % GRAN MAT x10^3(ANC) (test code = 7532503171) 3.62 10*3/uL 1.88-7.09 IMM GRAN x10^3 (test code = 2444623754) 0.03 10*3/uL 0.00-0.06 LYMPH x10^3 (test code = 731-0) 3.76 10*3/uL 1.32-3.29 H MONO x10^3 (test code = 742-7) 0.42 10*3/uL 0.33-0.92 EOS x10^3 (test code = 711-2) 0.13 10*3/uL 0.03-0.39 BASO x10^3 (test code = 704-7) 0.05 10*3/uL 0.01-0.07 Lab Interpretation (test code = 47625-5) Abnormal [facility] [id number] 13:31:00* Test Item Value Reference Range Interpretation Comme nts POCT PREG (test code = 1605) Negative On board controls acceptable with C Line (test code = 3574) Yes POCT PREG LOT # (test code = 3575) [id number] POCT PREG TEST DATE ( test code = 3576) 11/17/2024 Lab Interpretation (test cod e = 69543-8) Normal [facility] [id number] 13:31:00* Test Item Value Reference Range Interpretation Comme nts POCT PREG (test code = 1605) Negative On board controls acceptable with C Line (test code = 3574) Yes POCT PREG LOT # (test code = 3575) [id number] POCT PREG TEST DATE ( test code = 3576) 11/17/2024 Lab Interpretation (test cod e = 62743-2) Normal [facility] Consult Notes Date/Time Note Provider Source 2023-07-05 21:41:59 Associated Order(s): [facility] Consult PCP: PATIENT DOES NOT HAVE A PCP Date of Service: 07/05/2023 CHIEF COMPLAINT/reason for consult: Bradycardia HISTORY OF PRESENT ILLNESS This is a 38 years old female with significant past medical history who presented to [facility] emergency room with epigastric pain. She was [...] Hypertension Father Cancer Brother 40 brain CA UT (myocardial infarction) Paternal Grandfather ALLERGIES Allergies Allergen [...] further assistance. Payton Ibarra MD, FACC, DOREEN Broom Stitcher Division of Cardiovascular Medicine [facility] 2023-07-05 10:20:54 Formatting of this n ote [...] 2009). Family History: Patient's family history includes UT (myocardial infarction) in her paternal grandfather. Social [...] Patient was discussed with the attending surgeon production generalist. Laci Us MD 07/05/2023 10:21 Associated attestation [...] discussed with patient Sherice Mcmahon MD ELISA-SURGERY [facility] History and Physical Notes Date/Time Note Provider Source 2023-07-05 18:05:46 Formatting of this n ote is different from the original. [facility] Hospital[facility] Admission H&P Date of Service: 07/05/2023 [...] Hypertension Father Cancer Brother 40 brain CA UT (myocardial infarction) Paternal Grandfather SOCIAL HISTORY Social [...] portal vein was evaluated with color Doppler. Electrical And Instrumentation Mechanic images were obtained for the record. COMPARISON: [...] Report Dictated by Resident: Tommy Mcmanus I, Danica Walters MD., have reviewed this study and [...] Tobacco user?: Former smoker, Present Vapor Observation [facility] was viewed during this stay BERTHA Marcos [...] care. Pushpa Kraft MD 07/05/2023 8:16 PM [facility] - Health Notes Date/Time Note Provider Source 2023-11-26 18:30:25 PT D/C home. GCS15, VS stable. Given D/C paperwork. Pt ambulatory at time of discharge. Pt educated on med usage, follow up care, s/s worsening condition, need for hydration. Pt verbalized understanding. Pt ambulated from ED with family in NAD BILLING SPECIALIST Lynne Morrissey RN [facility] 2023-11-26 17:13:32 Patient states: "I'm having body aches, headache. Everything hurts. I have one daughter with covid and one daughter with flu. I'm trying to keep everyone apart." BILLING SPECIALIST Naomi Moncada RN [facility] 2023-07-20 06:54:52 Formatting of this n ote might be different from the original. Report to Randee EUBANKS Joyce rPo RN [facility] 2023-07-20 04:59:49 Formatting of this n ote might be different from the original. Pt arrived c/o chest pain and abdominal pain in midsternal/right side of chest, URQ of abdomen, and right side of back. Pain began at 0330, and comes and goes. Pain 10. Pt had her gallbladder removed and hernia repaired three weeks ago. 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 Pain began at 0330, and comes and goes. Pain 4/10. Pt had her gallbladder removed and hernia repaired three weeks ago. PMH: Ovarian cyst 2007 Original note by Rosana Celaya RN at 07/20/2023 05:04 Chief Complaint Patient presents with Chest Pain History of present illness HPI 38 yo woman comes to the ED complaining of epigastric abdominal pain, right sided chest pain. Patient is s/p lap choly and umbilical hernia repair. Denies fever, chills, nausea or vomiting. Past Medical and Social History Past Medical History: Diagnosis Date Alcohol abuse Recurrent pyelonephritis Tetanus received in last 5 years: Unknown Childhood immunizations: Up-to-date Social History Tobacco Use Smoking status: Former Packs/day: 0.30 Years: 10.00 Additional pack years: 0.00 Total pack years: 3.00 Types: Cigarettes Smokeless tobacco: Never Tobacco comments: half packet a day, vapes. Vaping Use Vaping Use: Every day Substance Use Topics Alcohol use: Not Currently Comment: 6 pack every other day Drug use: No Past Surgical History Past Surgical History: Procedure Laterality Date BREAST SURGERY LAPAROSCOPIC CHOLECYSTECTOMY N/A 07/06/2023 Surgeon: Sherice Mcmahon MD; Location: [facility] PARTIAL REMOVAL OF OVARY(S) Bilateral 2009 2/2 cysts TUBAL LIGATION UMBILICAL HERNIORRHAPHY N/A 07/06/2023 Surgeon: Sherice Mcmahon MD; Location: [facility] OR LOCATION Medications Medications iopamidol (ISOVUE 370-500 mL) injection 100 mL (100 mL Intravenous Given 07/20/23 0614) FENTanyl PF (SUBLIMAZE (PF)) injection 50 mcg (50 mcg Slow IV Push Given 07/20/23 9114) NaCl 0.9% (NS) bolus infusion 1,000 mL (1,000 mL IV Infusion New Bag 07/20/23 8427) Allergies Allergies Allergen Reactions Tramadol Anxiety and Hallucinations Review of Systems Review of Systems Constitutional: Negative. HENT: Negative. Eyes: Negative. Respiratory: Negative. Cardiovascular: Positive for chest pain. Gastrointestinal: Positive for abdominal pain. Negative for abdominal distention. Genitourinary: Negative. Musculoskeletal: Negative. Skin: Negative. Neurological: Negative. Psychiatric/Behavioral: Negative. Endocrine: Endocrine negative Physical Exam BP 122/60 | Pulse 57 | Temp 36.1 ?C (97 ?F) (Oral) | Resp 13 | Ht 1.499 m (4' 11") | Wt 65.8 kg (145 lb) | SpO2 99% | BMI 29.29 kg/m? Physical Exam Vitals and nursing note reviewed. Constitutional: General: She is not in acute distress. Appearance: She is well-developed and normal weight. She is not ill-appearing. HENT: Head: Normocephalic and atraumatic. Right Ear: External ear normal. Left Ear: External ear normal. Nose: Nose normal. No congestion or rhinorrhea. Mouth/Throat: Pharynx: No oropharyngeal exudate or posterior oropharyngeal erythema. Eyes: General: Right eye: No discharge. Left eye: No discharge. Conjunctiva/sclera: Conjunctivae normal. Pupils: Pupils are equal, round, and reactive to light. Cardiovascular: Rate and Rhythm: Normal rate and regular rhythm. Heart sounds: Normal heart sounds. No murmur heard. No friction rub. Pulmonary: Effort: Pulmonary effort is normal. No respiratory distress. Breath sounds: Normal breath sounds. No stridor. No wheezing or rhonchi. Abdominal: General: Bowel sounds are normal. There is no distension. Palpations: Abdomen is soft. There is no mass. Tenderness: There is abdominal tenderness. Hernia: No hernia is present. Musculoskeletal: General: No swelling, tenderness, deformity or signs of injury. Normal range of motion. Cervical back: Normal range of motion and neck supple. No rigidity or tenderness. Skin: General: Skin is warm. Capillary Refill: Capillary refill takes less than 2 seconds. Coloration: Skin is not jaundiced or pale. Findings: No bruising or erythema. Neurological: General: No focal deficit present. Mental Status: She is alert and oriented to person, place, and time. Cranial Nerves: No cranial nerve deficit. Sensory: No sensory deficit. Motor: No weakness. Coordination: Coordination normal. Psychiatric: Mood and Affect: Mood normal. Behavior: Behavior normal. Thought Content: Thought content normal. Judgment: Judgment normal. Labs and Studies Lab Results CBC WITH DIFF - Abnormal Result Value Ref Range WBC 10.73 4.30 - 11.10 10*3/?L RBC 3.98 3.93 - 5.25 10*6/?L HGB 11.3 (*) 11.6 - 15.0 g/dL HCT 34.4 (*) 35.7 - 45.2 % MCV 86.4 80.6 - 95.5 fL MCH 28.4 25.9 - 32.8 pg MCHC 32.8 31.6 - 35.1 g/dL RDW-SD 47.2 39.0 - 49.9 fL RDW-CV 14.8 12.0 - 15.5 % PLT 368 (*) 166 - 358 10*3/?L MPV 10.5 9.5 - 12.9 fL NRBC/100 WBC 0.0 0.0 - 10.0 /100 WBCs NRBC x10^3 <0.01 10*3/?L GRAN MAT (NEUT) % 52.8 % IMM GRAN % 0.30 % LYMPH % 40.0 % MONO % 4.9 % EOS % 1.3 % BASO % 0.7 % GRAN MAT x10^3(ANC) 5.66 1.88 - 7.09 10*3/uL IMM GRAN x10^3 0.03 0.00 - 0.06 10*3/uL LYMPH x10^3 4.29 (*) 1.32 - 3.29 10*3/uL MONO x10^3 0.53 0.33 - 0.92 10*3/uL EOS x10^3 0.14 0.03 - 0.39 10*3/uL BASO x10^3 0.08 (*) 0.01 - 0.07 10*3/uL COMP. METABOLIC PANEL (16209) - Abnormal NA 137 135 - 145 mmol/L K 3.5 3.5 - 5.0 mmol/L CL 107 98 - 108 mmol/L CO2 TOTAL 21 (*) 23 - 31 mmol/L AGAP 9 2 - 16 BUN 13 7 - 23 mg/dL GLUCOSE 109 70 - 110 mg/dL CREATININE 0.70 0.50 - 1.04 mg/dL TOTAL BILI 0.1 0.1 - 1.1 mg/dL CALCIUM 8.8 8.6 - 10.6 mg/dL T PROTEIN 7.1 6.3 - 8.2 g/dL ALBUMIN 4.1 3.5 - 5.0 g/dL ALK PHOS 58 34 - 122 U/L ALTv 20 5 - 35 U/L AST(SGOT) 27 13 - 40 U/L eGFR 92.7 mL/min/1.73m2 LIPASE - Normal LIPASE 79 0 - 220 U/L TROPONIN I - Normal TROPONIN I 0.001 <=0.034 ng/mL TROPONIN I CT ABDOMEN PELVIS W CONTRAST Final Result ORDERING PHYSICIAN: ALTON CALDERON CLINICAL HISTORY: Abdominal distention COMPARISON: None available. TECHNIQUE: Helical CT images of the abdomen and pelvis obtained with IV contrast. CT scan performed according to ALARA (As low as reasonably achievable) principles. FINDINGS: Heart size is normal. Lower lungs are clear. There are no effusions. The liver, pancreas, spleen, and adrenals are unremarkable. Kidneys are unremarkable. The bladder is unremarkable. The appendix is normal. Uterus and adnexa are unremarkable. The bones are unremarkable. Trace fluid is in the pelvis. IMPRESSION No acute inflammatory process in the abdomen or pelvis Normal appendix Trace fluid in the pelvis, likely physiologic No dilated loops of bowel or bowel wall thickening No hydronephrosis RL: 5252 Orders and Treatments Orders Placed This Encounter Procedures CT ABDOMEN PELVIS W CONTRAST CBC WITH DIFF COMP. METABOLIC PANEL (44283) LIPASE TROPONIN I TROPONIN I Orders Placed This Encounter Medications iopamidol (ISOVUE 370-500 mL) injection 100 mL FENTanyl PF (SUBLIMAZE (PF)) injection 50 mcg NaCl 0.9% (NS) bolus infusion 1,000 mL Patient's Medications START taking these medications No medications on file CONTINUE taking these medications which have NOT CHANGED DICYCLOMINE 20 MG TABLET Take 1 tablet by mouth 4 (four) times daily. FAMOTIDINE (PEPCID) 40 MG TABLET Take 1 tablet by mouth in the morning and 1 tablet in the evening. ONDANSETRON 4 MG TABLET 1-2 tablets every 8 hours as needed for nausea SUCRALFATE 1 GRAM TABLET Take 1 tablet by mouth before meals and at bedtime. START taking Modified Medications as Prescribed No medications on file STOP taking these medications No medications on file Procedures EKG-12 Lead ROUTINE ONCE Date/Time: 07/20/2023 6:12 AM Performed by: Alton Calderon MD Authorized by: Alton Calderon MD ECG reviewed by ED Physician in the absence of a shaker plate operator: yes Previous ECG: Previous ECG: Unavailable Interpretation: Interpretation: non-specific Rate: ECG rate: 62 ECG rate assessment: normal Rhythm: Rhythm: sinus rhythm Ectopy: Ectopy: none QRS: QRS axis: Normal QRS intervals: Normal Details: IRBBB ST segments: ST segments: Normal T waves: T waves: normal Q waves: Abnormal Q-waves: not present Evidence Care No notes of EC Admission Criteria type on file. MDM & Notes Patient was evaluated for an emergency medical condition related to Chest Pain . History and/or review of systems is limited by:History limited: None. Medical Decision Making 38 yo woman comes to the ED complaining of epigastric abdominal pain, right sided chest pain. Patient is s/p lap choly and umbilical hernia repair. Denies fever, chills, nausea or vomiting. DDx chest pain/ post lap-choly/ gastritis AP CBC, chemistry, EKG, CT scan abdomen/pelvis Problems Addressed: Chest pain, unspecified type: acute illness or injury S/P cholecystectomy: acute illness or injury Amount and/or Complexity of Data Reviewed Labs: ordered. Decision-making details documented in ED Course. Radiology: ordered and independent interpretation performed. Decision-making details documented in ED Course. ECG/medicine tests: ordered and independent interpretation performed. Decision-making details documented in ED Course. Discussion of management or test interpretation with external provider(s): No acute findings on CT scan Normal cardiac enzymes IVF and IV pain medications. Pending repeat Trop. Currently normal VS, normal O2 and HR. Signed out to incoming physician pending 2nd troponin and reevaluation. Risk Prescription drug management. Parenteral controlled substances. Diagnosis/Impression as of 07/20/23702 Chest pain, unspecified type S/P cholecystectomy Case discussed with: none Barriers & Social Determinants of Healthcare: Limitations to patient care and compliance: none. Assessment: Tayo Veras is a 38 year old female presenting for single complaint(s) listed below and mentioned within the note. The patient has acute condition(s). Follow up with providers listed below for further evaluation and management. Return precautions given if symptoms worsen as documented in the discharge instructions. History, physical exam findings, results of visit, differential diagnosis, medication regimens and plan of future care have been considered. Additional MDM may be found in the ED course. Differential diagnosis considered and final disposition made based on information gathered during evaluation and may not be completely ruled out or specifically listed. Vital signs were rechecked before final disposition and determined to be stable. Diagnoses ICD-10-CM 1. Chest pain, unspecified type R07.9 2. S/P cholecystectomy Z90.49 Disposition and Condition ED Disposition None Patient's Medications START taking these medications No medications on file CONTINUE taking these medications which have NOT CHANGED DICYCLOMINE 20 MG TABLET Take 1 tablet by mouth 4 (four) times daily. FAMOTIDINE (PEPCID) 40 MG TABLET Take 1 tablet by mouth in the morning and 1 tablet in the evening. ONDANSETRON 4 MG TABLET 1-2 tablets every 8 hours as needed for nausea SUCRALFATE 1 GRAM TABLET Take 1 tablet by mouth before meals and at bedtime. START taking Modified Medications as Prescribed No medications on file STOP taking these medications No medications on file Future Appointments In 2 days Sherice Mcmahon MD [facility] Surgery, [facility] Alton Calderon MD, FACEP, FAAEM [employer] Manager of Emergency and Internal Medicine [facility], [id number] Alton Calderon MD 07/20/23702 [facility] 2023-07-20 04:53:00 Formatting of this n ote might be different from the original. The patient is a 38-year-old female who presents for chest pain. She recently underwent cholecystectomy and hernia repair by Dr. Mcmahon. She presents with pleuritic type chest pain. CT of the abdomen pelvis was negative for any postsurgical complication. Hematological and chemistry studies are within acceptable limits. I evaluated the patient at shift change. EKG done prior to my responsibility of the patient did not demonstrate any acute ischemia or ectopy. I ordered CT of the chest to rule out a PE. It was negative. She was given a GI cocktail and Toradol. She had some minor relief of pain. She was instructed to abstain from vaping until she gets better. She expressed understanding verbally. She is also to eat a healthy diet. She can return for any questions or concerns. Aurora Spencer MD 07/20/23926 T [facility] EMERGENCY PHYSICIAN STAFF [facility] 2023-07-07 11:19:18 Formatting of this n ote might be different from the original. Problem: Infection Risk Goal: Absence of infection 07/07/2023 1119 by Summer Pablo RN Outcome: Adequate for discharge 07/07/2023 1118 by Summer Pablo RN Outcome: Adequate for discharge 07/07/2023 1118 by Summer Pablo RN Outcome: Adequate for discharge [facility] Summer Pablo RN [facility] 2023-07-07 11:18:47 Formatting of this n ote might be different from the original. Problem: Infection Risk Goal: Absence of infection Outcome: Adequate for discharge [facility] 2023-07-06 21:52:47 Formatting of this n ote might be different from the original. Problem: Infection Risk Goal: Absence of infection Outcome: Progressing as expected Problem: Pain Goal: Control of pain at or below patient's documented comfort goal Outcome: Progressing as expected Goal: Reduction in pain sensation Outcome: Progressing as expected Problem: Nausea/Vomiting Goal: Absence of nausea/vomiting Outcome: Progressing as expected Problem: Venous Thromboembolism, (actual or risk of) Goal: Absence of venous thromboembolism (Risk) Outcome: Progressing as expected Problem: Discharge Planning Goal: Adequate for discharge Outcome: Progressing as expected Goal: Effective communication Outcome: Progressing as expected Chiquita Barker RN [facility] 2023-07-06 17:38:00 Formatting of this n ote might be different from the original. Problem: Infection Risk Goal: Absence of infection Outcome: Progressing as expected Problem: Pain Goal: Control of pain at or below patient's documented comfort goal Outcome: Progressing as expected Goal: Reduction in pain sensation Outcome: Progressing as expected Problem: Nausea/Vomiting Goal: Absence of nausea/vomiting Outcome: Progressing as expected Problem: Venous Thromboembolism, (actual or risk of) Goal: Absence of venous thromboembolism (Risk) Outcome: Progressing as expected Problem: Discharge Planning Goal: Adequate for discharge Outcome: Progressing as expected Goal: Effective communication Outcome: Progressing as expected Altagracia Savage RN [facility] 2023-07-06 11:25:35 Formatting of this n ote is different from the original. BRIEF OPERATIVE NOTE Date of Surgery: 07/06/2023 Surgeon(s) and Role: * Sherice Mcmahon MD - Primary * Laci Us MD - Resident - Assisting Pre-Op Diagnosis: Biliary colic [K80.50] Post-Op Diagnosis Codes: * Biliary colic [K80.50] Procedures: Procedure(s) (LRB): LAPAROSCOPIC CHOLECYSTECTOMY (N/A) UMBILICAL HERNIORRHAPHY (N/A) CPT: 05396, UTMBCODINGHE, Any Complications Encounters: None Estimated Blood Loss: 5 cc Specimens Removed: ID Type Source Tests Collected by Time Destination 1 : Tissue GALLBLADDER SURGICAL PATHOLOGY EXAM Sherice Mcmahon MD 07/06/2023 1234 * No implants in log * Patient's Condition: Stable Findings: Cholelithiasis without acute cholecystitis Any other important information: Stable for discharge with follow up in 2 weeks Tylenol 650 mg and Motrin 400 mg TID with [place] 5 TID PRN No heavy lifting or submerging wound for 4 weeks Shower daily Allow dressings to peel off on their own Please see dictated operative report for additional detail. [facility] 2023-07-05 21:12:34 Formatting of this n ote might be different from the original. Problem: Infection Risk Goal: Absence of infection Outcome: Progressing as expected Problem: Pain Goal: Control of pain at or below patient's documented comfort goal Outcome: Progressing as expected Goal: Reduction in pain sensation Outcome: Progressing as expected Problem: Nausea/Vomiting Goal: Absence of nausea/vomiting Outcome: Progressing as expected Problem: Venous Thromboembolism, (actual or risk of) Goal: Absence of venous thromboembolism (Risk) Outcome: Progressing as expected Problem: Discharge Planning Goal: Adequate for discharge Outcome: Progressing as expected Goal: Effective communication Outcome: Progressing as expected Mandie Lorenzo RN [facility] 2023-07-05 17:08:42 Formatting of this n ote might be different from the original. Problem: Pain Goal: Control of pain at or below patient's documented comfort goal Outcome: Progressing as expected Goal: Reduction in pain sensation Outcome: Progressing as expected Problem: Nausea/Vomiting Goal: Absence of nausea/vomiting Outcome: Progressing as expected Problem: Venous Thromboembolism, (actual or risk of) Goal: Absence of venous thromboembolism (Risk) Outcome: Progressing as expected Problem: Discharge Planning Goal: Adequate for discharge Outcome: Progressing as expected Goal: Effective communication Outcome: Progressing as expected [facility] 2023-07-05 13:01:34 Formatting of this n ote might be different from the original. Nurse Report Report given to RAIMUNDO Marshall. Chief complaint, assessment findings, infusion verify and orders reviewed. Plan of care discussed with both nurses. Altagracia Moreno RN Altagracia Moreno RN [facility] 2023-07-05 12:52:59 Formatting of this n ote might be different from the original. Pt report given to RAIMUNDO Moreno. Niru Mae RN [facility] 2023-07-05 07:48:12 Formatting of this n ote might be different from the original. Epigastric discomfort all night. States she has gallbladder issues and is supposed to have surgery but doesn't have money so she just takes meds. Has "nausea, acid and something for the lining of my stomach". Katia Diaz RN [facility]
[2025-02-14] MEDS ORDERED: DIAZEPAM 5 MG TABLET ONE (08:48)
[2025-02-14] MEDS ORDERED: KETOROLAC 30 MG/ML INJ ONE (08:48)
[2025-02-14 08:58] LABS: Specific Gravity > 1.030 (1.005-1.030); Urine Bacteria <20 /HPF (<20); Urine Bilirubin NEGATIVE (Negative); Urine Blood Negative (Negative); Urine Clarity Turbid (Clear); Urine Color Yellow (Yellow); Urine Culture Reflex Order NOT NEEDED; Urine Glucose NEGATIVE (Negative); Urine Ketones NEGATIVE (Negative); Urine Micro Reflex YN NO BILL MICROSCOPIC; Urine Mucus 2+ /HPF (None Seen); Urine Nitrite NEGATIVE (Negative); Urine Protein TRACE (Negative); Urine RBC <5 /HPF (None Seen); Urine Urobilinogen 1+ (Normal); Urine WBC <5 /HPF (<5); Urine pH 5.5 (5.0-7.0)
--- NOTE | 2025-02-14 09:29 | ER ---
Nurse's Notes [facility] Name: Carmelita Veras Age: 40 yrs Sex: Female : 1985 Arrival Date: 02/14/2025 Time: 08:21 Bed 19 Private MD: None, None Diagnosis: Low back pain Presentation: 02/14 08:31 Chief complaint: Patient states: R lower back pain for 2 days. Coronavirus screen: ll1 Client denies travel out of the [place] in the last 14 days. At this time, the client does not indicate any symptoms associated with coronavirus-19. Ebola Screen: Patient denies travel to an Ebola-affected area in the 21 days before illness onset. Initial Sepsis Screen: Does the patient meet any 2 criteria? No. Patient's initial sepsis screen is negative. Does the patient have a suspected source of infection? No. Patient's initial sepsis screen is negative. Risk Assessment: Do you want to hurt yourself or someone else? Patient reports no desire to harm self or others. Onset of symptoms was February 13, 2025. 08:31 Method Of Arrival: Ambulatory 1 08:31 Acuity: JOSEFINA 3 ll1 Triage Assessment: 08:32 General: Appears uncomfortable, Behavior is calm, cooperative, appropriate for age. ll1 Pain: Complains of pain in back Quality of pain is described as aching. Musculoskeletal: Reports pain in back. Historical: - Allergies: 08:25 Tramadol HCl; ll1 - PMHx: 08:25 Kidney stones; Ovarian cyst; ll1 - PSHx: 08:25 Cholecystectomy; ll1 - Immunization history:: Adult Immunizations up to date. - Infectious Disease History:: Denies. - Social history:: Smoking status: Patient denies any tobacco usage or history of. Screenin:52 [facility] ED Fall Risk Assessment (Adult) History of falling in the last 3 months, kc6 including since admission No falls in past 3 months (0 pts) Confusion or Disorientation No (0 pts) Intoxicated or Sedated No (0 pts) Impaired Gait No (0 pts) Mobility Assist Device Used No (0 pt) Altered Elimination No (0 pt) Score/Fall Risk Level 0 - 2 = Low Risk Oriented to surroundings, Maintained a safe environment. Abuse screen: Denies threats or abuse. Denies injuries from another. Nutritional screening: No deficits noted. Tuberculosis screening: No symptoms or risk factors identified. Assessment: 08:52 General: Appears in no apparent distress. uncomfortable, well groomed, well developed, kc6 Behavior is calm, cooperative, appropriate for age. Pain: Complains of pain in lumbar area, left low back and right low back. Neuro: Level of Consciousness is awake, alert, obeys commands, Oriented to person, place, time, situation, Appropriate for age. Cardiovascular: Capillary refill < 3 seconds. Respiratory: Airway is patent Trachea midline Respiratory effort is even, unlabored, Respiratory pattern is regular, symmetrical. GI: No signs and/or symptoms were reported involving the gastrointestinal system. : No signs and/or symptoms were reported regarding the genitourinary system. EENT: No signs and/or symptoms were reported regarding the EENT system. Derm: No signs and/or symptoms reported regarding the dermatologic system. Skin is intact, is healthy with good turgor, Skin is pink, warm \T\ dry. Musculoskeletal: Circulation, motion, and sensation intact. Range of motion: intact in all extremities. 09:43 Reassessment: Patient appears in no apparent distress at this time. No changes from kc6 previously documented assessment. Patient and/or family updated on plan of care and expected duration. Pain level reassessed. Patient is alert, oriented x 3, equal unlabored respirations, skin warm/dry/pink. Vital Signs: 08:31 BP 111 / 61; Pulse 65; Resp 16; Temp 98.4; Pulse Ox 97% on R/A; Weight 67.13 kg; Height ll1 4 ft. 11 in. ; Pain 10/10; 08:31 Body Mass Index 29.89 (67.13 kg, 149.86 cm) ll1 08:31 Pain Scale: Adult ll1 ED Course: 08:23 Patient arrived in ED. as 08:25 Dion Bautista DO is Attending Physician. ms3 08:25 Arm band placed on Patient placed in an exam room, on a stretcher. ll1 08:26 None, None is Private Physician. as 08:29 Denisha Meneses, RAIMUNDO is Primary Nurse. kc6 08:32 Triage completed. ll1 08:52 Patient has correct armband on for positive identification. Bed in low position. Call kc6 light in reach. Side rails up X 1. Pulse ox on. NIBP on. Door closed. Noise minimized. Lights dimmed. Pillow given. Verbal reassurance given. 08:52 Urine collected: clean catch specimen, clear. Patient maintains SpO2 saturation greater kc6 than 95% on room air. 09:22 Amado Goodman DO is Referral Physician. ms3 09:43 No provider procedures requiring assistance completed. Patient did not have IV access kc6 during this emergency room visit. Administered Medications: 08:52 Drug: Diazepam PO 5 mg PO once Route: PO; kc6 09:42 Follow up: Response: No adverse reaction; RASS: Alert and Calm (0) kc6 08:52 Drug: Ketorolac IM 15 mg IM once Route: IM; Site: right deltoid; kc6 09:42 Follow up: Response: No adverse reaction kc6 Medication: :43 VIS not applicable for this client. kc6 Outcome: :29 Discharge ordered by MD. ms3 09:43 Discharged to home ambulatory, with family, kc6 09:43 Condition: good 09:43 Discharge instructions given to patient, Instructed on discharge instructions, follow up and referral plans. no drinking with medication, no driving heavy equipment, medication usage, Demonstrated understanding of instructions, follow-up care, medications, Prescriptions given X 2, 09:43 Patient left the ED. kc6 Signatures: Rosemarie Gautam Lynsay, RN RN ll1 Dion Bautista DO DO ms3 Denisha Meneses, RN RN kc6
--- NOTE | 2025-02-14 09:29 | EDPHYS ---
Physician Documentation [facility] Name: Carmelita Veras Age: 40 yrs Sex: Female : 1985 Arrival Date: 02/14/2025 Time: 08:21 Bed 19 Private MD: None, None ED Physician Dion Bautista HPI: 02/14 10:24 This 40 yrs old Female presents to ER via Ambulatory with complaints of Low ms3 Back Pain. 10:24 40-year-old female with past medical history of kidney stones, ovarian cyst presents to [facility] the emergency department for low back pain. Patient states she bent over and felt like something popped in her back. Patient states this has been happening daily since Wednesday. Patient is applied a heating pad without relief. Patient states her discomfort is 7/10. Patient notes she did take a hot shower prior to arrival that did help her pain.. Historical: - Allergies: 08:25 Tramadol HCl; ll1 - PMHx: 08:25 Kidney stones; Ovarian cyst; ll1 - PSHx: 08:25 Cholecystectomy; ll1 - Immunization history:: Adult Immunizations up to date. - Infectious Disease History:: Denies. - Social history:: Smoking status: Patient denies any tobacco usage or history of. ROS: 10:24 Constitutional: Negative for fever, and chills. Cardiovascular: Negative for chest ms3 pain, and palpitations. Respiratory: Negative for shortness of breath, cough, wheezing, and pleuritic chest pain, Abdomen/GI: Negative for abdominal pain, nausea, vomiting, diarrhea, and constipation, MS/Extremity: Negative for injury and deformity, 10:24 Back: Positive for Back pain, Exam: 10:24 Constitutional: This is a well developed, well nourished patient who is awake, alert, ms3 and in no acute distress. Cardiovascular: Regular rate and rhythm with a normal S1 and S2. No gallops, murmurs, or rubs. Normal PMI, no JVD. No pulse deficits. Respiratory: Lungs have equal breath sounds bilaterally, clear to auscultation and percussion. No rales, rhonchi or wheezes noted. No increased work of breathing, no retractions or nasal flaring. Abdomen/GI: Soft, non-tender, with normal bowel sounds. No distension or tympany. No guarding or rebound. No evidence of tenderness throughout. 10:24 Back: pain, that is moderate, of the right low back, normal spinal alignment noted, CVA tenderness, is absent, vertebral tenderness, is not appreciated, muscle spasm, is appreciated in the right low back, Vital Signs: 08:31 BP 111 / 61; Pulse 65; Resp 16; Temp 98.4; Pulse Ox 97% on R/A; Weight 67.13 kg; Height ll1 4 ft. 11 in. ; Pain 08/24; 08:31 Body Mass Index 29.89 (67.13 kg, 149.86 cm) ll1 08:31 Pain Scale: Adult ll1 MDM: 08:38 Medical Screening Exam initiated ms3 14:56 Differential diagnosis: arthritis, strain, sciatica, Herniated disc UTI. Data reviewed: ms3 vital signs, nurses notes, lab test result(s), urinalysis, and as a result, I will discharge patient. I considered the following discharge prescriptions or medication management in the emergency department Medications were administered in the Emergency Department. See MAR. Counseling: I had a detailed discussion with the patient and/or guardian regarding the historical points, exam findings, and any diagnostic results supporting the discharge/admit diagnosis, lab results, the need for outpatient follow up, to return to the emergency department if symptoms worsen or persist or if there are any questions or concerns that arise at home. Special discussion: I discussed with the patient/guardian in detail that at this point there is no indication for admission to the hospital. It is understood, however, that if the symptoms persist or worsen the patient needs to return immediately for re-evaluation. ED course: On reevaluation patient symptoms improved, patient is alert and oriented x 4, no apparent distress, nontoxic-appearing, speaking full sentences. Patient is without urinary or bowel incontinence or retention, numbness, weakness. Patient to follow-up with her primary care physician in 2 to 3 days. Patient understands and agrees with plan. All questions were answered. Return precautions discussed include worsening symptoms, or any other concerns. 02/14 08:27 Order name: Urinalysis W/Microscopic; Complete Time: 09:14 ms3 Administered Medications: 08:52 Drug: Diazepam PO 5 mg PO once Route: PO; kc6 09:42 Follow up: Response: No adverse reaction; RASS: Alert and Calm (0) 6 08:52 Drug: Ketorolac IM 15 mg IM once Route: IM; Site: right deltoid; kc6 09:42 Follow up: Response: No adverse reaction kc6 Disposition Summary: 02/14/25 09:29 Discharge Ordered Notes: Location: Home ms3 Condition: Stable ms3 Diagnosis - Low back pain ms3 Followup: ms3 - With: Amado Goodman, - When: 2 - 3 days - Reason: Recheck today's complaints Discharge Instructions: - Discharge Summary Sheet ms3 - Acute Back Pain, Adult ms3 Forms: - Medication Reconciliation Form ms3 - Antibiotic Education ms3 - Prescription Opioid Use ms3 - Patient Portal Instructions ms3 - Leadership Thank You Letter ms3 - Work release form kc6 Prescriptions: - Ibuprofen 600 mg Oral Tablet - take 1 tablet ORAL route every 6 hours As needed take with food; 30 tablet; ms3 Refills: 0, Product Selection Permitted - Cyclobenzaprine 5 mg Oral Tablet - take 1 tablet ORAL route 3 times per day As needed; 15 tablet; Refills: 0, ms3 Product Selection Permitted Signatures: Dispatcher [employer] EDMS Kennedi Reyes, RN RN ll1 Dion Bautista DO DO ms3 Denisha Meneses RN RN kc6 Corrections: (The following items were deleted from the chart) 10:26 10:24 Constitutional: This is a well developed, well nourished patient who is awake, ms3 alert, and in no acute distress. Cardiovascular: Regular rate and rhythm with a normal S1 and S2. No gallops, murmurs, or rubs. Normal PMI, no JVD. No pulse deficits. Respiratory: Lungs have equal breath sounds bilaterally, clear to auscultation and percussion. No rales, rhonchi or wheezes noted. No increased work of breathing, no retractions or nasal flaring. Abdomen/GI: Soft, non-tender, with normal bowel sounds. No distension or tympany. No guarding or rebound. No evidence of tenderness throughout. ms3 10:26 10:24 Back: pain, that is moderate, ms3 ms3
[2025-02-14 09:48] VITALS: BP 111/61; TEMP 98.4; O2SAT 97
== END 2025-02-14 09:43 | disposition home or self-care (01) ==
LOC: ER 08:21
DX: M54.50 Low back pain, unspecified (principal); Z87.442 Personal history of urinary calculi
CPT/HCPCS: 81001; 96372; 99284

== ENCOUNTER 2025-03-18 14:53 | Emergency (ER) | payer SELFPAY ==
--- OUTSIDE RECORDS SUMMARY | 2025-03-18 14:59 | XMS REPORT | Continuity of Care Document ---
Author Name Unknown Address [address] [facility] [place] [address] [facility] Address [address] [place] [address] Care Team Providers Care Candy Catcher Name Role Phone PCP, PATIENT DOES NOT HAVE A Primary Care Physic flora Unavailable NEHAL AKBAR Attending Clinician Unavailab Nehal Chase Attending Clinician [phone] SHERICE MCMAHON Attending Clinician Unavailable SHERICE MCMAHON Attending Clinician Unavailable AURORA SPENCER Attending Clinician Unavailable Alton Calderon MD Attending Clinician [phone] Aurora Spencer MD Attending Clinician [phone] PUSHPA KRAFT Attending Clinician Unavailable James De Jesus DO Attending Clinician [phone] Pushpa Kraft MD Attending Clinician [phone] NIRMAL ACEVES Attending Clinician UnavailNirmal Ruiz MD Attending Clinician + [phone] AURORA SPENCER Admitting Clinician Unavailable PUSHPA KRAFT Admitting Clinician Unavailable Pushpa Kraft MD Admitting Clinician [phone] NIRMAL ACEVES Admitting Clinician Unavailsherita cordero Payers Payer Name Policy Type Policy Number Effective Date Expirati on Date Source [employer] [id number] 2023 00:00:00 Problems Condition Name Condition Details Condition Category Status Onset Date Resolution Date Last Treatment Date Treating Clinician Comments Source Abnormal EKG Abnormal EKG Disease Active 07-06 00:00: 00 [facility] RUQ abdominal pain RUQ abdominal pain Disease Active 07-05 00:00: 00 [facility] Biliary colic Biliary colic Disease Active 07-05 00:00: 00 [facility] Sinus bradycardi a Sinus bradycardi a Disease Active 07-05 00:00: 00 [facility] Hepatomega ly Hepatomega ly Disease Active 2016-11 00:00: 00 Overview: Formattin g of this note might be different from the original. Tayo Veras is a 32 year old female with Alcohol abuse, with CT findings consisten t with hepatomeg dharmesh during hospital stay in 07/2017 [facility] Recurrent pyelonephr itis Recurrent pyelonephr itis Disease Active 07-19 00:00: 00 [facility] Alcohol abuse Alcohol abuse Disease Active [facility] Allergies, Adverse Reactions, Alerts Allergy Name Allergy Type Status Severity Reaction(s) Onset Date Inactive Date Treating Clinician Comments Source Tramadol Propensi ty to adverse reaction s to drug Active Hallucinatio ns 07-25 00:00: 00 [facility] TRAMADOL DRUG INGREDI Active Low Anxiety 07-25 00:00: 00 [facility] Social History Social Habit Start Date Stop Date Quantity Comments Source History of tobacco use Cigarette Smoker [facility] Alcohol intake 2023-07-20 00:00:00 2023-07-20 00:00:00 Ex-drinker (finding) [facility] History of Social function 2023-07-20 00:00:00 2023-07-20 00:00:00 [facility] Cigarettes smoked current (pack per day) - Reported 2023-07-05 00:00:00 2023-07-05 00:00:00 [facility] Cigarette pack-years 2023-07-05 00:00:00 2023-07-05 00:00:00 [facility] Tobacco use and exposure 2023-07-05 00:00:00 2023-07-05 00:00:00 Smokeless tobacco non-user [facility] Tobacco Comment 2023-07-05 00:00:00 2023-07-05 00:00:00 half packet a day, vapes. [facility] Exposure to SARS-CoV-2 (event) 2023-01-26 00:00:00 2023-02-05 08:12:00 Not sure [facility] Alcohol Comment 2017-07-26 00:00:00 2017-07-26 00:00:00 6 pack every other day [facility] Sex Assigned At 1985 00:00:00 1985 00:00:00 [facility] Smoking Status Start Date Stop Date Source Ex-smoker 2023-07-05 00:00:00 2023-07-05 00:00:00 [facility] Medications Ordered Medication Name Filled Medication Name Start Date Stop Date Current Medication? Ordering Clinician Indication Dosage Frequency Signature (SIG) Comments Components Source ondansetron 4 mg disintegrat ing tablet 11-26 00:00: 00 11-26 00:00 :00 No [id number] 4mg Take 1 tablet by mouth every 8 (eight) hours as needed for Nausea and Vomiting (N/V) for up to 5 days. [facility] benzonatate 100 mg capsule 11-26 00:00: 00 11-26 00:00 :00 No [id number] 100mg Take 1 capsule by mouth 3 (three) times daily as needed for Cough. [facility] albuterol 90 mcg/actuati on inhaler 11-26 00:00: 00 11-26 00:00 :00 No [id number] 2{puff} Inhale 2 Puffs every 4 (four) hours as needed for Wheezing or Shortness of Breath. [facility] nirmatrelvi r-ritonavir 300 mg (150 mg x 2)-100 mg tablet 11-26 00:00: 00 11-26 00:00 :00 No [id number] 3{tbl} Take 3 tablets by mouth in the morning and 3 tablets in the evening. [facility] ketorolac (TORADOL) injection 30 mg 07-20 14:30: 00 07-20 13:55 :00 No 30mg 30 mg, Slow IV Push, ONCE, 1 dose, On Wed07/20/23 at 0930, JUANITA [facility] iopamidol (ISOVUE 370-500 mL) injection 75 mL 07-20 14:15: 00 07-20 14:15 :00 No [id number] 75mL 75 mL, Intravenou s, ONCE, 1 dose, On Wed07/20/23 at 0915, Routine [facility] maalox:diph enhydrAMINE :lidocaine 2 % viscous 1:1:1 ([facility] oral suspension 15 mL 07-20 14:00: 00 07-20 13:51 :00 No 15mL 15 mL, Oral, ONCE, 1 dose, On Wed07/20/23 at 0900, JUANITA [facility] FENTanyl PF (SUBLIMAZE (PF)) injection 50 mcg 07-20 11:30: 00 07-20 10:46 :00 No 50ug 50 mcg, Slow IV Push, ONCE, 1 dose, On Wed07/20/23 at 0630, Routine [facility] iopamidol (ISOVUE 370-500 mL) injection 100 mL 07-20 11:30: 00 07-20 11:30 :00 No [id number] 100mL 100 mL, Intravenou s, ONCE, 1 dose, On Wed07/20/23 at 0630, Routine [facility] NaCl 0.9% (NS) bolus infusion 1,000 mL 07-20 11:00: 00 07-20 12:06 :00 No 1000mL at 999 mL/hr, 1,000 mL, IV Infusion, ONCE, 1 dose, On Wed07/20/23 at 0600, STAT [facility] famotidine (PEPCID) 40 mg tablet 07-07 11:34: 06 Yes 40mg Take 1 tablet by mouth in the morning and 1 tablet in the evening. [facility] phenoL (SORE THROAT (PHENOL)) 1.4 % spray bottle 1 Joanna 07-07 09:21: 46 Yes 1{spray } 1 Joanna, Oral, PRN, Starting on Wed07/07/23 at 0421, Until Discontinu ed, Routine, Sore throat [facility] benzocaine (HURRICAINE ONE) 20 % mucosal spray 1 Joanna 07-07 04:45: 00 07-07 05:15 :00 No 1{spray } 1 Joanna, Oral, ONCE, 1 dose, On Wed07/06/23 at 2345, Routine [facility] HYDROcodone -acetaminop hen 5-325 mg tablet 07-07 00:00: 00 07-13 04:59 :00 No [id number] 1{tbl} Take 1 tablet by mouth every 6 (six) hours as needed for Pain (scale 4-6) for up to 5 days. Indication s: acute pain [facility] ketorolac (TORADOL) injection 15 mg 07-06 23:00: 00 07-09 22:59 :00 No 15mg 15 mg, Slow IV Push, Q6H, 12 doses, First dose on Wed07/06/23 at 1800, Last dose on Wed07/09/23 at 1200, Routine [facility] pantoprazol e (PROTONIX) injection 40 mg 07-06 21:30: 00 07-06 20:46 :00 No 40mg 40 mg, Slow IV Push, ONCE, 1 dose, On Wed07/06/23 at 1630 [facility] proMETHazin e (PHENERGAN) 12.5 mg in NaCl 0.9% (NS) 50 mL IV piggyback 07-06 20:21: 45 Yes 12.5mg 12.5 mg, IV Piggyback, Q4HPRN, Starting on Wed07/06/23 at 1521, Until Discontinu ed, Routine, N/V unresponsi ve to oral antiemetic s [facility] HYDROcodone -acetaminop hen (NORCO 5) 5-325 mg tablet 1 tablet 07-06 18:00: 00 07-06 18:32 :00 No 1{tbl} 1 tablet, Oral, ONCE, 1 dose, On Wed07/06/23 at 1300, Routine, PACU [facility] ondansetron (ZOFRAN (PF)) injection 4 mg 07-06 17:47: 57 07-06 18:13 :00 No 4mg 4 mg, Slow IV Push, PRN, 1 dose, Starting on Wed07/06/23 at 1247, Until Wed07/06/23 at 1313, Routine, Nausea and Vomiting (N/V), PACU [facility] FENTanyl PF (SUBLIMAZE (PF)) injection 25 mcg 07-06 17:47: 57 07-06 19:33 :10 No 25ug 25 mcg, Slow IV Push, Q5MIN PRN, 4 doses, Starting on Wed07/06/23 at 1247, Until Wed07/06/23 at 1433, Routine, Pain (scale 4-6), PACU [facility] bupivacaine (preserv free) (SENSORCAIN E MPF) 0.25 % (2.5 mg/mL) injection 07-06 16:42: 00 07-06 17:55 :05 No PRN, Starting on Wed07/06/23 at 1142, Until Wed07/06/23 at 1255, Routine, Intra-op [facility] sodium chloride 0.9 % irrigation solution 07-06 16:39: 00 07-06 17:55 :05 No PRN, Starting on Wed07/06/23 at 1139, Until Wed07/06/23 at 1255, Intra-op [facility] lactated ringers IV infusion 1,000 mL 07-06 14:15: 00 07-06 14:08 :00 No 1000mL at 42 mL/hr, 1,000 mL, IV Infusion, ONCE, 1 dose, On Wed07/06/23 at 0915, Routine, DSU Pre-op [facility] sulfur hexafluorid e microsphr (LUMASON) injection 5 mL 07-06 13:45: 00 07-06 13:45 :00 No [id number] 5mL 5 mL, Intravenou s, ONCE, 1 dose, On Wed07/06/23 at 0845, Routine
vulcan crewmember approving Restricted medication : SHAY SELLERS [facility] famotidine (PEPCID AC) tablet 40 mg 07-06 01:00: 00 Yes 40mg 40 mg, Oral, BID, First dose on Wed07/05/23 at 2000, Until Discontinu ed, Routine [facility] enoxaparin (LOVENOX) injection 40 mg 07-05 22:00: 00 Yes 40mg 40 mg, Subcutaneo us, DAILY, First dose on Wed07/05/23 at 1700, Until Discontinu ed, Routine [facility] NaCl 0.9% (NS) IV infusion 1,000 mL 07-05 19:45: 00 07-06 23:18 :58 No 1000mL at 125 mL/hr, IV Infusion, CONTINUOUS , Starting on Wed07/05/23 at 1445, Until Wed07/06/23 at 1818, Routine [facility] ondansetron (ZOFRAN (PF)) injection 4 mg 07-05 19:42: 11 Yes 4mg 4 mg, Slow IV Push, Q6HPRN, Starting on Wed07/05/23 at 1442, Until Discontinu ed, Routine, Nausea and Vomiting (N/V) [facility] morpHINE (2 mg/mL) injection 4 mg 07-05 [...] Wed07/07/23 at 1441, Routine, Pain (scale 4-6) [facility] acetaminoph en (TYLENOL) tablet 650 mg 07-05 19:41: 59 Yes 650mg 650 mg, Oral, Q6HPRN, Starting on Wed07/05/23 at 1441, Until Discontinu ed, Routine, Pain (scale 1-3), Temp > 38 C [facility] ondansetron (ZOFRAN (PF)) injection 4 mg 07-05 14:30: 00 07-05 13:33 :00 No 4mg 4 mg, Slow IV Push, ONCE, 1 dose, On Wed07/05/23 at 0930, Routine [facility] morpHINE (4 mg/mL) injection 4 mg 07-05 13:22: 44 07-05 19:43 :31 No 4mg 4 mg, Slow IV Push, Q4HPRN, Starting on Wed07/05/23 at 0822, Until Wed07/05/23 at 1443, Routine, Pain (scale 7-10) [facility] dicyclomine 20 mg tablet 07-05 00:00: 00 Yes [id number] 20mg Take 1 tablet by mouth 4 (four) times daily. [facility] NaCl 0.9% (NS) bolus infusion 1,000 mL 02-05 14:15: 00 02-05 15:49 :00 No 1000mL at 999 mL/hr, 1,000 mL, IV Infusion, ONCE, 1 dose, On Wed02/05/23 at 0915, JUANITA [facility] maalox:diph enhydrAMINE :lidocaine 2 % viscous 1:1:1 (FIRST-MOUT [facility]) oral suspension 15 mL 02-05 14:00: 00 02-05 13:56 :00 No 15mL 15 mL, Oral, ONCE, 1 dose, On Wed02/05/23 at 0900, [facility] ondansetron (ZOFRAN (PF)) injection 8 mg 02-05 13:30: 00 02-05 13:30 :00 No 8mg 8 mg, Slow IV Push, ONCE, 1 dose, On Wed02/05/23 at 0830, [facility] famotidine (PEPCID (PF)) injection 20 mg 02-05 13:30: 00 02-05 13:32 :00 No 20mg 20 mg, Slow IV Push, ONCE, 1 dose, On Wed02/05/23 at 0830, [facility] ondansetron 4 mg tablet 02-05 00:00: 00 Yes [id number] 1-2 tablets every 8 hours as needed for nausea [facility] sucralfate 1 gram tablet 02-05 00:00: 00 Yes [id number] 1g Take 1 tablet by mouth before meals and at bedtime. [facility] acetaminoph en-codeine 300-30 mg tablet 01-03 00:00: 02-05 00:00 :00 No [id number] 1{tbl} Take 1 tablet by mouth every 4 (four) hours as needed for Pain (scale 4-6) (Cough). [facility] ibuprofen 600 mg tablet 01-03 00:00: 02-05 00:00 :00 No [id number] 600mg Take 1 tablet by mouth 3 (three) times daily with meals. [facility] levoFLOXaci n 750 mg tablet 04-06 00:00: 00 02-05 00:00 :00 No 750mg Take 1 tablet by mouth daily. [facility] acetaminoph en-codeine (TYLENOL-CO DEINE #3) 300-30 mg tablet 04-06 00:00: 02-05 00:00 :00 No 1{tbl} Take 1 tablet by mouth every 8 (eight) hours as needed for Pain (scale 4-6). [facility] proMETHazin e 25 mg tablet 04-06 00:00: 00 02-05 00:00 :00 No 25mg Take 1 tablet by mouth every 6 (six) hours as needed for Nausea and Vomiting (N/V). [facility] HYDROcodone -acetaminop hen 5-325 mg tablet 1-29 00:00: 00 02-05 00:00 :00 No 1{tbl} Take 1 tablet by mouth every 6 (six) hours as needed for Pain (scale 7-10). [facility] Lactobacill us acidophilus (PROBIOTIC) 10 billion cell capsule 07-27 00:00: 00 02-05 00:00 :00 No 1{capsu le} Take 1 capsule by mouth daily. Take at least 2 hours after morning dose of antibiotic s before taking probiotic [facility] Vital Signs Vital Name Observation Time Observation Value Comments S ource Systolic blood pressure 2023-11-26 23:14:00 103 mm[Hg] [facility] Diastolic blood pressure 2023-11-26 23:14:00 71 mm[Hg] [facility] Heart rate 2023-11-26 23:14:00 75 /min [facility] Body temperature 2023-11-26 23:14:00 37.61 Marichuy [facility] Respiratory rate 2023-11-26 23:14:00 16 /min [facility] Body height 2023-11-26 23:14:00 149.9 cm [facility] Body weight 2023-11-26 23:14:00 74.844 kg [facility] BMI 2023-11-26 23:14:00 33.33 kg/m2 [facility] Oxygen saturation in Arterial blood by Pulse oximetry 2023-11-26 23:14:00 100 /min [facility] Systolic blood pressure 2023-07-20 14:00:00 107 mm[Hg] [facility] Diastolic blood pressure 2023-07-20 14:00:00 54 mm[Hg] [facility] Heart rate 2023-07-20 14:00:00 52 /min [facility] Respiratory rate 2023-07-20 14:00:00 17 /min [facility] Oxygen saturation in Arterial blood by Pulse oximetry 2023-07-20 14:00:00 97 /min [facility] Body temperature 2023-07-20 10:05:00 36.11 Marichuy [facility] Body height 2023-07-20 10:05:00 149.9 cm [facility] Body weight 2023-07-20 10:05:00 65.772 kg [facility] BMI 2023-07-20 10:05:00 29.29 kg/m2 [facility] Systolic blood pressure 2023-07-07 12:34:00 109 mm[Hg] [facility] Diastolic blood pressure 2023-07-07 12:34:00 53 mm[Hg] [facility] Heart rate 2023-07-07 12:34:00 51 /min [facility] Body temperature 2023-07-07 12:34:00 35.94 Marichuy [facility] Respiratory rate 2023-07-07 12:34:00 19 /min [facility] Oxygen saturation in Arterial blood by Pulse oximetry 2023-07-07 12:34:00 98 /min [facility] Body weight 2023-07-07 08:27:00 61.961 kg [facility] BMI 2023-07-07 08:27:00 27.59 kg/m2 [facility] Body height 2023-07-05 18:35:00 149.9 cm [facility] Systolic blood pressure 2023-07-06 18:50:00 94 mm[Hg] [facility] Diastolic blood pressure 2023-07-06 18:50:00 57 mm[Hg] [facility] Heart rate 2023-07-06 18:50:00 59 /min [facility] Respiratory rate 2023-07-06 18:50:00 17 /min [facility] Oxygen saturation in Arterial blood by Pulse oximetry 2023-07-06 18:50:00 96 /min [facility] Body temperature 2023-07-06 17:52:00 36.06 Marichuy [facility] Body weight 2023-07-06 09:53:00 60.963 kg [facility] BMI 2023-07-06 09:53:00 27.59 kg/m2 [facility] Body height 2023-07-05 18:35:00 149.9 cm [facility] Systolic blood pressure 2023-02-05 15:49:00 101 mm[Hg] [facility] Diastolic blood pressure 2023-02-05 15:49:00 57 mm[Hg] [facility] Heart rate 2023-02-05 15:49:00 56 /min [facility] acute hospital Respiratory rate 2023-02-05 15:49:00 14 /min [facility] Oxygen saturation in Arterial blood by Pulse oximetry 2023-02-05 15:49:00 99 /min [facility] Body temperature 2023-02-05 13:13:00 36.44 [facility] Body height 2023-02-05 13:13:00 149.9 cm [facility] Body weight 2023-02-05 13:13:00 65.772 kg [facility] BMI 2023-02-05 13:13:00 29.29 kg/m2 [facility] Procedures Procedure Date / Time Performed Performing Clinician Source ASSIGNMENT OF BENEFITS 2023-11-26 23:24:04 Docto r Unassigned, [place] [facility] RAPID INFLUENZA A/B 2023-11-26 23:19:00 Nehal Akbar [facility] COVID-19 (ID NOW RAPID TESTING) 2023-11-26 23:19:00 Nehal Akbar [facility] CONSENT/REFUSAL FOR DIAGNOSIS AND TREATMENT 2023-11-26 22:49:10 Doctor Unassigned, [place] [facility] CT CHEST PULMONARY ANGIOGRAM 2023-07-20 13:19:03 Aurora Spencer [facility] TROPONIN I 2023-07-20 12:06:00 Alton Calderon [facility] EKG-12 LEAD 2023-07-20 12:02:47 Alton Calderon [facility] CT ABDOMEN PELVIS W CONTRAST 2023-07-20 10:36:59 Alton Calderon [facility] LIPASE 2023-07-20 10:11:00 Alton Calderon [facility] TROPONIN I 2023-07-20 10:11:00 Alton Calderon [facility] COMP. METABOLIC PANEL ([id number]) 2023-07-20 10:11:00 Alton Calderon [facility] CBC WITH DIFF 2023-07-20 10:11:00 Alton Calderon [facility] acute [facility] BASIC METABOLIC PANEL (NA, K, CL, CO2, GLUCOSE, BUN, CREATININE, CA) 2023-07-07 09:12:00 [facility] CBC WITH DIFF 2023-07-07 09:12:[address] [facility] [facility] BASIC METABOLIC PANEL (NA, K, CL, CO2, GLUCOSE, BUN, CREATININE, CA) 2023-07-07 09:12:00 Abeba [facility] CBC WITH DIFF 2023-07-07 09:12:00 AbebaLaci mccullough [facility] LAPAROSCOPIC CHOLECYSTECTOMY 2023-07-06 15:42:00 Britt [facility] UMBILICAL HERNIORRHAPHY 2023-07-06 15:42:00 Clover Mcmahon [facility] LAPAROSCOPIC CHOLECYSTECTOMY 2023-07-06 15:42:00 Britt [facility] UMBILICAL HERNIORRHAPHY 2023-07-06 15:42:00 Clover Mcmahon [facility] TRANSTHORACIC ECHO (TTE) COMPLETE W/ CONTRAST 2023-07-06 13:34:[address] [facility] TRANSTHORACIC ECHO (TTE) COMPLETE W/ CONTRAST 2023-07-06 13:34:15 Pushpa Kraft [facility] MAGNESIUM 2023-07-06 09:52:00 Pushpa Kraft [facility] COMP. METABOLIC PANEL ([id number]) 2023-07-06 09:52:00 [facility] 2023-07-06 09:52:00 Pushpa Kraft [facility] MAGNESIUM 2023-07-06 09:52:00 Pushpa Kraft [facility] COMP. METABOLIC PANEL ([id number]) 2023-07-06 09:52[facility] 2023-07-06 09:52:00 Pushpa Kraft [facility] GALL BLADDER 2023-07-05 14:00:00 James De Jesus [facility] GALL BLADDER 2023-07-05 14:00:00 James De Jesus [facility] POCT TEST 2023-07-05 13:31:00 Chasity De Jesus [facility] POCT TEST 2023-07-05 13:31:00 Chasity De Jesus [facility] LIPASE 2023-07-05 13:28:00 [facility] THYROID STIMULATING HORMONE 2023-07-05 13:28:00 [facility] COMP. METABOLIC PANEL ([id number]) 2023-07-05 13:28:00 James De Jesus [facility] CBC WITH DIFF 2023-07-05 13:28:00 James [facility] URINALYSIS 2023-07-05 13:28:00 [facility] LIPASE 2023-07-05 13:28:00 James De [facility] THYROID STIMULATING HORMONE 2023-07-05 13:28:00 [facility] COMP. METABOLIC PANEL ([id number]) 2023-07-05 13:28:00 James De Jesus [facility] CBC WITH DIFF 2023-07-05 13:28:00 James De Jesus [facility] URINALYSIS 2023-07-05 13:28:00 James De Jesus [facility] CONSENT/REFUSAL FOR DIAGNOSIS AND TREATMENT 2023-07-05 12:44:38 Doctor Unassigned, [place] [facility] CONSENT/REFUSAL FOR DIAGNOSIS AND TREATMENT 2023-07-05 12:44:38 Doctor Unassigned, [place] [facility] EKG-12 LEAD 2023-02-05 15:29:55 Nirmal Aceves [facility] LIPASE 2023-02-05 13:24:00 Nirmal Aceves [facility] TEST, SERUM 2023-02-05 13:24:00 Tiago Aceves [facility] TROPONIN I 2023-02-05 13:24:00 Nirmal Aceves [facility] COMP. METABOLIC PANEL ([id number]) 2023-02-05 13:24:00 Nirmal Aceves [facility] CBC WITH DIFF 2023-02-05 13:24:00 [facility] FOR [facility]AG[facility]IS AND TREATMENT 2023-02-05 13:07:07 Doctor Unassigned, [place] [facility] Encounters Start Date/Time End Date/Time Encounter Type Admission Type Attending [facility] Care Facility Care Department Encounter ID Source 2023-11-26 17:17:00 2023-11-26 18:30:00 Emergency X NEHAL AKBAR [facility] ERT [id number] [facility] 2023-11-26 17:17:00 2023-11-26 18:30:00 Emergency Nehal Akbar [facility] [id number] [facility] 2023-07-28 13:15:00 2023-07-28 13:15:00 Outpatient SHERICE FUENTES [facility] [id number] [facility] 2023-07-20 04:58:00 2023-07-20 09:33:00 Emergency X AURORA SPENCER [facility] ERT [id number] [facility] 2023-07-20 04:58:00 2023-07-20 09:33:00 Emergency Alton Calderon Donnell [facility] [id number] [facility] 2023-07-05 07:53:00 2023-07-07 11:30:00 [facility] [id number] 2023-07-05 07:53:00 2023-07-07 11:30:00 [facility] [id number] [facility] 2023-07-06 11:25:00 2023-07-06 13:54:00 Surgery Sherice Mcmahon [facility] [id number] [facility] 2023-02-22 10:41:58 2023-02-22 10:41:58 Outpatient [facility] [id number] Ankit Son Beka 2023-02-11 15:43:26 2023-02-11 15:43:26 Outpatient [facility] [id number] Ankit Son Beka 2023-02-05 08:10:00 2023-02-05 10:52:00 Emergency X NIRMAL ACEVES [facility] ERT [id number] [facility] 2023-02-05 08:10:00 2023-02-05 10:52:00 Emergency [facility] [facility] [id number] [facility] Results Test Description Test Time Test Comments Results Result Co mments Source [facility] WITH [id number] 11:29:39* Test Item Value Reference Range Interpretation [...] 32.8 g/dL 31.6-35.1 RDW-SD (test code = 54842-5) 47.2 fL 39.0-49.9 RDW-CV (test code = 788-0) 14.8 % 12.0-15.5 PLT (test code = 777-3) 368 See_Comment H [Automated messa ge] The system which generated this result transmitted reference range: 166 - 358 10*3/?L. The reference range was not used to interpret this result as normal/abnormal. MPV (test code = 09950-6) 10.5 fL 9.5-12.9 NRBC/100 WBC (test code = 9103848186) 0.0 See_Comment [Automated me ssage] The system which generated this result transmitted reference range: 0.0 - 10.0 /100 WBCs. The reference range was not used to interpret this result as normal/abnormal. NRBC x10^3 (test code = 6012999439) See_Comment [Automated messa ge] The system which generated this result transmitted reference range: 10*3/?L. The reference range was not used to interpret this result as normal/abnormal. GRAN MAT (NEUT) % (test code = 770-8) 52.8 % IMM GRAN % (test code = 8359072743) 0.30 % LYMPH % (test code = 736-9) 40.0 % MONO % (test code = 5905-5) 4.9 % EOS % (test code = 713-8) 1.3 % BASO % (test code = 706-2) 0.7 % GRAN MAT x10^3(ANC) (test code = 8438219390) 5.66 10*3/uL 1.88-7.09 IMM GRAN x10^3 (test code = 1993342362) 0.03 10*3/uL 0.00-0.06 LYMPH x10^3 (test code = 731-0) 4.29 10*3/uL 1.32-3.29 H MONO x10^3 (test code = 742-7) 0.53 10*3/uL 0.33-0.92 EOS x10^3 (test code = 711-2) 0.14 10*3/uL 0.03-0.39 BASO x10^3 (test code = 704-7) 0.08 10*3/uL 0.01-0.07 H Lab Interpretation (test code = 21166-5) [id number] 11:00:29* Test Item Value Reference Range Interpretation Comme nts TROPONIN I (test code = 7709179747) 0.001 ng/mL <=0.034 CHINO (test code = [...] of biotin. Lab Interpretation (test code = 51062-9) Normal [facility]. METABOLIC PANEL (16467)2023-07-20 10:48:47* Test Item Value Reference Range Interpretation Comme nts NA (test code = 6755125716) 137 mmol/L 135-145 K (test code = 2439900155) 3.5 mmol/L 3.5-5.0 CL (test code = 5066780097) 107 mmol/L 98-108 CO2 TOTAL (test code = 3983819346) 21 mmol/L 23-31 L AGAP (test code = 3015395927) 9 2-16 BUN (test code = 3847514906) 13 mg/dL 7-23 GLUCOSE (test code = 4942618268) 109 mg/dL 70-110 CREATININE (test code = 7705526357) 0.70 mg/dL 0.50-1.04 TOTAL BILI (test code = 6759247936) 0.1 mg/dL 0.1-1.1 CALCIUM (test code = 9740799844) 8.8 mg/dL 8.6-10.6 T PROTEIN (test code = 5036698488) 7.1 g/dL 6.3-8.2 ALBUMIN (test code = 9035404297) 4.1 g/dL 3.5-5.0 ALK PHOS (test code = 5797951418) 58 U/L 34-122 ALTv (test code = 1742-6) 20 U/L 5-35 AST(SGOT) (test code = 0544657784) 27 U/L 13-40 eGFR (test code = 4662480043) 92.7 mL/min/1.73m2 CHINO (test code = CIHNO) Association of Glomerular Filtration Rate (GFR) and [...] imaging tests). Lab Interpretation (test code = 61360-8) [facility]:31* Test Item Value Reference Range Interpretation Comme nts LIPASE (test code = 4030491435) 79 U/L 0-220 Lab Interpretation (test cod e = 23365-9) [facility]OLIC PANEL (92366)2023-07-06 11:53:10* Test Item Value Reference Range Interpretation Comme nts NA (test code = 5845968589) 139 mmol/L 135-145 K (test code = 9801609326) 4.1 mmol/L 3.5-5.0 CL (test code = 2581569460) 112 mmol/L 98-108 H CO2 TOTAL (test code = 5447842026) 22 mmol/L 23-31 L AGAP (test code = 5302223185) 5 2-16 BUN (test code = 9795692066) 8 mg/dL 7-23 GLUCOSE (test code = 9008541042) 85 mg/dL 70-110 CREATININE (test code = 2338113602) 0.67 mg/dL 0.50-1.04 TOTAL BILI (test code = 4177157090) 0.1-1.1 L CALCIUM (test code = 3055850111) 7.8 mg/dL 8.6-10.6 L T PROTEIN (test code = 4807400806) 5.3 g/dL 6.3-8.2 L ALBUMIN (test code = 5473861507) 3.1 g/dL 3.5-5.0 L ALK PHOS (test code = 0498280372) 48 U/L 34-122 ALTv (test code = 1742-6) 14 U/L 5-35 AST(SGOT) (test code = 0377522674) 27 U/L 13-40 eGFR (test code = 0891075498) 97.5 mL/min/1.73m2 CHINO (test code = CHINO) [...] imaging tests). Lab Interpretation (test code = 86783-1) Abnormal [facility]. METABOLIC PANEL (35965)2023-07-06 11:53:10* Test Item Value Reference Range Interpretation Comme nts NA (test code = 8099548198) 139 mmol/L 135-145 K (test code = 2430542600) 4.1 mmol/L 3.5-5.0 CL (test code = 3367074480) 112 mmol/L 98-108 H CO2 TOTAL (test code = 1727451722) 22 mmol/L 23-31 L AGAP (test code = 3745682275) 5 2-16 BUN (test code = 6745431585) 8 mg/dL 7-23 GLUCOSE (test code = 8515216335) 85 mg/dL 70-110 CREATININE (test code = 4400918052) 0.67 mg/dL 0.50-1.04 TOTAL BILI (test code = 8121894216) 0.1-1.1 L CALCIUM (test code = 6707560088) 7.8 mg/dL 8.6-10.6 L T PROTEIN (test code = 4784050411) 5.3 g/dL 6.3-8.2 L ALBUMIN (test code = 0745077599) 3.1 g/dL 3.5-5.0 L ALK PHOS (test code = 6893923611) 48 U/L 34-122 ALTv (test code = 1742-6) 14 U/L 5-35 AST(SGOT) (test code = 7614344725) 27 U/L 13-40 eGFR (test code = 9321965032) 97.5 mL/min/1.73m2 CHINO (test code = CHINO) [...] imaging tests). Lab Interpretation (test code = 43768-9) [facility] 11:52:29* Test Item Value Reference Range Interpretation Comme nts MAGNESIUM (test code = 2296724107) 1.9 mg/dL 1.7-2.4 Lab Interpretation (test cod e = 65188-9) Normal [facility] 11:52:29* Test Item Value Reference Range Interpretation Comme nts MAGNESIUM (test code = 8510930342) 1.9 mg/dL 1.7-2.4 Lab Interpretation (test cod e = 35271-8) [facility] with [id number] 11:13:08* Test Item Value Reference Range Interpretation Comme nts WBC (test code = 6690-2) 8.01 See_Comment [Automated myZamana] The system which generated this result transmitted reference range: 4.30 - 11.10 10*3/?L. The reference range was not used to interpret this result as normal/abnormal. RBC (test code = 789-8) 3.50 See_Comment L [Automated [employer]] The system which generated this result transmitted [...] 32.8 g/dL 31.6-35.1 RDW-SD (test code = 92782-0) 48.2 fL 39.0-49.9 RDW-CV (test code = 788-0) 15.4 % 12.0-15.5 PLT (test code = 777-3) 236 See_Comment [Automated messa ge] The system which generated this result transmitted reference range: 166 - 358 10*3/?L. The reference range was not used to interpret this result as normal/abnormal. MPV (test code = 05962-3) 10.7 fL 9.5-12.9 NRBC/100 WBC (test code = 4105691149) 0.0 See_Comment [Automated Kromek ssage] The system which generated this result transmitted reference range: 0.0 - 10.0 /100 WBCs. The reference range was not used to interpret this result as normal/abnormal. NRBC x10^3 (test code = 6333765325) See_Comment [Automated messa ge] The system which generated this result transmitted reference range: 10*3/?L. The reference range was not used to interpret this result as normal/abnormal. GRAN MAT (NEUT) % (test code = 770-8) 45.3 % IMM GRAN % (test code = 3424204514) 0.40 % LYMPH % (test code = 736-9) 46.9 % MONO % (test code = 5905-5) 5.2 % EOS % (test code = 713-8) 1.6 % BASO % (test code = 706-2) 0.6 % GRAN MAT x10^3(ANC) (test code = 6889687025) 3.62 10*3/uL 1.88-7.09 IMM GRAN x10^3 (test code = 8237284451) 0.03 10*3/uL 0.00-0.06 LYMPH x10^3 (test code = 731-0) 3.76 10*3/uL 1.32-3.29 H MONO x10^3 (test code = 742-7) 0.42 10*3/uL 0.33-0.92 EOS x10^3 (test code = 711-2) 0.13 10*3/uL 0.03-0.39 BASO x10^3 (test code = 704-7) 0.05 10*3/uL 0.01-0.07 Lab Interpretation (test code = 52012-5) Abnormal [facility] with [id number] 11:13:08* Test Item Value Reference Range Interpretation [...] 32.8 g/dL 31.6-35.1 RDW-SD (test code = 92599-2) 48.2 fL 39.0-49.9 RDW-CV (test code = 788-0) 15.4 % 12.0-15.5 PLT (test code = 777-3) 236 See_Comment [Automated messa ge] The system which generated this result transmitted reference range: 166 - 358 10*3/?L. The reference range was not used to interpret this result as normal/abnormal. MPV (test code = 17350-8) 10.7 fL 9.5-12.9 NRBC/100 WBC (test code = 6544715414) 0.0 See_Comment [Automated Kromek ssage] The system which generated this result transmitted reference range: 0.0 - 10.0 /100 WBCs. The reference range was not used to interpret this result as normal/abnormal. NRBC x10^3 (test code = 3139140494) See_Comment [Automated messa ge] The system which generated this result transmitted reference range: 10*3/?L. The reference range was not used to interpret this result as normal/abnormal. GRAN MAT (NEUT) % (test code = 770-8) 45.3 % IMM GRAN % (test code = 2364181003) 0.40 % LYMPH % (test code = 736-9) 46.9 % MONO % (test code = 5905-5) 5.2 % EOS % (test code = 713-8) 1.6 % BASO % (test code = 706-2) 0.6 % GRAN MAT x10^3(ANC) (test code = 8360548966) 3.62 10*3/uL 1.88-7.09 IMM GRAN x10^3 (test code = 9689299438) 0.03 10*3/uL 0.00-0.06 LYMPH x10^3 (test code = 731-0) 3.76 10*3/uL 1.32-3.29 H MONO x10^3 (test code = 742-7) 0.42 10*3/uL 0.33-0.92 EOS x10^3 (test code = 711-2) 0.13 10*3/uL 0.03-0.39 BASO x10^3 (test code = 704-7) 0.05 10*3/uL 0.01-0.07 Lab Interpretation (test code = 95659-0) Abnormal [facility] [id number] 13:31:00* Test Item Value Reference Range Interpretation Comme nts POCT PREG (test code = 1605) Negative On board controls acceptable with C Line (test code = 3574) Yes POCT PREG LOT # (test code = 3575) [id number] POCT PREG TEST DATE ( test code = 3576) 11/17/2024 Lab Interpretation (test cod e = 93183-6) Normal [facility] [id number] 13:31:00* Test Item Value Reference Range Interpretation Comme nts POCT PREG (test code = 1605) Negative On board controls acceptable with C Line (test code = 3574) Yes POCT PREG LOT # (test code = 3575) [id number] POCT PREG TEST DATE ( test code = 3576) 11/17/2024 Lab Interpretation (test cod e = 05545-7) Normal [facility] Consult Notes Date/Time Note Provider Source 2023-07-05 21:41:59 Associated Order(s): CONSULT CARDIOLOGY [facility] Cardiology Consult PCP: PATIENT DOES NOT HAVE A PCP Date of Service: 07/05/2023 CHIEF COMPLAINT/reason for consult: Bradycardia HISTORY OF PRESENT ILLNESS This is a 38 years old female with significant past medical history who presented to [facility] emergency room with epigastric pain. She was [...] Hypertension Father Cancer Brother 40 brain CA [place] (myocardial infarction) Paternal Grandfather ALLERGIES Allergies Allergen [...] of further assistance. Payton Ibarra MD, FACC, ODREEN Clinical Quality Analyst Division of Cardiovascular Medicine [facility] 2023-07-05 10:20:54 Formatting of this n [...] 2009). Family History: Patient's family history includes [place] (myocardial infarction) in her paternal grandfather. Social [...] Patient was discussed with the attending surgeon business control manager. Laci Us MD 07/05/2023 10:21 Associated attestation [...] discussed with patient Sherice Mcmahon MD ELISA-SURGERY [facility] - Health History and Physical Notes Date/Time Note Provider Source 2023-07-05 18:05:46 Formatting of this n ote is different from the original. [facility] Hospitalist Admission H&P Date of Service: [...] Hypertension Father Cancer Brother 40 brain [place] (myocardial infarction) Paternal Grandfather SOCIAL HISTORY Social [...] portal vein was evaluated with color Doppler. Habitat Conservation Planner images were obtained for the record. COMPARISON: [...] Tobacco user?: Former smoker, Present Vapor Observation [facility] was viewed during this stay BERTHA Marcos [...] ambulated from ED with family in NAD EPOINT DESIGNER DEVELOPER Lynne Morrissey RN [facility] 2023-11-26 17:13:32 Patient states: "I'm having body aches, headache. Everything hurts. I have one daughter with covid and one daughter with flu. I'm trying to keep everyone apart." EPOINT DESIGNER DEVELOPER Naomi Moncada RN [facility] 2023-07-20 06:54:52 Formatting of this n ote might be different from the original. Report to Randee EUBANKS Joyce Pro RN [facility] 2023-07-20 04:59:49 Formatting of this n ote might be different from the original. Pt arrived c/o chest pain and abdominal pain in midsternal/right side of chest, URQ of abdomen, and right side of back. Pain began at 0330, and comes and goes. Pain 10. Pt had her gallbladder removed and hernia repaired three weeks ago. PMH: Ovarian cyst 2007 Rosana Celaya RN [facility] 2023-07-20 04:53:00 Associated Order(s): EKG-12 Lead ROUTINE ONCE Pre-Procedure Diagnose(s): Chest pain, unspecified type; S/P cholecystectomy Post-Procedure Diagnose(s): Chest pain, unspecified type; S/P cholecystectomy [facility] Emergency Department Note Demographics Patient Name: Tayo Veras Date of : 1985 38 year old Treatment Room: TX3/TX3 Primary Care Physician: PATIENT DOES NOT HAVE A PCP Pre Hospital Care Patient Escorted by: Family [5] Mode of Arrival: Personal means [1] EMS Treatment Prior to ED Arrival: STONE FABRICATOR treatment: None ED Events Date/Time Event User [...] N/A 07/06/2023 Surgeon: Sherice Mcmahon MD; Location: [facility] OR [facility] PARTIAL REMOVAL OF OVARY(S) Bilateral 2009 2/2 cysts TUBAL LIGATION UMBILICAL HERNIORRHAPHY N/A 07/06/2023 Surgeon: Sherice Mcmahon MD; Location: [facility] OR LOCATION Medications Medications iopamidol (ISOVUE 370-500 mL) injection 100 mL (100 mL Intravenous Given 07/20/23 0653) FENTanyl PF (SUBLIMAZE (PF)) injection 50 mcg (50 mcg Slow IV Push Given 07/20/23 1917) NaCl 0.9% (NS) bolus infusion 1,000 mL (1,000 mL IV Infusion New Bag 07/20/23 9980) Allergies Allergies Allergen Reactions Tramadol Anxiety and [...] 0.01 - 0.07 10*3/uL COMP. METABOLIC PANEL (41452) - Abnormal NA 137 135 - 145 [...] CONTRAST CBC WITH DIFF COMP. METABOLIC PANEL (45721) LIPASE TROPONIN I TROPONIN I Orders Placed [...] ED Physician in the absence of a warehouse laborer: yes Previous ECG: Previous ECG: Unavailable Interpretation: [...] Appointments In 2 days Sherice Mcmahon MD [facility] Surgery, [facility] Alton Calderon MD, FACEP, FAAEM Clay Preparation Supervisor of Emergency and Internal Medicine [facility] #[id number] Alton Calderon MD 07/20/23702 [facility] 2023-07-20 04:53:00 Formatting of this n [...] or concerns. Aurora Spencer MD 07/20/23926 T [facility] EMERGENCY PHYSICIAN STAFF [facility] 2023-07-07 11:19:18 Formatting of this n ote might be different from the original. Problem: Infection Risk Goal: Absence of infection 07/07/2023 1119 by Summer Pablo RN Outcome: Adequate for discharge 07/07/2023 1118 by Summer Pablo RN Outcome: Adequate for discharge 07/07/2023 1118 by Summer Pablo RN Outcome: Adequate for discharge [facility] Summer Pablo RN [facility] 2023-07-07 11:18:47 Formatting of this n ote might be different from the original. Problem: Infection Risk Goal: Absence of infection Outcome: Adequate for discharge [facility] 2023-07-06 21:52:47 Formatting of this n ote [...] Outcome: Progressing as expected Chiquita Barker RN [facility] 2023-07-06 17:38:00 Formatting of this n [...] Effective communication Outcome: Progressing as expected Altagracia Svaage RN [facility] 2023-07-06 11:25:35 Formatting of this n ote is different from the original. BRIEF OPERATIVE NOTE Date of Surgery: 07/06/2023 Surgeon(s) and Role: * Sherice Mcmahon MD - Primary * Laci Us MD - Resident - Assisting Pre-Op Diagnosis: Biliary colic [K80.50] Post-Op Diagnosis Codes: * Biliary colic [K80.50] Procedures: Procedure(s) (LRB): LAPAROSCOPIC CHOLECYSTECTOMY (N/A) UMBILICAL HERNIORRHAPHY (N/A) CPT: 24128, UTMBCODINGHE, Any Complications Encounters: None Estimated Blood [...] mg and Motrin 400 mg TID with [place] 5 TID PRN No heavy lifting or submerging wound for 4 weeks Shower daily Allow dressings to peel off on their own Please see dictated operative report for additional detail. [facility] 2023-07-05 21:12:34 Formatting of this n [...] Outcome: Progressing as expected Mandie Lorenzo RN [facility] 2023-07-05 17:08:42 Formatting of this n [...] Goal: Effective communication Outcome: Progressing as expected [facility] 2023-07-05 13:01:34 Formatting of this n ote might be different from the original. Nurse Report Report given to RAIMUNDO Marshall. Chief complaint, assessment findings, infusion verify and orders reviewed. Plan of care discussed with both nurses. Altagracia Moreno RN Altagracia Moreno RN [facility] 2023-07-05 12:52:59 Formatting of this n ote might be different from the original. Pt report given to RAIMUNDO Moreno. Niru Mae RN [facility] 2023-07-05 07:48:12 Formatting of this n ote might be different from the original. Epigastric discomfort all night. States she has gallbladder issues and is supposed to have surgery but doesn't have money so she just takes meds. Has "nausea, acid and something for the lining of my stomach". Katia Diaz RN [facility]
[2025-03-18] MEDS ORDERED: ONDANSETRON 4 MG/2 ML VIAL ONE (15:35)
[2025-03-18] MEDS ORDERED: FENTANYL CITR 100 MCG/2 ML ONE (15:36)
[2025-03-18] MEDS ORDERED: PANTOPRAZOLE 40 MG INJ ONE (15:36)
--- NOTE | 2025-03-18 15:47 | RAD REPORT ---
EXAMINATION: ONE VIEW CHEST XR CLINICAL INDICATION: CHEST PAIN TECHNIQUE: Frontal chest projection is submitted. Examination is limited by patient positioning and t echnique. COMPARISON: No prior exam. FINDINGS: The lungs are well inflated and clear. The heart is upper limit of normal in size. No displaced fract ures identified. IMPRESSION: No acute intrathoracic abnormalities.
[2025-03-18 16:11] LABS: Absolute Eosinophils 0.1 K/uL (0-0.5); Absolute Lymphocytes (CBC) 2.5 K/uL (0.7-4.9); Absolute Monocytes 0.7 K/uL (0.1-1.3); Absolute Neutrophil 4.8 K/uL (1.8-8.0); Basophils % 0.6 % (0-1.3); Hematocrit 35.9 % (36.0-45.0); Hemoglobin 12.1 g/dL (12.0-15.0); Lymphocytes % 30.7 % (15.3-44.8); MCH 28.2 pg (27.0-35.0); MCHC 33.8 g/dL (32.0-36.0); MCV 83.4 fL (80-100); MPV 8.2 fL (7.6-11.3); Monocytes % 8.5 % (3.3-12.3); Neutrophils % 59.2 % (41.7-73.7); Nucleated Red Blood Cells % 0.1 % (0-0); Platelets 290 thou/uL (152-406); Red Cell Distribution Width 15.4 % (12.1-15.2)
[2025-03-18 16:20] LABS: Specific Gravity > 1.030 (1.005-1.030); Urine Bacteria <20 /HPF (<20); Urine Bilirubin NEGATIVE (Negative); Urine Blood Negative (Negative); Urine Clarity Extremely Turbid (Clear); Urine Color Yellow (Yellow); Urine Crystals Unidentified Few /HPF (None Seen); Urine Culture Reflex Order REFLEXED; Urine Glucose NEGATIVE (Negative); Urine Ketones NEGATIVE (Negative); Urine Microscopic Reflex YN ORDER UMIC; Urine Mucus 4+ /HPF (None Seen); Urine Nitrite NEGATIVE (Negative); Urine Protein TRACE (Negative); Urine RBC <5 /HPF (None Seen); Urine Urobilinogen 1+ (Normal); Urine pH 5.5 (5.0-7.0)
[2025-03-18 16:21] LABS: Protime INR 1.06
[2025-03-18 16:39] LABS: Specific Gravity > 1.030 (1.005-1.030)
[2025-03-18 16:40] LABS: ALT/SGPT 15 U/L (13-56); Albumin 3.5 g/dL (3.4-5.0); Alkaline Phosphatase 68 U/L (45-117); Anion Gap 9.6 mEq/L (5.0-15.0); BUN Blood Urea Nitrogen 12 mg/dL (7-18); Bicarbonate 22 mEq/L (21-32); Bilirubin Total 0.3 mg/dL (0.2-1.0); Globulin 3.6 g/dL (2.3-3.5); Glomerular Filtration Rate 105 ml/min (=/>90); Glucose Level 88 mg/dL (74-106); Lipase 32 U/L (13-75); NT PRO-BNP 36 pg/mL (<125); Potassium 3.6 mEq/L (3.5-5.1); Protein, Total 7.1 g/dL (6.4-8.2); Sodium Level 138 mEq/L (136-145)
[2025-03-18 16:41] LABS: AST/SGOT < 10 U/L (15-37); Bilirubin Direct < 0.2 mg/dL (0-0.2); Bilirubin Indirect, Calculated 0.1 mg/dL (0.2-0.8); Troponin High Sensitivity < 3.0 pg/mL (<58.9)
[2025-03-18] MEDS ORDERED: CEFTRIAXONE 1000 MG/VIAL ONE (17:09)
[2025-03-18] MEDS ORDERED: NA CHLORIDE 0.9% 1,000 ML ONE (17:10)
--- NOTE | 2025-03-18 18:14 | RAD REPORT ---
EXAM: CT CHEST, ABDOMEN AND PELVIS WITH CONTRAST CLINICAL INDICATION: ABD PAIN TECHNIQUE: CT chest, abdomen and pelvis was performed, following the administration of contrast, as p er department protocol. Axial, sagittal and coronal reconstructions were obtained. One or more of the following dose reduction techniques were used: Automated exposure control, adjustment of the mA a nd/or kV according to patient size, and/or iterative reconstruction. Unless otherwise specified, incidental findings do not require dedicated imaging follow-up. COMPARISON: No prior exam. FINDINGS: LUNGS: No evidence of airspace or interstitial process. No nodules. PLEURA: No pleural effusion. No pneumothorax. MEDIASTINUM AND LYMPH NODES: No mediastinal mass or fluid collection. Normal size mediastinal, hilar, and axillary lymph nodes. OSSEOUS STRUCTURES AND CHEST WALL: Intact. LIVER: The liver demonstrates mild fatty infiltration. No focal lesion or biliary dilatation is seen. Small low density lesions are present, incompletely assessed. Cholecystectomy clips. PANCREAS: No mass, ductal dilation, or fabricio-pancreatic fluid. SPLEEN: Normal size. No focal lesion. ADRENALS: Normal; no mass. KIDNEYS: Normal size and contour. No hydronephrosis. URINARY BLADDER: Normal contour. GASTROINTESTINAL TRACT: No bowel obstruction, free air, significant free fluid or abscess. APPENDIX: Normal appendix. LYMPH NODES: No lymphadenopathy. MUSCULOSKELETAL: No acute or suspicious osseous abnormality. OTHER: Small fat-containing umbilical hernia. IMPRESSION: No acute finding demonstrated. Fatty liver.
[2025-03-18] MEDS ORDERED: LIDOCAINE VISCOUS 2% 10ML ORAL SOLN ONE (18:16)
[2025-03-18] MEDS ORDERED: MAGNES/ALUMIN/SIMET 30ML UCUP ONE (18:16)
--- NOTE | 2025-03-18 18:30 | ER ---
Nurse's Notes [facility] Name: Carmelita Veras Age: 40 yrs Sex: Female : 1985 Arrival Date: 03/18/2025 Time: 14:53 Bed 8 Private MD: Diagnosis: Vomiting;Abdominal tenderness;Epigastric abdominal tenderness;Chest pain, unspecified;UTI/ Urinary tract infection, site not specified Presentation: 03/18 15:19 Chief complaint: Patient states: "I've had heartburn since yesterday and feel it in my mb9 chest and gut. It makes me feel nauseous and vomit.". Coronavirus screen: Vaccine status: Patient reports being unvaccinated. Ebola Screen: No symptoms or risks identified at this time. Initial Sepsis Screen: Does the patient meet any 2 criteria? No. Patient's initial sepsis screen is negative. Does the patient have a suspected source of infection? No. Patient's initial sepsis screen is negative. Risk Assessment: Do you want to hurt yourself or someone else? Patient reports no desire to harm self or others. Onset of symptoms was March 18, 2025. 15:19 Method Of Arrival: Ambulatory 9 15:19 Acuity: JOSEFINA 3 mb9 Triage Assessment: 15:22 General: Appears uncomfortable, Behavior is anxious. Pain: Complains of pain in back mb9 and chest. EENT: No signs and/or symptoms were reported regarding the EENT system. Neuro: Sandoval Agitation-Sedation Scale (RASS): 0 - Alert and Calm Level of Consciousness is awake, alert, obeys commands, Oriented to person, place, time, situation, Appropriate for age. Cardiovascular: Patient's skin is warm and dry. Respiratory: Airway is patent Respiratory effort is even, unlabored, Respiratory pattern is regular, symmetrical. GI: Abdomen is flat, non-distended, Reports nausea, vomiting. : No signs and/or symptoms were reported regarding the genitourinary system. Derm: Skin is pink, warm \\T\\ dry. Musculoskeletal: Range of motion: intact in all extremities. Historical: - Allergies: 15:22 Tramadol HCl; mb9 - Home Meds: 15:22 None [Active]; mb9 - PMHx: 15:22 Kidney stones; Ovarian cyst; mb9 - PSHx: 15:22 Cholecystectomy; mb9 - Immunization history:: Adult Immunizations up to date. - Infectious Disease History:: Denies. - Social history:: Smoking status: Reported history of juuling and/or vaping. Screenin:[address] [facility] ED Fall Risk Assessment (Adult) History of falling in the last 3 months, mb9 including since admission No falls in past 3 months (0 pts) Confusion or Disorientation No (0 pts) Intoxicated or Sedated No (0 pts) Impaired Gait No (0 pts) Mobility Assist Device Used No (0 pt) Altered Elimination No (0 pt) Score/Fall Risk Level 0 - 2 = Low Risk Oriented to surroundings, Maintained a safe environment, Educated pt \\T\\ family on fall prevention, incl call for assistance when getting out of bed. Abuse screen: Denies threats or abuse. Nutritional screening: No deficits noted. Tuberculosis screening: No symptoms or risk factors identified. Assessment: 15:23 Reassessment: see triage assessment. mb9 15:54 Reassessment: Patient and/or family updated on plan of care and expected duration. Pain ll1 level reassessed. 17:14 Reassessment: Patient and/or family updated on plan of care and expected duration. Pain mb9 level reassessed. Patient is alert, oriented x 3, equal unlabored respirations, skin warm/dry/pink. Patient states feeling better. Patient states symptoms have improved. 18:35 Reassessment: PENDING LABS FOR D/C. cm10 19:34 Reassessment: Patient appears in no apparent distress at this time. Patient and/or lg3 family updated on plan of care and expected duration. Pain level reassessed. Patient is alert, oriented x 3, equal unlabored respirations, skin warm/dry/pink. Patient states feeling better. Patient states symptoms have improved. Vital Signs: 15:19 BP 136 / 80; Pulse 80; Resp 16; Pulse Ox 99% on R/A; Weight 63.5 kg; Height 4 ft. 11 mb9 in. ; 16:00 BP 114 / 73; Pulse 60; Resp 16; Pulse Ox 100% on R/A; mb9 17:14 BP 114 / 64; Pulse 62; Resp 15; Pulse Ox 100% on R/A; mb9 18:42 BP 105 / 57 LA; cm10 18:42 BP 104 / 72 RA; cm10 19:35 BP 106 / 54; Pulse 56; Resp 16 S; Pulse Ox 100% on R/A; lg3 15:19 Body Mass Index 28.28 (63.50 kg, 149.86 cm) mb9 ED Course: 14:57 Patient arrived in ED. al6 15:09 Nikki Montoya, RAIMUNDO is Primary Nurse. mb9 15:12 Arm band placed on. mb9 15:16 Nba Reynolsd MD is Attending Physician. derek 15:22 Triage completed. mb9 15:23 Placed in gown. Bed in low position. Call light in reach. Side rails up X 1. Provided mb9 Education on: press call light if needing anything. Client placed on continuous cardiac and pulse oximetry monitoring. NIBP monitoring applied. 15:45 XRAY Chest (1 view) In Process Unspecified. EDMS 15:54 Inserted saline lock: 22 gauge in right wrist, using aseptic technique. Flushed with 10 ll1 mL NS. 16:00 EKG done, by ED staff, reviewed by Nba Reynolds MD. mb9 18:08 Chest Abdomen Pelvis W Cont In Process Unspecified. EDMS 18:29 Miriam Joseph MD is Referral Physician. derek 18:29 Lai Cordero MD is Referral Physician. derek 19:35 No provider procedures requiring assistance completed. IV discontinued, intact, lg3 bleeding controlled, No redness/swelling at site. Pressure dressing applied. Administered Medications: 16:01 Drug: Ondansetron IVP 8 mg IVP once; over 2 minutes Route: IVP; Site: right wrist; ss 17:14 Follow up: Response: No adverse reaction mb9 16:04 Drug: Pantoprazole IVP 40 mg IVP once Route: IVP; Site: right wrist; ss 17:14 Follow up: Response: No adverse reaction mb9 16:10 Drug: fentaNYL (PF) IVP 50 mcg IVP once Route: IVP; Site: right wrist; ss 17:14 Follow up: Response: No adverse reaction mb9 17:14 Drug: Rocephin IV 1 grams IV at per protocol once; Given slow IV push per pharmacy mb9 instructions Route: IV; Rate: per protocol; Site: right forearm; 18:42 Follow up: Response: No adverse reaction; IV Status: Completed infusion; IV Intake: [id number] 17:14 Drug: NS 0.9% IV 1000 ml IV at 1 bolus Per protocol; to be given as a bolus over 60 mb9 minutes Route: IV; Rate: 1 bolus; Site: right forearm; 19:37 Follow up: IV Status: Completed infusion; IV Intake: 1000ml lg3 18:34 Drug: GI Cocktail without - (Maalox PO 30 ml, Lidocaine Mucous Membrane 2 % 15 cm10 ml) PO once Route: PO; 19:34 Follow up: Response: No adverse reaction lg3 19:34 Drug: Ciprofloxacin PO 500 mg PO once Route: PO; lg3 19:34 Follow up: Response: No adverse reaction; Medication administered at discharge. lg3 Medication: 15:23 VIS not applicable for this client. mb9 Intake: 18:42 IV: 10ml; Total: 10ml. cm10 19:37 IV: 1000ml; Total: 1010ml. lg3 Outcome: 18:29 Discharge ordered by . derek 19:35 Discharged to home ambulatory, with significant other, lg3 19:35 Condition: stable 19:35 Discharge instructions given to patient, Instructed on discharge instructions, follow up and referral plans. medication usage, Demonstrated understanding of instructions, follow-up care, medications, Prescriptions given X 4, 19:36 Patient left the ED. lg3 Signatures: Dispatcher [employer] EDMS Nba Reynolds MD MD cha Blanchard, Shelby, RN RN ss Maegan Bergeron RN RN lg3 Kennedi Reyes RN RN ll1 Jan, Nikki Batista RN RN mb9 Renée Gautam RN RN cm10 Tona Weeks6
--- NOTE | 2025-03-18 18:30 | EDPHYS ---
Physician Documentation [facility] Name: Carmelita Veras Age: 40 yrs Sex: Female : 1985 Arrival Date: 03/18/2025 Time: 14:53 Bed 8 Private MD: MEGGAN Physician Nba Reynolds HPI: 03/18 17:07 This 40 yrs old Female presents to ER via Ambulatory with complaints of derek Vomiting, heart burn, Back Pain. 17:07 The patient presents to the emergency department with nausea, vomiting, abdominal pain, derek of the right upper quadrant and left upper quadrant. Onset: The symptoms/episode began/occurred 2 day(s) ago. Possible causes: unknown. The symptoms are aggravated by nothing. The symptoms are alleviated by nothing. Severity of symptoms: At their worst the symptoms were mild in the emergency department the symptoms are unchanged despite home interventions. The patient has experienced similar episodes in the past, multiple times. Historical: - Allergies: 15:22 Tramadol HCl; mb9 - Home Meds: 15:22 None [Active]; mb9 - PMHx: 15:22 Kidney stones; Ovarian cyst; mb9 - PSHx: 15:22 Cholecystectomy; mb9 - Immunization history:: Adult Immunizations up to date. - Infectious Disease History:: Denies. - Social history:: Smoking status: Reported history of juuling and/or vaping. ROS: 17:09 Constitutional: Negative for fever, chills, and weight loss, Eyes: Negative for injury, derek pain, redness, and discharge, ENT: Negative for injury, pain, and discharge, Neck: Negative for injury, pain, and swelling, Respiratory: Negative for shortness of breath, cough, wheezing, and pleuritic chest pain, : Negative for injury, bleeding, discharge, and swelling, MS/Extremity: Negative for injury and deformity, Skin: Negative for injury, rash, and discoloration, Neuro: Negative for headache, weakness, numbness, tingling, and seizure, Psych: Negative for depression, anxiety, suicide ideation, homicidal ideation, and hallucinations, Allergy/Immunology: Negative for hives, rash, and allergies, Endocrine: Negative for neck swelling, polydipsia, polyuria, polyphagia, and marked weight changes, Hematologic/Lymphatic: Negative for swollen nodes, abnormal bleeding, and unusual bruising, 17:09 Cardiovascular: Positive for chest pain, of the chest, 17:09 Respiratory: Positive for shortness of breath, 17:09 Abdomen/GI: Positive for abdominal pain, nausea and vomiting, of the epigastric area, right upper quadrant and left upper quadrant, Exam: 17:09 Constitutional: This is a well developed, well nourished patient who is awake, alert, derek and in no acute distress. Head/Face: Normocephalic, atraumatic. Eyes: Pupils equal round and reactive to light, extra-ocular motions intact. Lids and lashes normal. Conjunctiva and sclera are non-icteric and not injected. Cornea within normal limits. Periorbital areas with no swelling, redness, or edema. ENT: Nares patent. No nasal discharge, no septal abnormalities noted. Tympanic membranes are normal and external auditory canals are clear. Oropharynx with no redness, swelling, or masses, exudates, or evidence of obstruction, uvula midline. Mucous membranes moist. Neck: Trachea midline, no thyromegaly or masses palpated, and no cervical lymphadenopathy. Supple, full range of motion without nuchal rigidity, or vertebral point tenderness. No Meningismus. Chest/axilla: Normal chest wall appearance and motion. Nontender with no deformity. No lesions are appreciated. Cardiovascular: Regular rate and rhythm with a normal S1 and S2. No gallops, murmurs, or rubs. Normal PMI, no JVD. No pulse deficits. Respiratory: Lungs have equal breath sounds bilaterally, clear to auscultation and percussion. No rales, rhonchi or wheezes noted. No increased work of breathing, no retractions or nasal flaring. Back: No spinal tenderness. No costovertebral tenderness. Full range of motion. Skin: Warm, dry with normal turgor. Normal color with no rashes, no lesions, and no evidence of cellulitis. MS/ Extremity: Pulses equal, no cyanosis. Neurovascular intact. Full, normal range of motion., bilateral aka Neuro: Awake and alert, GCS 15, oriented to person, place, time, and situation. Cranial nerves II-XII grossly intact. Motor strength 5/5 in all extremities. Sensory grossly intact. Cerebellar exam normal. Normal gait. Psych: Awake, alert, with orientation to person, place and time. Behavior, mood, and affect are within normal limits. 17:09 Abdomen/GI: Inspection: distension, Bowel sounds: normal, Palpation: mild abdominal tenderness, in the epigastric area, right upper quadrant and left upper quadrant, Liver: no appreciated palpable abnormalities, Hernia: not appreciated, 17:09 Musculoskeletal/extremity: DVT Exam: No signs of deep vein thrombosis. no pain, no swelling, no tenderness, negative Homans' sign noted on exam, no appreciated bluish discoloration, no erythema, no increased warmth, 17:14 ECG was reviewed by the Attending Physician. [facility] Vital Signs: 15:19 BP 136 / 80; Pulse 80; Resp 16; Pulse Ox 99% on R/A; Weight 63.5 kg; Height 4 ft. 11 mb9 in. ; 16:00 BP 114 / 73; Pulse 60; Resp 16; Pulse Ox 100% on R/A; mb9 17:14 BP 114 / 64; Pulse 62; Resp 15; Pulse Ox 100% on R/A; mb9 18:42 BP 105 / 57 LA; cm10 18:42 BP 104 / 72 RA; cm10 19:35 BP 106 / 54; Pulse 56; Resp 16 S; Pulse Ox 100% on R/A; lg3 15:19 Body Mass Index 28.28 (63.50 kg, 149.86 cm) mb9 MDM: 15:16 Medical Screening Exam initiated [facility] 17:11 Differential diagnosis: abnormal EKG, acute myocardial infarction, acute pericarditis, derek anxiety, coronary artery disease chest wall pain, congestive heart failure cholecystitis, Cholelithiasis costochondritis, Nonspecific abd pain, gastritis, pancreatitis, appendicitis, diverticulitis, viral gastroenteritis, gastroenteritis, esophagitis, gastritis, gastroesophageal reflux disease (GERD), herpes zoster, hiatal hernia, Tina-Noe syndrome, mitral valve prolapse, myocarditis. HEART Score: History: Slightly Suspicious (0), ECG: Normal (0), Age: < or = 45 years (0), Risk Factors: No Risk Factors Known (0), Troponin: < or = 1 x Normal Limit (0). The patient was not given aspirin in the Emergency Department. Data reviewed: vital signs, nurses notes, lab test result(s), CBC, electrolytes, hepatic panel, EKG, radiologic studies, CT scan, plain films. Consideration of Admission/Observation Escalation of care including admission/observation considered. I considered the following discharge prescriptions or medication management in the emergency department Medications were administered in the Emergency Department. See MAR. Independent interpretation of the following test(s) in the Emergency Department EKG: See my EKG interpretation above. Test considered but Not performed: Ultrasound no 2 d echo. Historians other than the Patient: pt well informed. Care significantly affected by the following chronic conditions: Obesity, ovarian cyst, kidney stones. 03/18 15:23 Order name: Basic Metabolic Panel; Complete Time: 17:04 [facility] 03/18 15:23 Order name: CBC with Diff; Complete Time: 17:04 [facility] 03/18 15:23 Order name: LFT's; Complete Time: 17:04 [facility] 03/18 15:23 Order name: Magnesium; Complete Time: 17:04 [facility] 03/18 15:23 Order name: NT PRO-BNP; Complete Time: 17:04 [facility] 03/18 15:23 Order name: PT-INR; Complete Time: 17:04 [facility] 03/18 15:23 Order name: Troponin HS; Complete Time: 17:04 [facility] 03/18 15:23 Order name: Lipase; Complete Time: 17:04 [facility] 03/18 15:23 Order name: UA Rfx Ravinder Cult if indicated; Complete Time: 17:04 [facility] 03/18 15:23 Order name: PREGU; Complete Time: 17:04 [facility] 03/18 16:44 Order name: Urine Culture [facility] 03/18 17:53 Order name: Troponin High Sensitivity: repeat; Complete Time: 19:12 [facility] 03/18 15:23 Order name: XRAY Chest (1 view); Complete Time: 17:04 [facility] 03/18 18:03 Order name: Chest Abdomen Pelvis W Cont; Complete Time: 18:29 [facility] 03/18 15:23 Order name: EKG; Complete Time: 15:24 [facility] 03/18 15:23 Order name: Cardiac monitoring; Complete Time: 15:37 [facility] 03/18 15:23 Order name: EKG - Nurse/Tech; Complete Time: 16:04 [facility] 03/18 15:23 Order name: IV Saline Lock; Complete Time: 15:37 [facility] 03/18 15:23 Order name: Labs collected and sent; Complete Time: 15:37 [facility] 03/18 15:23 Order name: O2 Per Protocol; Complete Time: 15:37 [facility] 03/18 15:23 Order name: O2 Sat Monitoring; Complete Time: 15:37 derek 03/18 18:29 Order name: Bilateral blood pressure; Complete Time: 18:42 derek EC:14 Rate is 55 beats/min. Rhythm is regular. QRS [place] is Normal. [place] interval is normal. QRS derek interval is normal. QT interval is normal. No Q waves. T waves are Normal. Clinical impression: NSR w/ Non-specific ST/T Changes and No evidence of ischemia. Interpreted by me. Reviewed by me. Administered Medications: 16:01 Drug: Ondansetron IVP 8 mg IVP once; over 2 minutes Route: IVP; Site: right wrist; ss 17:14 Follow up: Response: No adverse reaction mb9 16:04 Drug: Pantoprazole IVP 40 mg IVP once Route: IVP; Site: right wrist; ss 17:14 Follow up: Response: No adverse reaction mb9 16:10 Drug: fentaNYL (PF) IVP 50 mcg IVP once Route: IVP; Site: right wrist; ss 17:14 Follow up: Response: No adverse reaction mb9 17:14 Drug: Rocephin IV 1 grams IV at per protocol once; Given slow IV push per pharmacy mb9 instructions Route: IV; Rate: per protocol; Site: right forearm; 18:42 Follow up: Response: No adverse reaction; IV Status: Completed infusion; IV Intake: [id number] 17:14 Drug: NS 0.9% IV 1000 ml IV at 1 bolus Per protocol; to be given as a bolus over 60 mb9 minutes Route: IV; Rate: 1 bolus; Site: right forearm; 19:37 Follow up: IV Status: Completed infusion; IV Intake: 1000ml lg3 18:34 Drug: GI Cocktail without - (Maalox PO 30 ml, Lidocaine Mucous Membrane 2 % 15 cm10 ml) PO once Route: PO; 19:34 Follow up: Response: No adverse reaction lg3 19:34 Drug: Ciprofloxacin PO 500 mg PO once Route: PO; lg3 19:34 Follow up: Response: No adverse reaction; Medication administered at discharge. lg3 Disposition Summary: 03/18/25 18:29 Discharge Ordered Notes: Location: Home derek Problem: new derek Symptoms: have improved derek Condition: Stable derek Diagnosis - Vomiting derek - Abdominal tenderness derek - Epigastric abdominal tenderness derek - Chest pain, unspecified derek - UTI/ Urinary tract infection, site not specified derek Followup: derek - With: Private Physician - When: 2 - 3 days - Reason: Recheck today's complaints, Continuance of care, Re-evaluation by your physician Followup: derek - With: Miriam Joseph MD - When: 2 - 3 days - Reason: Recheck today's complaints, Re-evaluation by your physician Followup: derek - With: Lai Cordero MD - When: 2 - 3 days - Reason: Recheck today's complaints, Re-evaluation by your physician Discharge Instructions: - Discharge Summary Sheet derek - Acute Back Pain, Adult derek - Nonspecific Chest Pain, Adult derek - Urinary Tract Infection, Adult derek - Urinary Tract Infection, Adult, [id number] derek - Abdominal Pain, Adult, [id number] derek - Nonspecific Chest Pain, Adult, [id number] derek - Aspirin and Your Heart [facility] Forms: - Medication Reconciliation Form derek - Antibiotic Education derek - Prescription Opioid Use derek - Patient Portal Instructions derek - Leadership Thank You Letter [facility] - Work release form lg3 Prescriptions: - ondansetron 8 mg Oral Tablet,disintegrating - take 1 tablet ORAL route every 6-8 hours as needed for nausea and vomiting; 20 derek tablet; Refills: 0, Product Selection Permitted - Carafate 1 gram Oral tablet - take 1 tablet ORAL route 4 times per day take on an empty stomach, beginning on derek waking and last dose at bedtime; 40 tablet; Refills: 0, Product Selection Permitted - Cipro 250 mg Oral tablet - take 1 tablet ORAL route every 12 hours; 14 tablet; Refills: 0, Product derek Selection Permitted - Protonix 40 mg Oral Tablet - take 1 tablet ORAL route once daily; 30 tablet; Refills: 0, Product Selection derek Permitted Signatures: Dispatcher [employer] EDMS Nba Reynolds MD MD cha Blanchard, Shelby RN RAIMUNDO ss Maegan Bergeron RN RN lg3 Nikki Montoya RN RN mb9 Renée Gautam RN RN cm10 Corrections: (The following items were deleted from the chart) 15:24 15:24 BASIC METABOLIC PANEL+C.LAB.BRZ ordered. EDMS EDMS 15:24 15:24 CBC+H.LAB.BRZ ordered. EDMS EDMS 15:24 15:24 HEPATIC FUNCTION+C.LAB.BRZ ordered. EDMS EDMS 15:24 15:24 MAGNESIUM+C.LAB.BRZ ordered. EDMS EDMS 15:24 15:24 PROBNP+C.LAB.BRZ ordered. EDMS EDMS 15:24 15:24 PROTIME (+INR)+COAG.LAB.BRZ ordered. EDMS EDMS 15:24 15:24 Troponin High Sensitivity+C.LAB.BRZ ordered. EDMS EDMS 15:24 15:24 LIPASE+C.LAB.BRZ ordered. EDMS EDMS 15:24 15:24 UA Rfx Ravinder Cult if indicated+U.LAB.BRZ ordered. EDMS EDMS 15:24 15:24 Test, Urine+UC.LAB.BRZ ordered. EDMS EDMS 18:03 15:24 Angio Aorta For Dissection+CT.RAD.BRZ ordered. EDMS EDMS
[2025-03-18] MEDS ORDERED: CIPROFLOXACIN HCL 500 MG TAB ONE (19:24)
[2025-03-18 19:57] VITALS: O2SAT 100
[2025-03-18 20:00] VITALS: BP 106/54
--- NOTE | 2025-03-19 12:05 | EKG ---
Test Date: 2025-03-18 Test Time: 15:58:35 Microcomputer Technician: AM MEASUREMENT RESULTS: Intervals: Rate: 55 VA: 116 QRSD: 90 QT: 402 QTc: 384 [place]: P: 37 VA: 116 QRS: 43 T: 19 INTERPRETIVE STATEMENTS: Sinus bradycardia RSR' or QR pattern in V1 suggests right ventricular conduction delay Cannot rule out Anteroseptal infarct, age undetermined Abnormal ECG Compared to ECG 08/03/2017 13:56:17 No significant changes Electronically Signed On 03-19-25 12:04:50 CDT by David Moore
== END 2025-03-18 19:36 | disposition home or self-care (01) ==
LOC: ER 14:53
DX: R11.10 Vomiting, unspecified (principal); R10.816 Epigastric abdominal tenderness; R07.9 Chest pain, unspecified; N39.0 Urinary tract infection, site not specified; Z87.442 Personal history of urinary calculi
CPT/HCPCS: 36415; 71045; 71260; 74177; 80048; 80076; 81001; 81025; 83690; 83735; 83880; 84484; 85025; 85610; 87086; 87088; 93005; 96361; 96365; 96375; 99284; J0696; J2405; J2470; J3010; J7030; Q9967